=== PATIENT | female | born 2000 ===

== ENCOUNTER 2024-11-21 08:14 | Outpatient (AMB) | payer BC, SELFPAY ==
--- NOTE | 2024-11-21 08:23 | OBCLNT_ITS ---
Vital Signs 11/21/24 08:24 Height 1.65 m Height Method Stated Weight 84.028 kg Weight Measurement Method Standing Scale BMI 30.8 BP 127/84 Blood Pressure Source Automatic Cuff Blood Pressure Location Left Upper Arm Position Sitting Respiration 18 Pulse 76 Pulse Source Monitor Temp 96.8 F Temp Source Oral Pulse Oximetry (%) 98 Oxygen Delivery Method Room Air Allergies/Home Meds Allergies & Medications Allergies No Known Allergies Allergy (Verified 11/21/24 08:26) Medication Reconciliation No Known Home Medications 11/21/24 [History Confirmed 11/21/24] Intake Visit Data Collection New Patient or Established: New Patient not seen in past 3 years at [facility] (considered New) Reason for Visit:: First visit for at 7 weeks gestation Seen by Clinical Staff ONLY (RN/MA): No Ice Skating Teacher Required: No Do You Feel Safe at Home: Yes Authorities Contacted: N/A PCP or OBGYN visit in last 3 months: No Hx Now: Yes Are you currently on any form of Control: No Last menstrual period: 09/22/24 Pain Present Currently: No Pain Scale Used: Maya-Hall/Numerical Pain scale:: 0 Smoking Status Smoking Status: Never smoker Questionnaires Covid-19 Vaccine Questionnaire Has patient been vacinated for Covid-19 Have you been vacinated for Covid-19: No PHQ-9 PHQ-2 Over the last 2 weeks, how often have you been bothered by any of the following problems? 1. Little interest or pleasure in doing things: not at all 2. Feeling down, depressed, or hopeless: not at all Total score: 0 PHQ-9 3. Trouble falling or staying asleep, or sleeping too much: Not at all 4. Feeling tired or having little energy: Not at all 5. Poor appetite or overeating: Not at all 6. Feeling bad about yourself - or that you are a failure or have let yourself or your family down: Not at all 7. Trouble concentrating on things, such as reading the newspaper or watching television: Not at all 8. Moving or speaking so slowly that other people could have noticed? - Or the opposite - being so fidgety or restless that you have been moving around a lot more than usual: not at all 9. Thoughts that you would be better off or of hurting yourself in some way: Not at all Total score: 0 If you checked off any problems, how difficult have these problems made it for you to do your work, take care of things at home, or get along with other people?: not difficult at all Source: Developed by Drs. Brian Gamble, Marsha Calle, Nayan Regan and colleagues, with an educational rayray from [employer]. Depression screen completed yes Social History Living Situation History Marital Status: Single Lives With: Family Housing: House Tobacco History Smoking Status: Never smoker Alcohol History Alcohol Intake: Never Domestic Abuse History Do You Feel Safe at Home: Yes Past Medical History Past Medical History Have you ever been diagnosed with any of the following: History of Present Illness HPI Narrative María Wisdom, a 21-year-old female, presents for her first visit. She reports her last menstrual period was on September 22, 2024, placing her at approximately 7 weeks gestation with an estimated due date of July 10, 2025. This is her first . The patient reports experiencing mild nausea but denies vomiting. She also notes breast tenderness. María mentions having some cramping at the beginning of her , which she attributes to dehydration during implantation. She states that increasing her fluid intake has alleviated this symptom. The patient has a history of fibroids, which were diagnosed through an ultrasound performed in November of the previous year by Dr. Easton Duong at [facility]. María is accompanied by her partner, Presley, who is also 21 years old. The patient appears to be continuing her regular work routine, as she mentions going to work after the appointment. No significant changes in overall health status or daily functioning are reported. Medical History - Uterine fibroids, diagnosed via ultrasound in November 2023 Social History - Relationship Status: In a relationship with partner Presley, age 21 Review of Systems General: Positive for breast tenderness. Gastrointestinal: Positive for mild nausea, negative for vomiting. OB Ultrasound OB Ultrasound Ultrasound technique: transabdominal Gestational sac assessment: Presence, location, size, shape: - Ultrasound (ThuNov 21 2024): - Gestational sac visualized - heart rate: 165 bpm - Fibroid noted outside of sac OB Initial Visit OB Flowsheet OB Flowsheet Initial Weight: Not Recorded Date -?-?-?-?-?-?-?-?-?-?-?-?- EGA Weight Edema CTX Effacement BP Fundal ht Pres Dilation Effacement Station Visit Note Alb Glu FHR Mov 11/21/24 -?-?-?-?-?-?-?-?-?-?-?-?- 8w 4d 84.028 kg 127/84 21-ye ar-old , presents for her first visit. experiencing mild nausea but denies vomi ting. She also notes breast tenderness. Uterine fibroids, diagnosed via ultrasou nd in November 2023. - Ultrasound (ThuNov 21 2024): - Gestational sac visualized - heart rate: 165 bpm - Fibroid noted outside of s ac. - Perform initial lab tests - Schedule NIPT (non-invasive t esting) at 9 weeks gestation for genetic screening and optional sex determination - Schedule 12-week ultrasound for offici al dating and anatomical survey - Schedule 20-week ultrasound for detail ed anatomical survey - Follow-up appointment in 7-10 days to review lab results and repeat ultrasound 165 Menstrual History Menstrual reliability: definite Flow: normal Menstrual regularity: regular Age at menarche: 9 On control pills at conception: No Date of positive home test: 10/15/24 OB History : 1 Para: 0 Hx # Pregnancies: 0 Hx Total # of Abortions (Spontaneous & Elective): 0 # of Living Children: 0 Infection History & Risk Evaluation History of STDs: none HIV risk evaluation: low risk Hepatitis B risk evaluation: low risk Patient or partner has history of Genital Herpes: No Varicella/chicken pox status: immunized Genetic Screening & History Genetic Screening/Teratology Counseling - Includes patient, baby's father, or anyone in either family with: 1. Patient's age 35 years or older as of estimated date of delivery: No 2. Thalassemia (Montenegrin, Cymraes, Mediterranean, or Background); MCV less than 80: No 3. Neural Tube Defect (Meningomyelocele, Spina Bifida, or Anencephaly): No 4. Congenital Heart Defect: No 5. Down Syndrome: No 6. Michel-Sachs (Ashkenazi Episcopalian, Cajun, Sinhala [place]): No 7. Kaye Disease (Ashkenazi Episcopalian): No 8. Familial Dysautonomia (Ashkenazi Episcopalian): No 9. Sickle Cell Disease or Trait (): No 10. Hemophilia or other blood disorders: No 11. Muscular Dystrophy: No 12. Cystic Fibrosis: No 13. [place]'s Chorea: No 14. Mental Retardation/Autism: No 15. Other inherited genetic or chromosomal disorder: No 16. Maternal Metabolic Disorder (EG,TYPE 1 Diabetes, PKU): No 17. Patient or baby's father had a child with defects not listed above: No 18. Recurrent loss or a stillbirth: No 19. Medications (including supplements, vitamins, herbs or otc drugs)/illicit/recreational drugs/alcohol since last menstrual period: No 20. Any other: No Infection History 1. Live with someone with TB or exposed to TB: No 2. Rash or viral illness since last menstrual period: No 3. Hepatitis B,C: No Other (see comments) Source: [employer] Assessment & Plan Diagnosis / Problem List (1) Supervision of high risk , unspecified, first trimester: Status: Acute Plan Jaky Wisdom, a 21-year-old female, presents for her first visit at 7 weeks gestation with an estimated due date of July 10, 2025, based on LMP of September 22, 2024. Intrauterine Assessment: Patient presents for first visit. LMP on September 22, 2024, yields an estimated gestational age of 7 weeks and an estimated due date of July 10, 2025. Transvaginal ultrasound performed in office confirms intrauterine with cardiac activity present. heart rate measured at 165 bpm, which is within normal range for gestational age. Patient reports mild nausea and breast tenderness, consistent with early symptoms. She also experienced some mild cramping early in , which has resolved with improved hydration. Plan: - Perform initial lab tests - Schedule NIPT (non-invasive testing) at 9 weeks gestation for genetic screening and optional sex determination - Schedule 12-week ultrasound for official dating and anatomical survey - Schedule 20-week ultrasound for detailed anatomical survey - Follow-up appointment in 7-10 days to review lab results and repeat ultrasound Uterine fibroids Assessment: Patient has a history of uterine fibroids, diagnosed by ultrasound in November of the previous year. Current ultrasound shows fibroid(s) present but not interfering with the gestational sac. Fibroids are expected to remain stable throughout and are not anticipated to cause complications. Plan: - Continue to monitor fibroids during routine care - No specific intervention required at this time Office Procedures OB Clinic LOC & Office Proc's Nursing/Assessment Patient Status: Initial/New Patient OB Clinic Nursing Assessment: BP Monitoring, Medication Reconciliation, Update PMH in EMR and Vital Signs OB Clinic Coordination of Care: Complex Care and Chronic Disease 1-5, Consent,records obtained, informed consent, Lab and Imaging orders and Staff clarify orders New Patient Charge New Patient Point Assignment: [id number] New Patient Point Charge: SPORTS MARKETER Level 3 ([id number]) Bedside Ultrasounds US Transabdominal <14 weeks at bedside: Yes
[2024-11-21 08:24] VITALS: BP 127/84; PULSE 76; RESP 18; TEMP 36; O2SAT 98; BMI 30.8
== END 2024-11-21 08:56 | disposition home or self-care (01) ==
LOC: HODSOBC 08:14
PROVIDERS: PCP Physician Assistant; Referring Provider Physician Assistant; Supervising Provider Obstetrics & Gynecology; Visit Provider Obstetrics & Gynecology
DX: O09.891 Supervision of other high risk pregnancies, first trimester (principal); Z3A.08 8 weeks gestation of pregnancy; O34.11 Maternal care for benign tumor of corpus uteri, first trimester; D25.9 Leiomyoma of uterus, unspecified
CPT/HCPCS: 76801; 99203; G0463

== ENCOUNTER → 2024-11-21 | Outpatient (CLI) | payer BC, SELFPAY ==
[2024-11-21 10:17] LABS: Misc Send Out* See Sep Rpt
[2024-11-21 10:54] LABS: Thyroid Stimulating Hormone 0.53 uIU/mL (0.55-4.78)
[2024-11-21 11:11] LABS: Collection Type, Urine Clean Catch; RBC,Urine 0 /hpf (0-3)
[2024-11-21 11:11] LABS: Syphilis Nonreactive (Nonreactive)
[2024-11-21 11:36] LABS: Hepatitis B Surface Antigen Non Reactive (Non React); Hepatitis C Antibody Non Reactive (Non React); Rubella, IgG Antibody Reactive (Immune)
[2024-11-21 11:49] LABS: HIV (1&2) Antibody Rapid Non-Reactive
[2024-11-21 12:37] LABS: Bacteria,Urine Rare; Bilirubin,Urine Negative (Negative); Blood,Urine Negative (Negative); Color,Urine Lt-Yellow (Lt Yel-Yel); Culture Indicated,Urine Not Indicated; Glucose, Urine Negative (Negative); Ketones,Urine Negative (Negative); Leukocyte Esterase,Urine Negative (Negative); Nitrite,Urine Negative (Negative); Protein,Urine Negative (Neg - Trace); Specific Gravity,Urine 1.008 (1.001-1.035); Squamous Epithelial Cell,Urine 13 /hpf (0-5); Transitional Epi Cells,Urine < 1 /hpf (0-5); Urobilinogen,Urine Negative mg/dL (0.0-1.0); WBC,Urine 2 /hpf (0-5)
[2024-11-21 12:53] LABS: Clarity,Urine Hazy (Clear/Hazy)
[2024-11-21 15:35] LABS: Chlamydia trachomatis PCR Negative (Not Detect); Neisseria Gonorrhoeae DNA PCR Negative (Not Detect); Trichomonas Negative (Negative)
[2024-11-24 07:26] LABS: Varicella-Zoster IgG Ab* 7.95 S/CO
== END | disposition home or self-care (01) ==
LOC: COPL 09:32
PROVIDERS: PCP Physician Assistant; Referring Provider Obstetrics & Gynecology; Visit Provider Obstetrics & Gynecology
DX: O09.91 Supervision of high risk pregnancy, unspecified, first trimester (principal); Z3A.00 Weeks of gestation of pregnancy not specified
CPT/HCPCS: 36415; 81001; 84443; 86703; 86762; 86780; 86787; 86803; 86850; 86900; 86901; 87340; 87491; 87591; 87661

== ENCOUNTER 2024-12-06 10:50 | Outpatient (AMB) | payer BC, SELFPAY ==
[2024-12-06 11:02] VITALS: BP 134/87; PULSE 95; RESP 18; TEMP 36.4; O2SAT 98; BMI 30.7
--- NOTE | 2024-12-06 11:02 | OBCLNT_ITS ---
Vital Signs 12/06/24 11:02 Height 1.65 m Height Method Stated Weight 83.461 kg Weight Measurement Method Standing Scale BMI 30.7 BP 134/87 H Blood Pressure Source Automatic Cuff Blood Pressure Location Right Upper Arm Position Sitting Respiration 18 Pulse 95 Pulse Source Monitor Temp 97.5 F Temp Source Temporal Artery Scan Pulse Oximetry (%) 98 Oxygen Delivery Method Room Air Allergies/Home Meds Allergies & Medications Allergies No Known Allergies Allergy (Verified 12/06/24 11:03) Medication Reconciliation vits no.126-ferrous fum 28 mg iron-folic acid 800 mcg tablet (Classic ) tab PO 12/06/24 [History Confirmed 12/06/24] Intake Visit Data Collection New Patient or Established: Established Patient (seen at [facility] within 3 years) Reason for Visit:: obc Do You Feel Safe at Home: Yes Authorities Contacted: N/A PCP or OBGYN visit in last 3 months: Yes Pain Present Currently: No Smoking Status Smoking Status: Never smoker Questionnaires Covid-19 Vaccine Questionnaire Has patient been vacinated for Covid-19 Have you been vacinated for Covid-19: Yes PHQ-9 PHQ-2 Over the last 2 weeks, how often have you been bothered by any of the following problems? 1. Little interest or pleasure in doing things: not at all 2. Feeling down, depressed, or hopeless: not at all Total score: 0 PHQ-9 8. Moving or speaking so slowly that other people could have noticed? - Or the opposite - being so fidgety or restless that you have been moving around a lot more than usual: not at all Source: Developed by Drs. Brian Gamble, Marsha Calle, Nayan Regan and colleagues, with an educational rayray from [employer]. Depression screen completed yes Social History Living Situation History Lives With: Family Housing: House Tobacco History Smoking Status: Never smoker Alcohol History Alcohol Intake: Never Domestic Abuse History Do You Feel Safe at Home: Yes Past Medical History Past Medical History Have you ever been diagnosed with any of the following: History of Present Illness HPI Narrative - María Chaparro presents for a visit at 10 weeks and 5 days gestation. - Patient was previously seen for an early visit. - She reports that her nausea has subsided. - Nausea peaked around 9 weeks of . - Improvement noted between 10 to 15 weeks. - Denies any current issues with vomiting. - No other complaints or concerns reported. No contractions/ LOF/VB, reports good FM No TRINH/VC/RUQ/Epig pain Visit OB Visit Log OB Flowsheet Initial Weight: Not Recorded Date -?-?-?-?-?-?-?-?-?-?-?-?- EGA Weight Edema CTX Effacement BP Fundal ht Pres Dilation Effacement Station Visit Note Alb Glu FHR Mov 11/21/24 -?-?-?-?-?-?-?-?-?-?-?-?- 8w 4d 84.028 kg 127/84 21-ye ar-old , presents for her first visit. experiencing mild nausea but denies vomi ting. She also notes breast tenderness. Uterine fibroids, diagnosed via ultrasou nd in November 2023. - Ultrasound (ThuNov 21 2024): - Gestational sac visualized - heart rate: 165 bpm - Fibroid noted outside of s ac. - Perform initial lab tests - Schedule NIPT (non-invasive t esting) at 9 weeks gestation for genetic screening and optional sex determination - Schedule 12-week ultrasound for offici al dating and anatomical survey - Schedule 20-week ultrasound for detail ed anatomical survey - Follow-up appointment in 7-10 days to review lab results and repeat ultrasound 165 12/06/24 -?-?-?-?-?-?-?-?-?-?-?-?- 10w 5d 83.461 kg 134/87 No C TX/LOF/VB. Reports good FM. No TRINH/VS, Epig/RUQ pain. Nausea peaked around 9w and has now subs ided. Denies vomiting or other concerns. Ultrasound: FHR 165 bpm. head, bod y, limbs visualized. Labs: Blood type O Rh-negative, Ab scree n negative, TSH 0.53. UA: epithelial cells present. STI panel and infectious labs negative. Rubella immune, varicella IgG positive. NIPT pending. Assessment & Plan: 10w5d IUP, reassuring findings, resolved early symptoms. Rh-negative. Schedule NT scan at [place] Provide [facility] form for NIPT Social Media Job Titles on Rhogam if any bleeding occurs Continue routine care Reviewed labor signs and routine counseling No CTX/LOF/VB. Reports good FM. No TRINH/VS, Epig/RUQ pain. Nausea peaked around 9w and has now subs ided. Denies vomiting or other concerns. Ultrasound: FHR 165 bpm. head, bod y, limbs visualized. Labs: Blood type O Rh-negative, Ab scree n negative, TSH 0.53. UA: epithelial cells present. STI panel and infectious labs negative. Rubella immune, varicella IgG positive. NIPT pending. Assessment & Plan: 10w5d IUP, reassuring findings, resolved early symptoms. Rh-negative. Schedule NT scan at [place] Provide [facility] form for NIPT Social Media Job Titles on Rhogam if any bleeding occurs Continue routine care Reviewed labor signs and routine counseling. Laboratory, Imaging, and Diagnostic Test Results - Date: 11/21/2024 - Blood group: O negative - Antibody screen: Negative - TSH: 0.53 - Urinalysis: Squamous epithelial cell s present, otherwise within normal limits - Syphilis serology: Negative - Gonorrhea: Negative - Chlamydia: Negative - Hepatitis B: Negative - Hepatitis C: Negative - HIV 1 and 2: Negative - Rubella: Immune - Trichomonas: Negative - Varicella zoster antibody: Positive - Ultrasound (12/06/2024): - Gestational age: 10 weeks 2 days - heart rate: 165 bpm - anatomy: Head, body, hands, and legs visualized 165 RASHAAD Calculator Estimated Delivery Date Method Current WG Current Estimate 06/29/25 LMP (Certain) 11w 0d Exam General General Appearance: alert, in no apparent distress and healthy appearing Head Head exam: atraumatic Neck Neck exam: Present normal inspection and trachea midline Chest Chest inspection: Present normal inspection and symmetric chest wall rise External exam: Present normal external exam; Absent tenderness Neuro Neurological exam: Present oriented X3 Psych Psychiatric exam: Present normal affect and normal mood Assessment & Plan Diagnosis / Problem List (1) Supervision of high risk , unspecified, first trimester: Status: Acute Plan María Chaparro, at 10 weeks 5 days gestation, presents for routine visit with recent lab results. Intrauterine Assessment: Patient is at 10 weeks and 2 days gestation based on previous ultrasound. Current ultrasound shows a viable fetus with heart rate of 165 bpm. Head, body, hands, and legs visualized. Patient reports improvement in nausea and vomiting symptoms, which is consistent with expected course of first trimester symptoms. Plan: - Continue routine care - Nuchal translucency ultrasound scheduled at [facility] - Order Non-Invasive Testing (NIPT) - Provide lab slip for NIPT - Educate patient on importance of communicating O negative blood type in case of bleeding or ER visits - Administer RhoGAM as indicated for O negative blood type - Follow up after nuchal translucency ultrasound results laboratory results Assessment: Recent labs (11/21/2024) show: - Blood type: O negative with negative antibody screen - TSH: 0.53 (within normal limits) - Urinalysis: Squamous epithelial cells present, otherwise normal - Negative results for syphilis, gonorrhea, chlamydia, hepatitis B, hepatitis C, HIV 1 and 2 - Rubella immune - Trichomonas negative - Varicella zoster antibody positive These results indicate appropriate immune status and absence of common infections. Plan: - No further action needed for completed labs - Await NIPT results Office Procedures OB Clinic LOC & Office Proc's Nursing/Assessment Patient Status: Established Patient OB Clinic Nursing Assessment: BP Monitoring, Medication Reconciliation, Update PMH in EMR and Vital Signs OB Clinic Coordination of Care: Complex Care and Chronic Disease 1-5, Education Complex Pt/Fam and Staff clarify orders Established Patient Charge Established Patient Point Assignment: 100 Established Patient Point Charge: EP Level 3 (80-115)
== END 2024-12-06 11:31 | disposition home or self-care (01) ==
LOC: HODSOBC 10:50
PROVIDERS: PCP Obstetrics & Gynecology; Referring Provider Obstetrics & Gynecology; Supervising Provider Obstetrics & Gynecology; Visit Provider Obstetrics & Gynecology
DX: O09.91 Supervision of high risk pregnancy, unspecified, first trimester (principal); Z3A.10 10 weeks gestation of pregnancy
CPT/HCPCS: 99213; G0463

== ENCOUNTER 2025-01-04 10:58 | Outpatient (AMB) | payer BC, SELFPAY ==
[2025-01-04 11:04] VITALS: BP 124/84; PULSE 84; RESP 16; TEMP 36.6; O2SAT 98; BMI 30.4
--- NOTE | 2025-01-04 11:04 | AMB.OBVISIT ---
Vital Signs 01/04/25 11:04 Height 1.65 m Height Method Stated Weight 83.064 kg Weight Measurement Method Standing Scale BMI 30.4 BP 124/84 Blood Pressure Source Automatic Cuff Blood Pressure Location Right Upper Arm Position Sitting Respiration 16 Pulse 84 Pulse Source Monitor Temp 97.9 F Temp Source Oral Pulse Oximetry (%) 98 Oxygen Delivery Method Room Air Allergies/Home Meds Allergies & Medications Allergies No Known Allergies Allergy (Verified 01/04/25 11:05) Medication Reconciliation vits no.126-ferrous fum 28 mg iron-folic acid 800 mcg tablet (Classic ) tab PO 12/06/24 [History Confirmed 01/04/25] Intake Visit Data Collection New Patient or Established: Established Patient (seen at [facility] within 3 years) Reason for Visit:: CARE Seen by Clinical Staff ONLY (RN/MA): No Test Operator Required: No Do You Feel Safe at Home: Yes Authorities Contacted: N/A PCP or OBGYN visit in last 3 months: Yes Hx Now: Yes Are you currently on any form of Control: No Pain Present Currently: No Pain Scale Used: Maya-Hall/Numerical Pain scale:: 0 Smoking Status Smoking Status: Never smoker Questionnaires Covid-19 Vaccine Questionnaire Has patient been vacinated for Covid-19 Have you been vacinated for Covid-19: Yes PHQ-9 PHQ-2 Over the last 2 weeks, how often have you been bothered by any of the following problems? 1. Little interest or pleasure in doing things: not at all 2. Feeling down, depressed, or hopeless: not at all Total score: 0 PHQ-9 3. Trouble falling or staying asleep, or sleeping too much: Not at all 4. Feeling tired or having little energy: Not at all 5. Poor appetite or overeating: Not at all 6. Feeling bad about yourself - or that you are a failure or have let yourself or your family down: Not at all 7. Trouble concentrating on things, such as reading the newspaper or watching television: Not at all 8. Moving or speaking so slowly that other people could have noticed? - Or the opposite - being so fidgety or restless that you have been moving around a lot more than usual: not at all 9. Thoughts that you would be better off or of hurting yourself in some way: Not at all Total score: 0 Source: Developed by Drs. Brian Gamble, Marsha Calle, Nayan Regan and colleagues, with an educational rayray from [employer]. Depression screen completed yes Social History Living Situation History Lives With: Family Housing: House Tobacco History Smoking Status: Never smoker Alcohol History Alcohol Intake: Never Domestic Abuse History Do You Feel Safe at Home: Yes History of Present Illness HPI Narrative The patient is a 24-year-old G1, P0 who usually sees Dr. Amos who was scheduled today by accident. She presents for a routine OB visit. 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 She has a structural survey scheduled with [facility] but Dr. Cardozo is ordered. Her NIPT is back at [facility] OB Visit Log OB Flowsheet Initial Weight: Not Recorded Date <del>?</del> EGA Weight BP Alb Glu CTX Pres Fundal ht FHR Mov Dilation Station Effacement Hx Notes Visit Note 11/21/24 <del>?</del> 8w 4d 84.028 kg 127/84 165 21-year-old , presents for her first visit. experiencing mild nausea but denies vomiting. She also notes breast tenderness. Uterine fibroids, diagnosed via ultrasound in November 2023. - Ultrasound (ThuNov 21 2024): - Gestational sac visualized - heart rate: 165 bpm - Fibroid noted outside of sac. - Perform initial lab tests - Schedule NIPT (non-invasive testing) at 9 weeks gestation for genetic screening and optional sex determination - Schedule 12-week ultrasound for official dating and anatomical survey - Schedule 20-week ultrasound for detailed anatomical survey - Follow-up appointment in 7-10 days to review lab results and repeat ultrasound 12/06/24 <del>?</del> 10w 5d 83.461 kg 134/87 165 No CTX/LOF/VB. Reports good FM. No TRINH/VS, Epig/RUQ pain. Nausea peaked around 9w and has now subsided. Denies vomiting or other concerns. Ultrasound: FHR 165 bpm. head, body, limbs visualized. Labs: Blood type O Rh-negative, Ab screen negative, TSH 0.53. UA: epithelial cells present. STI panel and infectious labs negative. Rubella immune, varicella IgG positive. NIPT pending. Assessment & Plan: 10w5d IUP, reassuring findings, resolved early symptoms. Rh-negative. Schedule NT scan at [place] Provide [facility] form for NIPT Clinical Research Technician on Rhogam if any bleeding occurs Continue routine care Reviewed labor signs and routine counseling No CTX/LOF/VB. Reports good FM. No TRINH/VS, Epig/RUQ pain. Nausea peaked around 9w and has now subsided. Denies vomiting or other concerns. Ultrasound: FHR 165 bpm. head, body, limbs visualized. Labs: Blood type O Rh-negative, Ab screen negative, TSH 0.53. UA: epithelial cells present. STI panel and infectious labs negative. Rubella immune, varicella IgG positive. NIPT pending. Assessment & Plan: 10w5d IUP, reassuring findings, resolved early symptoms. Rh-negative. Schedule NT scan at [place] Provide [facility] form for NIPT Clinical Research Technician on Rhogam if any bleeding occurs Continue routine care Reviewed labor signs and routine counseling. Laboratory, Imaging, and Diagnostic Test Results - Date: 11/21/2024 - Blood group: O negative - Antibody screen: Negative - TSH: 0.53 - Urinalysis: Squamous epithelial cells present, otherwise within normal limits - Syphilis serology: Negative - Gonorrhea: Negative - Chlamydia: Negative - Hepatitis B: Negative - Hepatitis C: Negative - HIV 1 and 2: Negative - Rubella: Immune - Trichomonas: Negative - Varicella zoster antibody: Positive - Ultrasound (12/06/2024): - Gestational age: 10 weeks 2 days - heart rate: 165 bpm - anatomy: Head, body, hands, and legs visualized 01/04/25 <del>?</del> 14w 6d 83.064 kg 124/84 140 No movement no bleeding no contractions RASHAAD Calculator Estimated Delivery Date Method Current WG Current Estimate 06/29/25 LMP (Certain) 14w 6d Comments: labs:O- /antibody screen negative/ hepatitis B surface antigen negative /GC chlamydia negative /rubella immune/ RPR nonreactive /HIV negative /hep C negative Specific Issue/Plans Rh-. Will need RhoGAM. Notes Visit Date: 01/04/25 Last Updated by: Sandra Seals (OB Clinic)MD NIPT reviewed with patient and father the baby [facility] Office Procedures OB Clinic LOC & Office Proc's Nursing/Assessment Patient Status: Established Patient OB Clinic Nursing Assessment: Medication Reconciliation, Update PMH in EMR and Vital Signs OB Clinic Coordination of Care: Complex Care and Chronic Disease 1-5, Consent,records obtained, informed consent, Education Simp Pt/Fam, Lab and Imaging orders, Results/Orders obtained and Staff clarify orders Special Needs: Heart tones Established Patient Charge Established Patient Point Assignment: 135 Established Patient Point Charge: EP Level 4 (120-155) Assessment & Plan Diagnosis / Problem List (1) : Status: Acute Qualifiers: Weeks of gestation: 14 weeks Qualified Code(s): Z3A.14 - 14 weeks gestation of Assessment and Plan: 's labs are on the chart. Level 2 ultrasound was ordered. NIPT is back. Follow-up with Dr. Chauhan in 4 weeks.
== END 2025-01-04 11:31 | disposition home or self-care (01) ==
LOC: HODSOBC 10:58
PROVIDERS: PCP Obstetrics & Gynecology; Referring Provider Obstetrics & Gynecology; Supervising Provider Obstetrics & Gynecology; Visit Provider Obstetrics & Gynecology
DX: Z34.02 Encounter for supervision of normal first pregnancy, second trimester (principal); Z3A.14 14 weeks gestation of pregnancy; Z67.41 Type O blood, Rh negative
CPT/HCPCS: 99214; G0463

== ENCOUNTER 2025-02-01 09:47 | Outpatient (AMB) | payer BC, SELFPAY ==
[2025-02-01 09:54] VITALS: BP 120/84; PULSE 88; RESP 17; TEMP 36.5; O2SAT 98; BMI 30.5
--- NOTE | 2025-02-01 09:54 | AMB.OBVISIT ---
Vital Signs 02/01/25 09:54 Height 1.65 m Height Method Stated Weight 83.121 kg Weight Measurement Method Standing Scale BMI 30.5 BP 120/84 Blood Pressure Source Automatic Cuff Blood Pressure Location Right Upper Arm Position Sitting Respiration 17 Pulse 88 Pulse Source Monitor Temp 97.7 F Temp Source Temporal Artery Scan Pulse Oximetry (%) 98 Oxygen Delivery Method Room Air Allergies/Home Meds Allergies & Medications Allergies No Known Allergies Allergy (Verified 02/01/25 09:55) Medication Reconciliation vits no.126-ferrous fum 28 mg iron-folic acid 800 mcg tablet (Classic ) tab PO 12/06/24 [History Confirmed 02/01/25] Intake Visit Data Collection New Patient or Established: Established Patient (seen at [facility] within 3 years) Reason for Visit:: OBC Seen by Clinical Staff ONLY (RN/MA): No Urogynaecologist Required: No Do You Feel Safe at Home: Yes Authorities Contacted: N/A PCP or OBGYN visit in last 3 months: Yes Date of Last PCP or OBGYN visit: 01/04/25 Hx Now: Yes Pain Present Currently: No Pain Scale Used: Maya-Hall/Numerical Pain scale:: 0 Smoking Status Smoking Status: Never smoker Questionnaires Covid-19 Vaccine Questionnaire Has patient been vacinated for Covid-19 Have you been vacinated for Covid-19: No PHQ-9 PHQ-2 Over the last 2 weeks, how often have you been bothered by any of the following problems? 1. Little interest or pleasure in doing things: not at all 2. Feeling down, depressed, or hopeless: not at all Total score: 0 PHQ-9 3. Trouble falling or staying asleep, or sleeping too much: Not at all 4. Feeling tired or having little energy: Not at all 5. Poor appetite or overeating: Not at all 6. Feeling bad about yourself - or that you are a failure or have let yourself or your family down: Not at all 7. Trouble concentrating on things, such as reading the newspaper or watching television: Not at all 8. Moving or speaking so slowly that other people could have noticed? - Or the opposite - being so fidgety or restless that you have been moving around a lot more than usual: not at all 9. Thoughts that you would be better off or of hurting yourself in some way: Not at all Total score: 0 If you checked off any problems, how difficult have these problems made it for you to do your work, take care of things at home, or get along with other people?: not difficult at all Source: Developed by Drs. Brian aGmble, Marsha Calle, Nayan Regan and colleagues, with an educational rayray from [employer]. Depression screen completed yes Social History Living Situation History Marital Status: Life Partner Lives With: Family Housing: House Tobacco History Smoking Status: Never smoker Alcohol History Alcohol Intake: Never Domestic Abuse History Do You Feel Safe at Home: Yes History of Present Illness HPI Narrative María Chaparro, , presents for routine visit at 18 weeks and 6 days gestation. Denies TRINH, VC, and epigastric pain. - María Chaparro is a 24-year-old female, 1 para 0, at 18 weeks and 6 days gestation, presenting for routine care. - Estimated due date: 06/29/2025 based on last menstrual period - No current complications reported - Patient starting to feel movement - Describes feeling flickers, particularly on her right side - Denies any concerning symptoms or issues with the - Reports family history of hypertension (father) - Patient mentions history of elevated heart rate - States baseline heart rate has always been high, typically in the hundreds - Previously followed by a director of catering Care OB Visit Log OB Flowsheet Initial Weight: Not Recorded Date <del>?</del> EGA Weight BP Alb Glu CTX Pres Fundal ht FHR Mov Dilation Station Effacement Hx Notes Visit Note 11/21/24 <del>?</del> 8w 4d 84.028 kg 127/84 165 21-year-old , presents for her first visit. experiencing mild nausea but denies vomiting. She also notes breast tenderness. Uterine fibroids, diagnosed via ultrasound in November 2023. - Ultrasound (ThuNov 21 2024): - Gestational sac visualized - heart rate: 165 bpm - Fibroid noted outside of sac. - Perform initial lab tests - Schedule NIPT (non-invasive testing) at 9 weeks gestation for genetic screening and optional sex determination - Schedule 12-week ultrasound for official dating and anatomical survey - Schedule 20-week ultrasound for detailed anatomical survey - Follow-up appointment in 7-10 days to review lab results and repeat ultrasound 12/06/24 <del>?</del> 10w 5d 83.461 kg 134/87 165 No CTX/LOF/VB. Reports good FM. No TRINH/VS, Epig/RUQ pain. Nausea peaked around 9w and has now subsided. Denies vomiting or other concerns. Ultrasound: FHR 165 bpm. head, body, limbs visualized. Labs: Blood type O Rh-negative, Ab screen negative, TSH 0.53. UA: epithelial cells present. STI panel and infectious labs negative. Rubella immune, varicella IgG positive. NIPT pending. Assessment & Plan: 10w5d IUP, reassuring findings, resolved early symptoms. Rh-negative. 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 Reports good FM. No TRINH/VS, Epig/RUQ pain. Nausea peaked around 9w and has now subsided. Denies vomiting or other concerns. Ultrasound: FHR 165 bpm. head, body, limbs visualized. Labs: Blood type O Rh-negative, Ab screen negative, TSH 0.53. UA: epithelial cells present. STI panel and infectious labs negative. Rubella immune, varicella IgG positive. NIPT pending. Assessment & Plan: 10w5d IUP, reassuring findings, resolved early symptoms. Rh-negative. Schedule NT scan at [place] Provide [facility] form for NIPT Carpenter Helper [employer] Flooring on Rhogam if any bleeding occurs Continue routine care Reviewed labor signs and routine counseling. Laboratory, Imaging, and Diagnostic Test Results - Date: 11/21/2024 - Blood group: O negative - Antibody screen: Negative - TSH: 0.53 - Urinalysis: Squamous epithelial cells present, otherwise within normal limits - Syphilis serology: Negative - Gonorrhea: Negative - Chlamydia: Negative - Hepatitis B: Negative - Hepatitis C: Negative - HIV 1 and 2: Negative - Rubella: Immune - Trichomonas: Negative - Varicella zoster antibody: Positive - Ultrasound (12/06/2024): - Gestational age: 10 weeks 2 days - heart rate: 165 bpm - anatomy: Head, body, hands, and legs visualized 01/04/25 <del>?</del> 14w 6d 83.064 kg 124/84 140 No movement no bleeding no contractions 02/01/25 <del>?</del> 18w 6d 83.121 kg 120/84 142 active at 18w6d, RASHAAD 06/29/25. Denies TRINH/VC/epigastric pain. Starting to feel FM ( flickers ) on right side. Hx elevated HR, followed by cardiology. Family hx HTN (father). FHR 142, cephalic presentation. US shows normal anatomy, female fetus. Genetics negative. Anatomy scan next week at [facility], FU ~24w with glucose screening, routine care. RASHAAD Calculator Estimated Delivery Date Method Current WG Current Estimate 06/29/25 LMP (Certain) 19w 3d Specific Issue/Plans Rh-. Will need RhoGAM. Notes Visit Date: 01/04/25 Last Updated by: Sandra Seals (OB Clinic), NIPT reviewed with patient and father the baby [facility]XX Exam General General Appearance: alert, in no apparent distress and healthy appearing Head Head exam: atraumatic Neck Neck exam: Present normal inspection and trachea midline Chest Chest inspection: Present normal inspection and symmetric chest wall rise External exam: Present normal external exam; Absent tenderness Neuro Neurological exam: Present oriented X3 Psych Psychiatric exam: Present normal affect and normal mood Office Procedures OB Clinic LOC & Office Proc's Nursing/Assessment Patient Status: Established Patient OB Clinic Nursing Assessment: Medication Reconciliation, Update PMH in EMR and Vital Signs OB Clinic Coordination of Care: Complex Care and Chronic Disease 1-5, Consent,records obtained, informed consent, Education Simp Pt/Fam and Staff clarify orders Special Needs: Heart tones Established Patient Charge Established Patient Point Assignment: 115 Established Patient Point Charge: EP Level 3 (80-115) Assessment & Plan Diagnosis / Problem List (1) : Status: Acute Qualifiers: Weeks of gestation: 14 weeks Qualified Code(s): Z3A.14 - 14 weeks gestation of (2) Supervision of high risk , unspecified, first trimester: Status: Acute Plan Problem List - , first trimester - Family history of hypertension - Tachycardia Assessment 18 weeks and 6 days female () presenting for routine care. heart rate 142 bpm, within normal limits. Ultrasound reveals normal anatomy with head position noted. Genetic screening results negative. Patient reports feeling movement, primarily on the right side. No current complications reported. Patient has family history of hypertension (father). Patient's baseline heart rate noted to be elevated, with history of cardiology follow-up. No current hypertension reported in patient. Plan - Schedule next appointment close to 24 weeks gestation - Order glucose test for diabetes screening at 24 weeks - Continue routine care - Attend anatomy scan ultrasound next week at [facility] This visit does not meet the criteria for the provided format request. The patient is at 18 weeks and 6 days gestation, which is less than 20 weeks. Additionally, this appears to be a routine visit, not an initial visit. Therefore, the specific format provided is not applicable to this particular encounter.
== END 2025-02-01 10:16 | disposition home or self-care (01) ==
LOC: HODSOBC 09:47
PROVIDERS: PCP Obstetrics & Gynecology; Referring Provider Obstetrics & Gynecology; Supervising Provider Obstetrics & Gynecology; Visit Provider Obstetrics & Gynecology
DX: O09.92 Supervision of high risk pregnancy, unspecified, second trimester (principal); Z3A.18 18 weeks gestation of pregnancy; Z82.49 Family history of ischemic heart disease and other diseases of the circulatory system
CPT/HCPCS: 99213; G0463

== ENCOUNTER 2025-03-15 10:59 | Outpatient (AMB) | payer BC, SELFPAY ==
[2025-03-15 11:11] VITALS: BP 125/84; PULSE 93; RESP 17; TEMP 36.7; O2SAT 97; BMI 30.9
--- NOTE | 2025-03-15 11:11 | OBCLNT_ITS ---
Vital Signs 03/15/25 11:11 Height 1.65 m Height Method Measured Weight 84.368 kg Weight Measurement Method Standing Scale BMI 30.9 BP 125/84 Blood Pressure Source Automatic Cuff Blood Pressure Location Right Upper Arm Position Sitting Respiration 17 Pulse 93 Pulse Source Monitor Temp 98.1 F Temp Source Temporal Artery Scan Pulse Oximetry (%) 97 Oxygen Delivery Method Room Air Allergies/Home Meds Allergies & Medications Allergies No Known Allergies Allergy (Verified 05/19/25 11:38) Medication Reconciliation vits no.126-ferrous fum 28 mg iron-folic acid 800 mcg tablet (Classic ) tab PO 12/06/24 [History Confirmed 05/19/25] aspirin 81 mg tablet 81 mg PO QDAY 90 days #90 tabs 03/15/25 [Rx Confirmed 05/19/25] blood sugar diagnostic (Blood Glucose Test strips) #100 ea 04/21/25 [Rx Confirmed 05/19/25] blood-glucose meter #1 ea 04/21/25 [Rx Confirmed 05/19/25] lancets 21 gauge #100 ea 04/21/25 [Rx Confirmed 05/19/25] metformin 500 mg tablet 500 mg PO QDAY 90 days #90 tabs 04/21/25 [Rx Confirmed 05/19/25] Intake Visit Data Collection New Patient or Established: Established Patient (seen at [facility] within 3 years) Reason for Visit:: OBC Consent obtained for Telemed Visit: No Seen by Clinical Staff ONLY (RN/MA): No [employer] Members[employer] Sales Agent Required: No Do You Feel Safe at Home: Yes Authorities Contacted: N/A PCP or OBGYN visit in last 3 months: Yes Date of Last PCP or OBGYN visit: 02/01/25 Hx Now: Yes Are you currently on any form of Control: No Pain Present Currently: No Pain Scale Used: Maya-Hall/Numerical Pain scale:: 0 Smoking Status Smoking Status: Never smoker Questionnaires Covid-19 Vaccine Questionnaire Has patient been vacinated for Covid-19 Have you been vacinated for Covid-19: No PHQ-9 PHQ-2 Over the last 2 weeks, how often have you been bothered by any of the following problems? 1. Little interest or pleasure in doing things: not at all PHQ-9 8. Moving or speaking so slowly that other people could have noticed? - Or the opposite - being so fidgety or restless that you have been moving around a lot more than usual: not at all Source: Developed by Drs. Brian Gamble, Marsha Calle, Nayan Regan and colleagues, with an educational rayray from [employer]. Social History Living Situation History Lives With: Family Housing: House Tobacco History Smoking Status: Never smoker Alcohol History Alcohol Intake: Never Domestic Abuse History Do You Feel Safe at Home: Yes Care OB Visit Log OB Flowsheet Initial Weight: Not Recorded Date -?-?-?-?-?-?-?-?-?-?-?-?- EGA Weight BP Alb Glu CTX Pres Fundal ht FHR Mov Dilation Station Effacement Hx Notes Visit Note 11/21/24 -?-?-?-?-?-?-?--?-?-?-?-?- 8w 4d 84.028 kg 127/84 165 21-year-old , presents for her first visit. experiencing mild nausea but denies vomi ting. She also notes breast tenderness. Uterine fibroids, diagnosed via ultrasou nd in November 2023. - Ultrasound (ThuNov 21 2024): - Gestational sac visualized - heart rate: 165 bpm - Fibroid noted outside of s ac. - Perform initial lab tests - Schedule NIPT (non-invasive t esting) at 9 weeks gestation for genetic screening and optional sex determination - Schedule 12-week ultrasound for offici al dating and anatomical survey - Schedule 20-week ultrasound for detail ed anatomical survey - Follow-up appointment in 7-10 days to review lab results and repeat ultrasound 12/06/24 -?-?-?-?-?-?-?-?-?-?-?-?- 10w 5d 83.461 kg 134/87 165 No CTX/LOF/VB. Reports good FM. No TRINH/VS, Epig/RUQ pain. Nausea peaked around 9w and has now subs ided. Denies vomiting or other concerns. Ultrasound: FHR 165 bpm. head, bod y, limbs visualized. Labs: Blood type O Rh-negative, Ab scree n negative, TSH 0.53. UA: epithelial cells present. STI panel and infectious labs negative. Rubella immune, varicella IgG positive. NIPT pending. Assessment & Plan: 10w5d IUP, reassuring findings, resolved early symptoms. Rh-negative. 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 Reports good FM. No TRINH/VS, Epig/RUQ pain. Nausea peaked around 9w and has now subs ided. Denies vomiting or other concerns. Ultrasound: FHR 165 bpm. head, bod y, limbs visualized. Labs: Blood type O Rh-negative, Ab scree n negative, TSH 0.53. UA: epithelial cells present. STI panel and infectious labs negative. Rubella immune, varicella IgG positive. NIPT pending. Assessment & Plan: 10w5d IUP, reassuring findings, resolved early symptoms. Rh-negative. 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 Laboratory, Imaging, and Diagnostic Test Results - Date: 11/21/2024 - Blood group: O negative - Antibody screen: Negative - TSH: 0.53 - Urinalysis: Squamous epithelial cell s present, otherwise within normal limits - Syphilis serology: Negative - Gonorrhea: Negative - Chlamydia: Negative - Hepatitis B: Negative - Hepatitis C: Negative - HIV 1 and 2: Negative - Rubella: Immune - Trichomonas: Negative - Varicella zoster antibody: Positive - Ultrasound (12/06/2024): - Gestational age: 10 weeks 2 days - heart rate: 165 bpm - anatomy: Head, body, hands, and legs visualized 01/04/25 -?-?-?-?-?-?-?-?-?-?-?-?- 14w 6d 83.064 kg 124/84 140 No movement no bleeding no contractions 02/01/25 -?-?-?-?-?-?-?-?-?-?-?-?- 18w 6d 83.121 kg 120/84 142 active at 18w6d, RASHAAD 06/29/25. Denies TRINH/VC/epigastric pain. Starting to feel FM ( flickers ) on right side. Hx elevated HR, followed by cardiology. Family hx HTN (father). FHR 142, cephalic presentation. US shows normal anatomy, female fetus. Genetics negative. Anatomy scan next week at [facility], FU ~24w with glucose screening, routine care. 03/15/25 -?-?-?-?-?-?-?-?-?-?-?-?- 24w 6d 84.368 kg 125/84 occasional cephalic 25 158 active - She reports an increase in vaginal discharge that is white with a slight yellow tinge. - Denies foul odor, itching, or pain a ssociated with the discharge. - Wonders if the discharge could be re lated to vitamins. - She mentions a history of tachycardia and monitors her blood pressure at home. - Reports one recent episode where her heart rate was 120 while resting, but blood pressure remained normal. - Had an EKG performed about a year ag o by cardiology with normal results. - She denies symptomatic palpitations. - Patient had a yeast infection about a year ago that was treated with Fluconazole. - Start aspirin daily until delivery for preeclampsia prevention due to family history of hypertension - Treat bacterial vaginosis with topical cream (avoid oral tablets) - Schedule fasting 1-hour glucose tolera nce test - Follow-up appointment in 4 weeks, then transition to every 2 weeks thereafter 05/03/25 -?-?-?-?-?-?-?-?-?-?-?-?- 31w 6d 86.636 kg 130/84 occasional cephalic 32 145 active - She was started on metformin at the last visit for gestational diabetes management. - Patient reports possible episodes of r eactive hypoglycemia after taking metformin: - Experienced low blood sugar after ta niki medication - Ate cereal to raise glucose levels - Fasting blood glucose levels: - Generally within normal range - Highest reported fasting glucose was 99 mg/dL - Post-prandial glucose: - Reports a 2-hour post-prandial gluco se of 147 mg/dL after eating two chicken sandwiches - Current metformin regimen: - Taking 500 mg once daily - movement: - Patient believes the baby has change d position - Feels increased pressure in upper ab domen - Urinary symptoms: - Reports frequent urination, approxim ately every 1.5 hours - Describes feeling of bladder fullnes s - Experiences sensation of heaviness w hen waking at night - Denies any other significant symptoms or concerns - Hold metformin for a week, then resume taking it with lunch - Monitor for hypoglycemia; if it contin ues, discontinue metformin - Telephone appointment scheduled for ne xt Thursday to review glucose logs - A1c test ordered, can be done anytime (non-fasting) - Continue monitoring position; ul trasounds to be performed at each visit - Referral for meat boner and slicer at [facility] [place] has been sent and patient has been contacted - Follow-up in-person appointment in 2 w [facility] 05/08/25 -?-?-?-?-?-?-?-?-?-?-?-?- 32w 4d occasional cephalic 34 - María Chaparro is a female presenting for a televisit for glucose logs and A1c results. - She reports her 2-hour glucose was 76 without metformin, having not taken metformin for 2 days. - She continues to have issues with not being hungry early in the morning and inconsistent eating patterns. - She reports a recent episode of fluid on her underwear with a small amount of white discharge. - Describes the discharge as a tiny am ount of white discharge surrounded by a larger round valley of fluid. - Denies any associated cramping. - Episode appears to have been isolated and has stopped. - Discontinue metformin - If vaginal discharge with fluid contin ues, present to labor and delivery for ultrasound and amniotic fluid assessment - Continue consistent eating patterns - Follow up at scheduled in-person appoi ntment next week RASHAAD Calculator Estimated Delivery Date Method Current WG Current Estimate 06/29/25 LMP (Certain) 35w 2d Specific Issue/Plans Rh-. Will need RhoGAM. Notes Visit Date: 05/03/25 Last Updated by: Miguel Amos MD - Ultrasound: - position: Head down, not engaged in lower pelvis Visit Date: 01/04/25 Last Updated by: Sandra Seals ([facility])MD NIPT reviewed with patient and father the baby [id number] Assessment & Plan Diagnosis / Problem List (1) Supervision of high risk , unspecified, second trimester: Status: Acute Plan Problem List - Bacterial vaginosis - Tachycardia Assessment 24-year-old at 24 weeks 6 days gestation with recent anatomy scan showing normal anatomy and cervix. Patient reports increased vaginal discharge that is white with slight yellow tinge, non-malodorous, non-pruritic, and non- painful, suggestive of bacterial vaginosis. History of tachycardia with resting heart rate of 120 bpm but normal blood pressure; previous EKG one year ago was normal. Patient has family history of hypertension. Plan - Start aspirin daily until delivery for preeclampsia prevention due to family history of hypertension - Treat bacterial vaginosis with topical cream (avoid oral tablets) - Schedule fasting 1-hour glucose tolerance test - Follow-up appointment in 4 weeks, then transition to every 2 weeks thereafter 1. Progress Reviewed gestational age (24 weeks 6 days), growth, and heart rate (158 bpm). Planned frequent visits (every 4 weeks, then every 2 weeks). 2. Instructed patient to monitor movements and report decreases immediately. 3. Testing Counseled on routine third-trimester labs per guidelines (glucose tolerance test scheduled). Discussed potential need for ultrasound or monitoring based on risk factors. 4. Preeclampsia Precaution Educated on preeclampsia signs: severe headache, vision changes, right upper quadrant pain, sudden swelling. Advised urgent reporting of symptoms and discussed blood pressure monitoring if high risk (aspirin prescribed due to family history of hypertension). 5. Labor Precautions Reviewed labor signs: regular contractions, pelvic pressure, back pain, bleeding, or fluid leakage. Instructed to seek immediate care for these symptoms. 6. Lifestyle and Delivery Preparation Reinforced vitamins, nutrition, and safe activity. Discussed plan, pain management, and . Advised on labor preparation (e.g., hospital bag) and expectations. 7. Psychosocial Support Assessed emotional well-being and offered resources for mental health or parenting support.
== END 2025-03-15 11:25 | disposition home or self-care (01) ==
LOC: HODSOBC 10:59
PROVIDERS: PCP Obstetrics & Gynecology; Referring Provider Obstetrics & Gynecology; Supervising Provider Obstetrics & Gynecology; Visit Provider Obstetrics & Gynecology
DX: O09.892 Supervision of other high risk pregnancies, second trimester (principal); O23.592 Infection of other part of genital tract in pregnancy, second trimester; N76.0 Acute vaginitis; O99.891 Other specified diseases and conditions complicating pregnancy; R00.0 Tachycardia, unspecified; Z3A.24 24 weeks gestation of pregnancy; Z82.49 Family history of ischemic heart disease and other diseases of the circulatory system
CPT/HCPCS: 99214; G0463

== ENCOUNTER → 2025-03-29 | Outpatient (CLI) | payer BC, SELFPAY ==
[2025-03-29 09:58] LABS: Glucose,1 Hour PP 50gm Dose 183 mg/dL (80-140)
== END | disposition home or self-care (01) ==
PROVIDERS: PCP Physician Assistant; Referring Provider Obstetrics & Gynecology; Visit Provider Obstetrics & Gynecology
DX: O09.92 Supervision of high risk pregnancy, unspecified, second trimester (principal); Z3A.00 Weeks of gestation of pregnancy not specified
CPT/HCPCS: 36415; 82950

== ENCOUNTER 2025-04-21 09:47 | Outpatient (AMB) | payer BC, SELFPAY ==
[2025-04-21 09:52] VITALS: BP 127/82; PULSE 82; RESP 16; TEMP 36.6; O2SAT 98; BMI 32.0
--- NOTE | 2025-04-21 09:52 | OBCLNT_ITS ---
Vital Signs 04/21/25 09:52 Height 1.65 m Height Method Stated Weight 87.203 kg Weight Measurement Method Standing Scale BMI 32.0 BP 127/82 Blood Pressure Source Automatic Cuff Blood Pressure Location Left Upper Arm Position Sitting Respiration 16 Pulse 82 Pulse Source Monitor Temp 97.9 F Temp Source Oral Pulse Oximetry (%) 98 Oxygen Delivery Method Room Air Allergies/Home Meds Allergies & Medications Allergies No Known Allergies Allergy (Verified 05/19/25 11:38) Medication Reconciliation vits no.126-ferrous fum 28 mg iron-folic acid 800 mcg tablet (Classic ) tab PO 12/06/24 [History Confirmed 05/19/25] aspirin 81 mg tablet 81 mg PO QDAY 90 days #90 tabs 03/15/25 [Rx Confirmed 05/19/25] blood sugar diagnostic (Blood Glucose Test strips) #100 ea 04/21/25 [Rx Con firmed 05/19/25] blood-glucose meter #1 ea 04/21/25 [Rx Confirmed 05/19/25] lancets 21 gauge #100 ea 04/21/25 [Rx Confirmed 05/19/25] metformin 500 mg tablet 500 mg PO QDAY 90 days #90 tabs 04/21/25 [Rx Confirmed 05/19/25] Intake Visit Data Collection New Patient or Established: Established Patient (seen at [facility] within 3 years) Reason for Visit:: CARE Seen by Clinical Staff ONLY (RN/MA): No Aircraft Assembler Required: No Do You Feel Safe at Home: Yes Authorities Contacted: N/A PCP or OBGYN visit in last 3 months: Yes Hx Now: Yes Are you currently on any form of Control: No Pain Present Currently: No Pain Scale Used: Maya-Hall/Numerical Pain scale:: 0 Smoking Status Smoking Status: Never smoker Questionnaires Covid-19 Vaccine Questionnaire Has patient been vacinated for Covid-19 Have you been vacinated for Covid-19: Yes PHQ-9 PHQ-2 Over the last 2 weeks, how often have you been bothered by any of the following problems? 1. Little interest or pleasure in doing things: not at all 2. Feeling down, depressed, or hopeless: not at all Total score: 0 PHQ-9 3. Trouble falling or staying asleep, or sleeping too much: Not at all 4. Feeling tired or having little energy: Not at all 5. Poor appetite or overeating: Not at all 6. Feeling bad about yourself - or that you are a failure or have let yourself or your family down: Not at all 7. Trouble concentrating on things, such as reading the newspaper or watching television: Not at all 8. Moving or speaking so slowly that other people could have noticed? - Or the opposite - being so fidgety or restless that you have been moving around a lot more than usual: not at all 9. Thoughts that you would be better off or of hurting yourself in some way: Not at all Total score: 0 Source: Developed by Drs. Brian Gamble, Marsha Calle, Nayan Regan and colleagues, with an educational rayray from [employer]. Depression screen completed yes Social History Living Situation History Lives With: Family Housing: House Tobacco History Smoking Status: Never smoker Alcohol History Alcohol Intake: Never Domestic Abuse History Do You Feel Safe at Home: Yes Care OB Visit Log OB Flowsheet Initial Weight: Not Recorded Date -?-?-?-?-?-?-?-?-?-?-?-?- EGA Weight BP Alb Glu CTX Pres Fundal ht FHR Mov Dilation Station Effacement Hx Notes Visit Note 11/21/24 -?-?-?-?-?-?-?-?-?-?-?-?- 8w 4d 84.028 kg 127/84 165 21-year-old , presents for her first visit. experiencing mild nausea but denies vomi ting. She also notes breast tenderness. Uterine fibroids, diagnosed via ultrasou nd in November 2023. - Ultrasound (ThuNov 21 2024): - Gestational sac visualized - heart rate: 165 bpm - Fibroid noted outside of s ac. - Perform initial lab tests - Schedule NIPT (non-invasive t esting) at 9 weeks gestation for genetic screening and optional sex determination - Schedule 12-week ultrasound for offici al dating and anatomical survey - Schedule 20-week ultrasound for detail ed anatomical survey - Follow-up appointment in 7-10 days to review lab results and repeat ultrasound 12/06/24 -?-?-?-?-?-?-?-?-?-?-?-?- 10w 5d 83.461 kg 134/87 165 No CTX/LOF/VB. Reports good FM. No TRINH/VS, Epig/RUQ pain. Nausea peaked around 9w and has now subs ided. Denies vomiting or other concerns. Ultrasound: FHR 165 bpm. head, bod y, limbs visualized. Labs: Blood type O Rh-negative, Ab scree n negative, TSH 0.53. UA: epithelial cells present. STI panel and infectious labs negative. Rubella immune, varicella IgG positive. NIPT pending. Assessment & Plan: 10w5d IUP, reassuring findings, resolved early symptoms. Rh-negative. Schedule NT scan at [place] Provide [facility] form for NIPT Training Specialist on Rhogam if any bleeding occurs Continue routine care Reviewed labor signs and routine counseling No CTX/LOF/VB. Reports good FM. No TRINH/VS, Epig/RUQ pain. Nausea peaked around 9w and has now subs ided. Denies vomiting or other concerns. Ultrasound: FHR 165 bpm. head, bod y, limbs visualized. Labs: Blood type O Rh-negative, Ab scree n negative, TSH 0.53. UA: epithelial cells present. STI panel and infectious labs negative. Rubella immune, varicella IgG positive. NIPT pending. Assessment & Plan: 10w5d IUP, reassuring findings, resolved early symptoms. Rh-negative. Schedule NT scan at [place] Provide [facility] form for NIPT Training Specialist on Rhogam if any bleeding occurs Continue routine care Reviewed labor signs and routine counseling. Laboratory, Imaging, and Diagnostic Test Results - Date: 11/21/2024 - Blood group: O negative - Antibody screen: Negative - TSH: 0.53 - Urinalysis: Squamous epithelial cell s present, otherwise within normal limits - Syphilis serology: Negative - Gonorrhea: Negative - Chlamydia: Negative - Hepatitis B: Negative - Hepatitis C: Negative - HIV 1 and 2: Negative - Rubella: Immune - Trichomonas: Negative - Varicella zoster antibody: Positive - Ultrasound (12/06/2024): - Gestational age: 10 weeks 2 days - heart rate: 165 bpm - anatomy: Head, body, hands, and legs visualized 01/04/25 -?-?-?-?-?-?-?-?-?-?-?-?- 14w 6d 83.064 kg 124/84 140 No movement no bleeding no contractions 02/01/25 -?-?-?-?-?-?-?-?-?-?-?-?- 18w 6d 83.121 kg 120/84 142 active at 18w6d, RASHAAD 06/29/25. Denies TRINH/VC/epigastric pain. Starting to feel FM ( flickers ) on right side. Hx elevated HR, followed by cardiology. Family hx HTN (father). FHR 142, cephalic presentation. US shows normal anatomy, female fetus. Genetics negative. Anatomy scan next [facility] at [facility], FU ~24w with glucose screening, routine care. 03/15/25 -?-?-?-?-?-?-?-?-?-?-?-?- 24w 6d 84.368 kg 125/84 occasional cephalic 25 158 active - She reports an increase in vaginal discharge that is white with a slight yellow tinge. - Denies foul odor, itching, or pain a ssociated with the discharge. - Wonders if the discharge could be re lated to vitamins. - She mentions a history of tachycardia and monitors her blood pressure at home. - Reports one recent episode where her heart rate was 120 while resting, but blood pressure remained normal. - Had an EKG performed about a year ag o by cardiology with normal results. - She denies symptomatic palpitations. - Patient had a yeast infection about a year ago that was treated with Fluconazole. - Start aspirin daily until delivery for preeclampsia prevention due to family history of hypertension - Treat bacterial vaginosis with topical cream (avoid oral tablets) - Schedule fasting 1-hour glucose tolera nce test - Follow-up appointment in 4 weeks, then transition to every 2 weeks thereafter 04/21/25 -?-?-?-?-?-?-?-?-?-?-?-?- 30w 1d 87.203 kg 127/82 occasional cephalic 31 160 active - One-hour glucose tolerance test result of 183 mg/dL, leading to a diagnosis of gestational diabetes. - Patient reports a history of pre-diabe mirella since childhood. - Previously treated with metformin, b ut not currently on any medication. - Prior to , experienced low fasting glucose levels (70s-80s mg/dL) and post-meal spikes (160-180 mg/dL). - Reports active movement, particu larly at night. - Mentions having vaginal discharge. - Notes occasional frothy appearance of urine. - Denies any history of diabetes. - Start low-dose metformin for gestational diabetes management - Provide glucose meter and test strips for blood sugar monitoring - Administer Rhogam shot today - Schedule next appointment in 2 weeks - Plan for A1C and CBC tests at next oren ointment - Prescribe vaginal cream for discharge - Administer Tdap vaccine with Rhogam to day - Recommend flu and RSV vaccines when av ailable - Send [facility] to [facility] [address] 05/03/25 -?-?-?-?-?-?-?-?-?-?-?-?- 31w 6d 86.636 kg 130/84 occasional cephalic 32 145 active - She was started on metformin at the last visit for gestational diabetes management. - Patient reports possible episodes of r eactive hypoglycemia after taking metformin: - Experienced low blood sugar after ta niki medication - Ate cereal to raise glucose levels - Fasting blood glucose levels: - Generally within normal range - Highest reported fasting glucose was 99 mg/dL - Post-prandial glucose: - Reports a 2-hour post-prandial gluco se of 147 mg/dL after eating two chicken sandwiches - Current metformin regimen: - Taking 500 mg once daily - movement: - Patient believes the baby has change d position - Feels increased pressure in upper ab domen - Urinary symptoms: - Reports frequent urination, approxim ately every 1.5 hours - Describes feeling of bladder fullnes s - Experiences sensation of heaviness w hen waking at night - Denies any other significant symptoms or concerns - Hold metformin for a week, then resume taking it with lunch - Monitor for hypoglycemia; if it contin ues, discontinue metformin - Telephone appointment scheduled for xt Thursday to review glucose logs - A1c test ordered, can be done anytime (non-fasting) - Continue monitoring position; ul trasounds to be performed at each visit - Referral for hammer adjuster at the [facility] has been sent and patient has been contacted - Follow-up in-person appointment in 2 w [facility] 05/08/25 -?-?-?-?-?-?-?-?-?-?-?-?- 32w 4d occasional cephalic 34 - María Chaparro is a female presenting for a televisit for glucose logs and A1c results. - She reports her 2-hour glucose was 76 without metformin, having not taken metformin for 2 days. - She continues to have issues with not being hungry early in the morning and inconsistent eating patterns. - She reports a recent episode of fluid on her underwear with a small amount of white discharge. - Describes the discharge as a tiny am ount of white discharge surrounded by a larger grayling of fluid. - Denies any associated cramping. - Episode appears to have been isolated and has stopped. - Discontinue metformin - If vaginal discharge with fluid contin ues, present to labor and delivery for ultrasound and amniotic fluid assessment - Continue consistent eating patterns - Follow up at scheduled in-person appoi ntment next week RASHAAD Calculator Estimated Delivery Date Method Current WG Current Estimate 06/29/25 LMP (Certain) 35w 2d Specific Issue/Plans Rh-. Will need RhoGAM. Notes Visit Date: 05/03/25 Last Updated by: Miguel Amos MD - Ultrasound: - position: Head down, not engaged in lower pelvis Visit Date: 01/04/25 Last Updated by: Sandra Seals ([facility])MD NIPT reviewed with patient and father the baby 46XX Office Meds Rhophylac 1,500 unit (300 mcg)/2 mL injection syringe Performing Provider: Miguel Amos MD Performing Location: [facility] Administered by: Edie Hernandes MA on 04/21/25 11:12 Dose Route Admin Location Dispensed Lot Number Expiration Date Pack age [facility] [employer] Social Worker 1,500 unit IM LEFT DELTOID 2 mL [id number] 03/01/27 28250-446-02 [id number] [employer] Assessment & Plan Diagnosis / Problem List (1) Gestational diabetes mellitus treated with oral hypoglycemic therapy: Status: Acute Plan Problem List - Gestational diabetes mellitus - Pre-diabetes - Vaginal discharge - Frothy urine Assessment Gestational diabetes mellitus diagnosed at 30 weeks and 1 day gestation based on 1-hour glucose tolerance test result of 183 mg/dL. Patient has a history of pre-diabetes since childhood, previously managed with metformin. Current is . heart rate noted at 160 bpm. Patient reports nocturnal movement. Patient mentions vaginal discharge and occasional frothy urine. Blood pressure reported as normal. Rh status requires Rhogam administration. Plan - Start low-dose metformin for gestational diabetes management - Provide glucose meter and test strips for blood sugar monitoring - Administer Rhogam shot today - Schedule next appointment in 2 weeks - Plan for A1C and CBC tests at next appointment - Prescribe vaginal cream for discharge - Administer Tdap vaccine with Rhogam today - Recommend flu and RSV vaccines when available - [facility] [address] [facility]. Progress Reviewed gestational age, growth, and heart rate. Planned frequent visits (every 2 weeks until 36 weeks, then weekly). 2. Instructed patient to monitor movements and report decreases immediately. 3. Testing Counseled on routine third-trimester labs per guidelines. Discussed potential need for ultrasound or monitoring based on risk factors. 4. Preeclampsia Precaution Educated on preeclampsia signs: severe headache, vision changes, right upper quadrant pain, sudden swelling. Advised urgent reporting of symptoms and discussed blood pressure monitoring if high risk. 5. Labor Precautions Reviewed labor signs: regular contractions, pelvic pressure, back pain, bleeding, or fluid leakage. Instructed to seek immediate care for these symptoms. 6. Lifestyle and Delivery Preparation Reinforced vitamins, nutrition, and safe activity. Discussed plan, pain management, and . Advised on labor preparation (e.g., hospital bag) and expectations. 7. Psychosocial Support Assessed emotional well-being and offered resources for mental health or parenting support.
== END 2025-04-21 10:36 | disposition home or self-care (01) ==
LOC: HODSOBC 09:47
PROVIDERS: PCP Physician Assistant; Referring Provider Physician Assistant; Supervising Provider Obstetrics & Gynecology; Visit Provider Obstetrics & Gynecology
DX: O09.893 Supervision of other high risk pregnancies, third trimester (principal); O24.415 Gestational diabetes mellitus in pregnancy, controlled by oral hypoglycemic drugs; O99.891 Other specified diseases and conditions complicating pregnancy; N89.8 Other specified noninflammatory disorders of vagina; O26.893 Other specified pregnancy related conditions, third trimester; Z67.41 Type O blood, Rh negative; Z3A.30 30 weeks gestation of pregnancy
CPT/HCPCS: 96372; 99214; J3490; G0463; J2791

== ENCOUNTER 2025-05-03 11:30 | Outpatient (AMB) | payer BC, SELFPAY ==
[2025-05-03 11:36] VITALS: BP 130/84; PULSE 93; RESP 18; TEMP 36.6; O2SAT 98; BMI 31.8
--- NOTE | 2025-05-03 11:36 | OBCLNT_ITS ---
Vital Signs 05/03/25 11:36 Height 1.65 m Height Method Stated Weight 86.636 kg Weight Measurement Method Standing Scale BMI 31.8 BP 130/84 Blood Pressure Source Automatic Cuff Blood Pressure Location Left Upper Arm Position Sitting Respiration 18 Pulse 93 Pulse Source Monitor Temp 98 F Temp Source Oral Pulse Oximetry (%) 98 Oxygen Delivery Method Room Air Allergies/Home Meds Allergies & Medications Allergies No Known Allergies Allergy (Verified 05/03/25 11:38) Medication Reconciliation vits no.126-ferrous fum 28 mg iron-folic acid 800 mcg tablet (Classic ) tab PO 12/06/24 [History Confirmed 05/03/25] aspirin 81 mg tablet 81 mg PO QDAY 90 days #90 tabs 03/15/25 [Rx Confirmed 05/03/25] blood sugar diagnostic (Blood Glucose Test strips) #100 ea 04/21/25 [Rx Confi rmed 05/03/25] blood-glucose meter #1 ea 04/21/25 [Rx Confirmed 05/03/25] lancets 21 gauge #100 ea 04/21/25 [Rx Confirmed 05/03/25] metformin 500 mg tablet 500 mg PO QDAY 90 days #90 tabs 04/21/25 [Rx Confirmed 05/03/25] Intake Visit Data Collection New Patient or Established: Established Patient (seen at [facility] within 3 years) Reason for Visit:: CARE Seen by Clinical Staff ONLY (RN/MA): No Geriatric Physical Therapist Required: No Do You Feel Safe at Home: Yes Authorities Contacted: N/A PCP or OBGYN visit in last 3 months: Yes Hx Now: Yes Are you currently on any form of Control: No Pain Present Currently: No Pain Scale Used: Maya-Hall/Numerical Pain scale:: 0 Smoking Status Smoking Status: Never smoker Questionnaires Covid-19 Vaccine Questionnaire Has patient been vacinated for Covid-19 Have you been vacinated for Covid-19: Yes PHQ-9 PHQ-2 Over the last 2 weeks, how often have you been bothered by any of the following problems? 1. Little interest or pleasure in doing things: not at all 2. Feeling down, depressed, or hopeless: not at all Total score: 0 PHQ-9 3. Trouble falling or staying asleep, or sleeping too much: Not at all 4. Feeling tired or having little energy: Not at all 5. Poor appetite or overeating: Not at all 6. Feeling bad about yourself - or that you are a failure or have let yourself or your family down: Not at all 7. Trouble concentrating on things, such as reading the newspaper or watching television: Not at all 8. Moving or speaking so slowly that other people could have noticed? - Or the opposite - being so fidgety or restless that you have been moving around a lot more than usual: not at all 9. Thoughts that you would be better off or of hurting yourself in some way: Not at all Total score: 0 Source: Developed by Drs. Brian Gamble, Marsha Calle, Nayan Regan and colleagues, with an educational rayray from [employer]. Depression screen completed yes Social History Living Situation History Lives With: Family Housing: House Tobacco History Smoking Status: Never smoker Alcohol History Alcohol Intake: Never Domestic Abuse History Do You Feel Safe at Home: Yes Care OB Visit Log OB Flowsheet Initial Weight: Not Recorded Date -?-?-?-?-?-?-?-?-?-?-?-?- EGA Weight BP Alb Glu CTX Pres Fundal ht FHR Mov Dilation Station Effacement Hx Notes Visit Note 11/21/24 -?-?-?-?-?-?-?-?-?-?-?-?- 8w 4d 84.028 kg 127/84 165 21-year-old , presents for her first visit. experiencing mild nausea but denies vomi ting. She also notes breast tenderness. Uterine fibroids, diagnosed via ultrasou nd in November 2023. - Ultrasound (ThuNov 21 2024): - Gestational sac visualized - heart rate: 165 bpm - Fibroid noted outside of s ac. - Perform initial lab tests - Schedule NIPT (non-invasive t esting) at 9 weeks gestation for genetic screening and optional sex determination - Schedule 12-week ultrasound for offici al dating and anatomical survey - Schedule 20-week ultrasound for detail ed anatomical survey - Follow-up appointment in 7-10 days to review lab results and repeat ultrasound 12/06/24 -?-?-?-?-?-?-?-?-?-?-?-?- 10w 5d 83.461 kg 134/87 165 No CTX/LOF/VB. Reports good FM. No TRINH/VS, Epig/RUQ pain. Nausea peaked around 9w and has now subs ided. Denies vomiting or other concerns. Ultrasound: FHR 165 bpm. head, bod y, limbs visualized. Labs: Blood type O Rh-negative, Ab scree n negative, TSH 0.53. UA: epithelial cells present. STI panel and infectious labs negative. Rubella immune, varicella IgG positive. NIPT pending. Assessment & Plan: 10w5d IUP, reassuring findings, resolved early symptoms. Rh-negative. Schedule NT scan at [place] Provide [facility] form for NIPT Mine Safety Manager on Rhogam if any bleeding occurs Continue routine care Reviewed labor signs and routine counseling No CTX/LOF/VB. Reports good FM. No TRINH/VS, Epig/RUQ pain. Nausea peaked around 9w and has now subs ided. Denies vomiting or other concerns. Ultrasound: FHR 165 bpm. head, bod y, limbs visualized. Labs: Blood type O Rh-negative, Ab scree n negative, TSH 0.53. UA: epithelial cells present. STI panel and infectious labs negative. Rubella immune, varicella IgG positive. NIPT pending. Assessment & Plan: 10w5d IUP, reassuring findings, resolved early symptoms. Rh-negative. Schedule NT scan at [place] Provide [facility] form for NIPT Mine Safety Manager on Rhogam if any bleeding occurs Continue routine care Reviewed labor signs and routine counseling. Laboratory, Imaging, and Diagnostic Test Results - Date: 11/21/2024 - Blood group: O negative - Antibody screen: Negative - TSH: 0.53 - Urinalysis: Squamous epithelial cell s present, otherwise within normal limits - Syphilis serology: Negative - Gonorrhea: Negative - Chlamydia: Negative - Hepatitis B: Negative - Hepatitis C: Negative - HIV 1 and 2: Negative - Rubella: Immune - Trichomonas: Negative - Varicella zoster antibody: Positive - Ultrasound (12/06/2024): - Gestational age: 10 weeks 2 days - heart rate: 165 bpm - anatomy: Head, body, hands, and legs visualized 01/04/25 -?-?-?-?-?-?-?-?-?-?-?-?- 14w 6d 83.064 kg 124/84 140 No movement no bleeding no contractions 02/01/25 -?-?-?-?-?-?-?-?-?-?-?-?- 18w 6d 83.121 kg 120/84 142 active at 18w6d, RASHAAD 06/29/25. Denies TRINH/VC/epigastric pain. Starting to feel FM ( flickers ) on right side. Hx elevated HR, followed by cardiology. Family hx HTN (father). FHR 142, cephalic presentation. US shows normal anatomy, female fetus. Genetics negative. Anatomy scan next week at [facility], FU ~24w with glucose screening, routine care. 05/03/25 -?-?-?-?-?-?-?-?-?-?-?-?- 31w 6d 86.636 kg 130/84 occasional cephalic 32 145 active - She was started on metformin at the last visit for gestational diabetes management. - Patient reports possible episodes of r eactive hypoglycemia after taking metformin: - Experienced low blood sugar after ta niik medication - Ate cereal to raise glucose levels - Fasting blood glucose levels: - Generally within normal range - Highest reported fasting glucose was 99 mg/dL - Post-prandial glucose: - Reports a 2-hour post-prandial gluco se of 147 mg/dL after eating two chicken sandwiches - Current metformin regimen: - Taking 500 mg once daily - movement: - Patient believes the baby has change d position - Feels increased pressure in upper ab domen - Urinary symptoms: - Reports frequent urination, approxim ately every 1.5 hours - Describes feeling of bladder fullnes s - Experiences sensation of heaviness w hen waking at night - Denies any other significant symptoms or concerns - Hold metformin for a week, then resume taking it with lunch - Monitor for hypoglycemia; if it contin ues, discontinue metformin - Telephone appointment scheduled for ne xt Thursday to review glucose logs - A1c test ordered, can be done anytime (non-fasting) - Continue monitoring position; ul trasounds to be performed at each visit - Referral for strategic marketing specialist at the [facility] has been sent and patient has been contacted - Follow-up in-person appointment in 2 w jack RASHAAD Calculator Estimated Delivery Date Method Current WG Current Estimate 06/29/25 LMP (Certain) 32w 0d Specific Issue/Plans Rh-. Will need RhoGAM. Notes Visit Date: 05/03/25 Last Updated by: Miguel Amos MD - Ultrasound: - position: Head down, not engaged in lower pelvis Visit Date: 01/04/25 Last Updated by: Sandra Seals (OB Clinic)MD NIPT reviewed with patient and father the baby 46XX Office Procedures OBC Clinic LOC & Office Proc's Nursing/Assessment Patient Status: Established Patient OB Clinic Nursing Assessment: Medication Reconciliation, Update PMH in EMR and Vital Signs OB Clinic Coordination of Care: Complex Care and Chronic Disease 1-5, Consent,records obtained, informed consent, Education Simp Pt/Fam, 1 Ins Authorization, Lab and Imaging orders, Results/Orders obtained and Staff clarify orders Special Needs: Heart tones Established Patient Charge Established Patient Point Assignment: 150 Established Patient Point Charge: EP Level 4 (120-155) Assessment & Plan Diagnosis / Problem List (1) Gestational diabetes mellitus treated with oral hypoglycemic therapy: Status: Acute Plan Problem List - Gestational diabetes mellitus - Breech presentation, resolved Assessment at 31 weeks and 6 days gestation presenting for follow-up. Patient reports possible episodes of reactive hypoglycemia after starting metformin 500 mg daily. Fasting glucose levels have been within normal range, with a highest reported value of 99 mg/dL. Two-hour postprandial glucose was 147 mg/dL after a meal. position has changed to cephalic presentation, confirmed by physical examination, though the head is not yet engaged in the lower pelvis. Patient reports increased urinary frequency and nocturnal pressure sensations, likely due to head position on the bladder. Plan - Hold metformin for a week, then resume taking it with lunch - Monitor for hypoglycemia; if it continues, discontinue metformin - Telephone appointment scheduled for next Thursday to review glucose logs - A1c test ordered, can be done anytime (non-fasting) - Continue monitoring position; ultrasounds to be performed at each visit - Referral for strategic marketing specialist at the hospital has been sent and patient has been contacted - Follow-up in-person appointment in 2 weeks 1. Progress Reviewed gestational age, growth, and heart rate. Planned frequent visits (every 2 weeks until 36 weeks, then weekly). 2. Instructed patient to monitor movements and report decreases immediately. 3. Testing Counseled on routine third-trimester labs per guidelines. Discussed potential need for ultrasound or monitoring based on risk factors. 4. Preeclampsia Precaution Educated on preeclampsia signs: severe headache, vision changes, right upper quadrant pain, sudden swelling. Advised urgent reporting of symptoms and discussed blood pressure monitoring if high risk. 5. Labor Precautions Reviewed labor signs: regular contractions, pelvic pressure, back pain, bleeding, or fluid leakage. Instructed to seek immediate care for these symptoms. 6. Lifestyle and Delivery Preparation Reinforced vitamins, nutrition, and safe activity. Discussed plan, pain management, and . Advised on labor preparation (e.g., hospital bag) and expectations. 7. Psychosocial Support Assessed emotional well-being and offered resources for mental health or parenting support.
== END 2025-05-03 11:53 | disposition home or self-care (01) ==
PROVIDERS: PCP Physician Assistant; Referring Provider Physician Assistant; Supervising Provider Obstetrics & Gynecology; Visit Provider Obstetrics & Gynecology
DX: O09.893 Supervision of other high risk pregnancies, third trimester (principal); O24.415 Gestational diabetes mellitus in pregnancy, controlled by oral hypoglycemic drugs; Z3A.31 31 weeks gestation of pregnancy; Z79.82 Long term (current) use of aspirin; Z79.899 Other long term (current) drug therapy
CPT/HCPCS: 99214; G0463

== ENCOUNTER → 2025-05-03 | Outpatient (CLI) | payer BC, SELFPAY ==
[2025-05-03 16:57] LABS: Glucose Estimated Average 108 mg/dL (80-131); Hemoglobin A1C 5.4 % Hgb (4.8-6.0)
== END | disposition home or self-care (01) ==
LOC: COPL 14:31
PROVIDERS: PCP Physician Assistant; Referring Provider Obstetrics & Gynecology; Visit Provider Obstetrics & Gynecology
DX: O24.415 Gestational diabetes mellitus in pregnancy, controlled by oral hypoglycemic drugs (principal); Z3A.00 Weeks of gestation of pregnancy not specified
CPT/HCPCS: 36415; 83036

== ENCOUNTER 2025-05-08 13:38 | Outpatient (AMB) | payer BC, SELFPAY ==
--- NOTE | 2025-05-08 13:46 | OBCLNT_ITS ---
Allergies/Home Meds Allergies & Medications Allergies No Known Allergies Allergy (Verified 05/08/25 13:46) Medication Reconciliation vits no.126-ferrous fum 28 mg iron-folic acid 800 mcg tablet (Classic ) tab PO 12/06/24 [History Confirmed 05/08/25] aspirin 81 mg tablet 81 mg PO QDAY 90 days #90 tabs 03/15/25 [Rx Confirmed 05/08/25] blood sugar diagnostic (Blood Glucose Test strips) #100 ea 04/21/25 [Rx Confirmed 05/08/25] blood-glucose meter #1 ea 04/21/25 [Rx Confirmed 05/08/25] lancets 21 gauge #100 ea 04/21/25 [Rx Confirmed 05/08/25] metformin 500 mg tablet 500 mg PO QDAY 90 days #90 tabs 04/21/25 [Rx Confirmed 05/08/25] Intake Visit Data Collection New Patient or Established: Established Patient (seen at [facility] within 3 years) Reason for Visit:: LAB RESULTS Consent obtained for Telemed Visit: Yes Seen by Clinical Staff ONLY (RN/MA): No Facility Specialist Required: No Do You Feel Safe at Home: Yes Authorities Contacted: N/A PCP or OBGYN visit in last 3 months: Yes Date of Last PCP or OBGYN visit: 04/21/25 Hx Now: Yes Are you currently on any form of Control: No Pain Present Currently: No Pain Scale Used: Maya-Hall/Numerical Pain scale:: 0 Smoking Status Smoking Status: Never smoker For Telemed visit only Telemed Video/Phone Visit: Yes Verbal consent obtained for Telemed visit?: Yes Verbal Consent witness name: NICOLAS BARRON / DIONI GASTON Questionnaires Covid-19 Vaccine Questionnaire Has patient been vacinated for Covid-19 Have you been vacinated for Covid-19: Yes PHQ-9 PHQ-2 Over the last 2 weeks, how often have you been bothered by any of the following problems? 1. Little interest or pleasure in doing things: not at all 2. Feeling down, depressed, or hopeless: not at all Total score: 0 PHQ-9 3. Trouble falling or staying asleep, or sleeping too much: Not at all 4. Feeling tired or having little energy: Not at all 5. Poor appetite or overeating: Not at all 6. Feeling bad about yourself - or that you are a failure or have let yourself or your family down: Not at all 7. Trouble concentrating on things, such as reading the newspaper or watching television: Not at all 8. Moving or speaking so slowly that other people could have noticed? - Or the opposite - being so fidgety or restless that you have been moving around a lot more than usual: not at all 9. Thoughts that you would be better off or of hurting yourself in some way: Not at all Total score: 0 If you checked off any problems, how difficult have these problems made it for you to do your work, take care of things at home, or get along with other people?: not difficult at all Source: Developed by Drs. Brian Gamble, Marsha Calle, Nayan Regan and colleagues, with an educational rayray from [employer]. Depression screen completed yes Social History Living Situation History Lives With: Family Housing: House Tobacco History Smoking Status: Never smoker Alcohol History Alcohol Intake: Never Domestic Abuse History Do You Feel Safe at Home: Yes Care OB Visit Log OB Flowsheet Initial Weight: Not Recorded Date -?-?-?-?-?-?-?-?-?-?-?-?- EGA Weight BP Alb Glu CTX Pres Fundal ht FHR Mov Dilation Station Effacement Hx Notes Visit Note 11/21/24 -?-?-?-?-?-?-?-?-?-?-?-?- 8w 4d 84.028 kg 127/84 165 21-year-old , presents for her first visit. experiencing mild nausea but denies vomi ting. She also notes breast tenderness. Uterine fibroids, diagnosed via ultrasou nd in November 2023. - Ultrasound (ThuNov 21 2024): - Gestational sac visualized - heart rate: 165 bpm - Fibroid noted outside of s ac. - Perform initial lab tests - Schedule NIPT (non-invasive t esting) at 9 weeks gestation for genetic screening and optional sex determination - Schedule 12-week ultrasound for offici al dating and anatomical survey - Schedule 20-week ultrasound for detail ed anatomical survey - Follow-up appointment in 7-10 days to review lab results and repeat ultrasound 12/06/24 -?-?-?-?-?-?-?-?-?-?-?-?- 10w 5d 83.461 kg 134/87 165 No CTX/LOF/VB. Reports good FM. No TRINH/VS, Epig/RUQ pain. Nausea peaked around 9w and has now subs ided. Denies vomiting or other concerns. Ultrasound: FHR 165 bpm. head, bod y, limbs visualized. Labs: Blood type O Rh-negative, Ab scree n negative, TSH 0.53. UA: epithelial cells present. STI panel and infectious labs negative. Rubella immune, varicella IgG positive. NIPT pending. Assessment & Plan: 10w5d IUP, reassuring findings, resolved early symptoms. Rh-negative. Schedule NT scan at [place] Provide [facility] form for NIPT Rim Fire Charger Operator on Rhogam if any bleeding occurs Continue routine care Reviewed labor signs and routine counseling No CTX/LOF/VB. Reports good FM. No TRINH/VS, Epig/RUQ pain. Nausea peaked around 9w and has now subs ided. Denies vomiting or other concerns. Ultrasound: FHR 165 bpm. head, bod y, limbs visualized. Labs: Blood type O Rh-negative, Ab scree n negative, TSH 0.53. UA: epithelial cells present. STI panel and infectious labs negative. Rubella immune, varicella IgG positive. NIPT pending. Assessment & Plan: 10w5d IUP, reassuring findings, resolved early symptoms. Rh-negative. Schedule NT scan at [place] Provide [facility] form for NIPT Rim Fire Charger Operator on Rhogam if any bleeding occurs Continue routine care Reviewed labor signs and routine counseling. Laboratory, Imaging, and Diagnostic Test Results - Date: 11/21/2024 - Blood group: O negative - Antibody screen: Negative - TSH: 0.53 - Urinalysis: Squamous epithelial cell s present, otherwise within normal limits - Syphilis serology: Negative - Gonorrhea: Negative - Chlamydia: Negative - Hepatitis B: Negative - Hepatitis C: Negative - HIV 1 and 2: Negative - Rubella: Immune - Trichomonas: Negative - Varicella zoster antibody: Positive - Ultrasound (12/06/2024): - Gestational age: 10 weeks 2 days - heart rate: 165 bpm - anatomy: Head, body, hands, and legs visualized 01/04/25 -?-?-?-?-?-?-?-?-?-?-?-?- 14w 6d 83.064 kg 124/84 140 No movement no bleeding no contractions 02/01/25 -?--?-?-?-?-?-?-?-?-?-?-?- 18w 6d 83.121 kg 120/84 142 active at 18w6d, RASHAAD 06/29/25. Denies TRINH/VC/epigastric pain. Starting to feel FM ( flickers ) on right side. Hx elevated HR, followed by cardiology. Family hx HTN (father). FHR 142, cephalic presentation. US shows normal anatomy, female fetus. Genetics negative. Anatomy scan next week at [facility] ~24w with glucose screening, routine care. 05/03/25 -?-?-?-?-?-?-?-?-?-?-?-?- 31w 6d 86.636 kg 130/84 RASHAAD Calculator Estimated Delivery Date Method Current WG Current Estimate 06/29/25 LMP (Certain) 32w 4d Specific Issue/Plans Rh-. Will need RhoGAM. Notes Visit Date: 05/03/25 Last Updated by: Miguel Amos MD - Ultrasound: - position: Head down, not engaged in lower pelvis Visit Date: 01/04/25 Last Updated by: Sandra Seals (OB Clinic)MD NIPT reviewed with patient and father the baby 46XX Office Procedures OBC Clinic LOC & Office Proc's Nursing/Assessment Patient Status: Established Patient OB Clinic Nursing Assessment: Medication Reconciliation and Update PMH in EMR OB Clinic Coordination of Care: Education Complex Pt/Fam, Consent,records obtained, informed consent, Lab and Imaging orders, Results/Orders obtained and Staff clarify orders Established Patient Charge Established Patient Point Assignment: 70 Telehealth If patient is seen using Teleconference methods, complete New/Est section, but DO NOT daynell points only danyell the correct Telemed visit type Telemed Phone/Video with patient at home & ,PA,CORE COMPOSER FEEDER: Yes Telemed Phone/Video with patient in Clinic w/,CORE COMPOSER FEEDER,PA outside Clinic: Yes Assessment & Plan Diagnosis / Problem List (1) Gestational diabetes mellitus treated with oral hypoglycemic therapy: Status: Acute Plan Problem List - Prediabetes - Vaginal discharge Assessment The patient presents with well-controlled glucose levels, with an A1c of 5.4 in the prediabetic range and a 2-hour postprandial glucose of 76 mg/dL without metformin. She reports a single episode of minimal white vaginal discharge accompanied by a larger [place] of fluid on her underwear without associated cramping, which has since resolved. Plan - Discontinue metformin - If vaginal discharge with fluid continues, present to labor and delivery for ultrasound and amniotic fluid assessment - Continue consistent eating patterns - Follow up at scheduled in-person appointment next week
== END 2025-05-08 13:50 | disposition home or self-care (01) ==
PROVIDERS: Supervising Provider Obstetrics & Gynecology; Visit Provider Obstetrics & Gynecology
DX: O09.893 Supervision of other high risk pregnancies, third trimester (principal); O24.415 Gestational diabetes mellitus in pregnancy, controlled by oral hypoglycemic drugs; Z67.41 Type O blood, Rh negative; Z3A.32 32 weeks gestation of pregnancy
CPT/HCPCS: 99212; Q3014; G0463

== ENCOUNTER 2025-05-19 11:26 | Outpatient (AMB) | payer BC, SELFPAY ==
[2025-05-19 11:36] VITALS: BP 128/84; PULSE 101; RESP 18; TEMP 36.5; O2SAT 98; BMI 31.9
--- NOTE | 2025-05-19 11:36 | OBCLNT_ITS ---
Vital Signs 05/19/25 11:36 Height 1.65 m Height Method Stated Weight 87.09 kg Weight Measurement Method Standing Scale BMI 31.9 BP 128/84 Blood Pressure Source Automatic Cuff Blood Pressure Location Left Upper Arm Position Sitting Respiration 18 Pulse 101 H Pulse Source Monitor Temp 97.7 F Temp Source Oral Pulse Oximetry (%) 98 Oxygen Delivery Method Room Air Allergies/Home Meds Allergies & Medications Allergies No Known Allergies Allergy (Verified 06/22/25 13:49) Medication Reconciliation vits no.126-ferrous fum 28 mg iron-folic acid 800 mcg tablet (Classic ) tab PO 12/06/24 [History Confirmed 06/22/25] aspirin 81 mg tablet 81 mg PO QDAY 90 days #90 tabs 03/15/25 [Rx Confirmed 06/22/25] blood sugar diagnostic (Blood Glucose Test strips) #100 ea 04/21/25 [Rx C onfirmed 06/22/25] blood-glucose meter #1 ea 04/21/25 [Rx Confirmed 06/22/25] lancets 21 gauge #100 ea 04/21/25 [Rx Confirmed 06/22/25] metformin 500 mg tablet 500 mg PO QDAY 90 days #90 tabs 04/21/25 [Rx Confirmed 06/22/25] Intake Visit Data Collection New Patient or Established: Established Patient (seen at [facility] within 3 years) Reason for Visit:: CARE Seen by Clinical Staff ONLY (RN/MA): No Teacher Of The Sight Impaired Required: No Do You Feel Safe at Home: Yes Authorities Contacted: N/A PCP or OBGYN visit in last 3 months: Yes Hx Now: Yes Are you currently on any form of Control: No Pain Present Currently: No Pain Scale Used: Maya-Hall/Numerical Pain scale:: 0 Smoking Status Smoking Status: Never smoker Questionnaires Covid-19 Vaccine Questionnaire Has patient been vacinated for Covid-19 Have you been vacinated for Covid-19: Yes PHQ-9 PHQ-2 Over the last 2 weeks, how often have you been bothered by any of the following problems? 1. Little interest or pleasure in doing things: not at all 2. Feeling down, depressed, or hopeless: not at all Total score: 0 PHQ-9 3. Trouble falling or staying asleep, or sleeping too much: Not at all 4. Feeling tired or having little energy: Not at all 5. Poor appetite or overeating: Not at all 6. Feeling bad about yourself - or that you are a failure or have let yourself or your family down: Not at all 7. Trouble concentrating on things, such as reading the newspaper or watching television: Not at all 8. Moving or speaking so slowly that other people could have noticed? - Or the opposite - being so fidgety or restless that you have been moving around a lot more than usual: not at all 9. Thoughts that you would be better off or of hurting yourself in some way: Not at all Total score: 0 Source: Developed by Drs. Brian Gamble, Marsha Calle, Nayan Regan and colleagues, with an educational rayray from [employer]. Depression screen completed yes Social History Living Situation History Lives With: Family Housing: House Tobacco History Smoking Status: Never smoker Alcohol History Alcohol Intake: Never Domestic Abuse History Do You Feel Safe at Home: Yes Care OB Visit Log OB Flowsheet Initial Weight: Not Recorded Date -?-?-?-?-?-?-?-?-?-?-?-?- EGA Weight BP Alb Glu CTX Pres Fundal ht FHR Mov Dilation Station Effacement Hx Notes Visit Note 11/21/24 -?-?-?-?-?-?-?-?-?-?-?-?- 8w 4d 84.028 kg 127/84 165 21-year-old , presents for her first visit. experiencing mild nausea but denies vomi ting. She also notes breast tenderness. Uterine fibroids, diagnosed via ultrasou nd in November 2023. - Ultrasound (ThuNov 21 2024): - Gestational sac visualized - heart rate: 165 bpm - Fibroid noted outside of s ac. - Perform initial lab tests - Schedule NIPT (non-invasive t esting) at 9 weeks gestation for genetic screening and optional sex determination - Schedule 12-week ultrasound for offici al dating and anatomical survey - Schedule 20-week ultrasound for detail ed anatomical survey - Follow-up appointment in 7-10 days to review lab results and repeat ultrasound 12/06/24 -?-?-?-?-?-?-?-?-?-?-?-?- 10w 5d 83.461 kg 134/87 165 No CTX/LOF/VB. Reports good FM. No TRINH/VS, Epig/RUQ pain. Nausea peaked around 9w and has now subs ided. Denies vomiting or other concerns. Ultrasound: FHR 165 bpm. head, bod y, limbs visualized. Labs: Blood type O Rh-negative, Ab scree n negative, TSH 0.53. UA: epithelial cells present. STI panel and infectious labs negative. Rubella immune, varicella IgG positive. NIPT pending. Assessment & Plan: 10w5d IUP, reassuring findings, resolved early symptoms. Rh-negative. Schedule NT scan at [place] Provide [facility] form for NIPT Mainframe Systems Administrator on Rhogam if any bleeding occurs Continue routine care Reviewed labor signs and routine counseling No CTX/LOF/VB. Reports good FM. No TRINH/VS, Epig/RUQ pain. Nausea peaked around 9w and has now subs ided. Denies vomiting or other concerns. Ultrasound: FHR 165 bpm. head, bod y, limbs visualized. Labs: Blood type O Rh-negative, Ab scree n negative, TSH 0.53. UA: epithelial cells present. STI panel and infectious labs negative. Rubella immune, varicella IgG positive. NIPT pending. Assessment & Plan: 10w5d IUP, reassuring findings, resolved early symptoms. Rh-negative. Schedule NT scan at [place] Provide [facility] form for NIPT Mainframe Systems Administrator on Rhogam if any bleeding occurs Continue routine care Reviewed labor signs and routine counseling. Laboratory, Imaging, and Diagnostic Test Results - Date: 11/21/2024 - Blood group: O negative - Antibody screen: Negative - TSH: 0.53 - Urinalysis: Squamous epithelial cell s present, otherwise within normal limits - Syphilis serology: Negative - Gonorrhea: Negative - Chlamydia: Negative - Hepatitis B: Negative - Hepatitis C: Negative - HIV 1 and 2: Negative - Rubella: Immune - Trichomonas: Negative - Varicella zoster antibody: Positive - Ultrasound (12/06/2024): - Gestational age: 10 weeks 2 days - heart rate: 165 bpm - anatomy: Head, body, hands, and legs visualized 01/04/25 -?-?-?-?-?-?-?-?-?-?-?-?- 14w 6d 83.064 kg 124/84 140 No movement no bleeding no contractions 02/01/25 -?-?-?-?-?-?-?-?-?-?-?-?- 18w 6d 83.121 kg 120/84 142 active at 18w6d, RASHAAD 06/29/25. Denies TRINH/VC/epigastric pain. Starting to feel FM ( flickers ) on right side. Hx elevated HR, followed by cardiology. Family hx HTN (father). FHR 142, cephalic presentation. US shows normal anatomy, female fetus. Genetics negative. Anatomy scan next week at [facility] ~24w with glucose screening, routine care. 03/15/25 -?-?-?-?-?-?-?-?-?-?-?-?- 24w 6d 84.368 kg 125/84 04/21/25 -?-?-?-?-?-?-?-?-?-?-?-?- 30w 1d 87.203 kg 127/82 05/03/25 -?-?-?-?-?-?-?-?-?-?-?-?- 31w 6d 86.636 kg 130/84 05/08/25 -?-?-?-?-?-?-?-?-?-?-?-?- 32w 4d 05/19/25 -?-?-?-?-?-?-?-?-?-?-?-?- 34w 1d 87.09 kg 128/84 06/01/25 -?-?-?-?-?-?-?-?-?-?-?-?- 36w 0d 88.564 kg 134/80 06/08/25 -?-?-?-?-?-?-?-?-?-?-?-?- 37w 0d 89.868 kg 122/85 06/22/25 -?-?-?-?-?-?--?-?-?-?-?-?- 39w 0d 89.584 kg 123/83 RASHAAD Calculator Estimated Delivery Date Method Current WG Current Estimate 11/20/25 LMP (Certain) 39w 2d Specific Issue/Plans Rh-. Will need RhoGAM. Notes Visit Date: 05/03/25 Last Updated by: Miguel Amos MD - Ultrasound: - position: Head down, not engaged in lower pelvis Visit Date: 01/04/25 Last Updated by: Sandra Seals (OB Clinic)MD NIPT reviewed with patient and father the baby 46XX Office Procedures [facility] Clinic LOC & Office Proc's Nursing/Assessment Patient Status: Established Patient OB Clinic Nursing Assessment: Medication Reconciliation, Update PMH in EMR and Vital Signs OB Clinic Coordination of Care: Complex Care and Chronic Disease 1-5, Consent,records obtained, informed consent, Education Simp Pt/Fam, Lab and Imaging orders, Results/Orders obtained and Staff clarify orders Special Needs: Heart tones Established Patient Charge Established Patient Point Assignment: 135 Established Patient Point Charge: EP Level 4 (120-155) Injection/Vaccine Admin SQ Im Injection: Yes Immunizations diphth,pertus(acell),tetanus 2.5 Lf unit-8 mcg-5 Lf/0.5mL IM syringe Performing Provider: Miguel Amos MD Performing Location: [facility] Administered by: Edie Hernandes MA on 05/19/25 12:04 Dose Route Admin Location Dispensed Lot Number Expiration Date Pack age [facility] [employer] Rags 0.5 mL IM Left Deltoid 0.5 mL [id number] 07/07/27 28076-076-41 [id number] [employer] VIS Given Date VIS Provided VIS Publication Date 05/19/25 Single Vaccine 24 Eligibility Eligibility Date Funding Source Public Non-[facility] Assessment & Plan Diagnosis / Problem List (1) Gestational diabetes mellitus treated with oral hypoglycemic therapy: Status: Acute (2) Supervision of high risk , unspecified, third trimester: Status: Acute Plan Problem List - , single intrauterine - Gestational age 34 weeks 1 day Assessment at 34 weeks 1 day gestation, presenting for routine visit. Recent ultrasound at [facility] on 05/17/2025 showed single fetus at 33 weeks 6 days, cephalic presentation, with estimated weight of 2466 grams (5 pounds 7 ounces), 66th percentile. Amniotic fluid index normal at 14.6, posterior placenta without periphery. activity reported as normal. Patient denies co ntractions or other issues. Maternal vital signs stable with heart rate of 145 bpm. Patient is Rh-negative, received RhoGAM at 28 weeks. Currently working without complications. Plan - Administer Tdap vaccine today - Patient to obtain flu shot and RSV vaccine at pharmacy (can be given together) - Continue weekly visits, next appointment in 2 weeks - Plan for patient to work until 37 weeks gestation - Provider to personally measure amniotic fluid index at next Thursday's appointment 1. Progress Reviewed gestational age (34 weeks 1 day), growth (EFW 2466 grams, 66th p ercentile), and heart rate. Planned frequent visits (every 2 weeks until 36 weeks, then weekly). 2. Instructed patient to monitor movements and report decreases immediately. 3. Testing Counseled on routine third-trimester labs per guidelines. Discussed potential need for ultrasound or monitoring based on risk factors. 4. Preeclampsia Precaution Educated on preeclampsia signs: severe headache, vision changes, right upper quadrant pain, sudden swelling. Advised urgent reporting of symptoms and discussed blood pressure monitoring if high risk. 5. Labor Precautions Reviewed labor signs: regular contractions, pelvic pressure, back pain, bleeding, or fluid leakage. Instructed to seek immediate care for these symptoms. 6. Lifestyle and Delivery Preparation Reinforced vitamins, nutrition, and safe activity. Discussed plan, pain management, and . Advised on labor preparation (e.g., hospital bag) and expectations. 7. Psychosocial Support Assessed emotional well-being and offered resources for mental health or parenting support.
== END 2025-05-19 11:53 | disposition home or self-care (01) ==
LOC: HODSOBC 11:26
PROVIDERS: Supervising Provider Obstetrics & Gynecology; Visit Provider Obstetrics & Gynecology
DX: O09.893 Supervision of other high risk pregnancies, third trimester (principal); O24.415 Gestational diabetes mellitus in pregnancy, controlled by oral hypoglycemic drugs; Z3A.34 34 weeks gestation of pregnancy; Z67.31 Type AB blood, Rh negative; Z23 Encounter for immunization
CPT/HCPCS: 90471; 90715; 96372; 99214; G0463

== ENCOUNTER 2025-06-01 09:59 | Outpatient (AMB) | payer BC, SELFPAY ==
--- NOTE | 2025-06-01 10:16 | OBCLNT_ITS ---
Vital Signs 06/01/25 10:17 Height 1.65 m Height Method Stated Weight 88.564 kg Weight Measurement Method Standing Scale BMI 32.5 BP 134/80 H Blood Pressure Source Automatic Cuff Blood Pressure Location Left Upper Arm Position Sitting Respiration 18 Pulse 90 Pulse Source Monitor Temp 97.2 F Temp Source Oral Pulse Oximetry (%) 97 Oxygen Delivery Method Room Air Allergies/Home Meds Allergies & Medications Allergies No Known Allergies Allergy (Verified 06/01/25 10:17) Medication Reconciliation vits no.126-ferrous fum 28 mg iron-folic acid 800 mcg tablet (Classic ) tab PO 12/06/24 [History Confirmed 06/01/25] aspirin 81 mg tablet 81 mg PO QDAY 90 days #90 tabs 03/15/25 [Rx Confirmed 06/01/25] blood sugar diagnostic (Blood Glucose Test strips) #100 ea 04/21/25 [Rx C onfirmed 06/01/25] blood-glucose meter #1 ea 04/21/25 [Rx Confirmed 06/01/25] lancets 21 gauge #100 ea 04/21/25 [Rx Confirmed 06/01/25] metformin 500 mg tablet 500 mg PO QDAY 90 days #90 tabs 04/21/25 [Rx Confirmed 06/01/25] Intake Visit Data Collection New Patient or Established: Established Patient (seen at [facility] within 3 years) Reason for Visit:: OBC Seen by Clinical Staff ONLY (RN/MA): No Legal Secretary Receptionist Required: No Do You Feel Safe at Home: Yes Authorities Contacted: N/A PCP or OBGYN visit in last 3 months: Yes Date of Last PCP or OBGYN visit: 05/31/25 Hx Now: Yes Are you currently on any form of Control: No Pain Present Currently: No Pain Scale Used: Maya-Hall/Numerical Pain scale:: 0 Smoking Status Smoking Status: Never smoker Immunizations Flu Vaccine in the Last 12 Months: No Flu Vaccine Exclusion Criteria: No Exclusion Criteria Questionnaires Covid-19 Vaccine Questionnaire Has patient been vacinated for Covid-19 Have you been vacinated for Covid-19: Yes PHQ-9 PHQ-2 Over the last 2 weeks, how often have you been bothered by any of the following problems? 1. Little interest or pleasure in doing things: not at all 2. Feeling down, depressed, or hopeless: not at all Total score: 0 PHQ-9 3. Trouble falling or staying asleep, or sleeping too much: Not at all 4. Feeling tired or having little energy: Not at all 5. Poor appetite or overeating: Not at all 6. Feeling bad about yourself - or that you are a failure or have let yourself or your family down: Not at all 7. Trouble concentrating on things, such as reading the newspaper or watching television: Not at all 8. Moving or speaking so slowly that other people could have noticed? - Or the opposite - being so fidgety or restless that you have been moving around a lot more than usual: not at all 9. Thoughts that you would be better off or of hurting yourself in some way: Not at all Total score: 0 If you checked off any problems, how difficult have these problems made it for you to do your work, take care of things at home, or get along with other people?: not difficult at all Source: Developed by Drs. Brian Gamble, Marsha Calle, Nayan Regan and colleagues, with an educational rayray from [employer]. Depression screen completed yes Social History Living Situation History Lives With: Family Housing: House Tobacco History Smoking Status: Never smoker Alcohol History Alcohol Intake: Never Domestic Abuse History Do You Feel Safe at Home: Yes Care OB Visit Log OB Flowsheet Initial Weight: Not Recorded Date -?--?-?-?-?-?-?-?-?-?-?-?- EGA Weight BP Alb Glu CTX Pres Fundal ht FHR Mov Dilation Station Effacement Hx Notes Visit Note 11/21/24 -?-?-?-?-?-?-?-?-?-?-?-?- 8w 4d 84.028 kg 127/84 165 21-year-old , presents for her first visit. experiencing mild nausea but denies vomi ting. She also notes breast tenderness. Uterine fibroids, diagnosed via ultrasou nd in November 2023. - Ultrasound (ThuNov 21 2024): - Gestational sac visualized - heart rate: 165 bpm - Fibroid noted outside of s ac. - Perform initial lab tests - Schedule NIPT (non-invasive t esting) at 9 weeks gestation for genetic screening and optional sex determination - Schedule 12-week ultrasound for offici al dating and anatomical survey - Schedule 20-week ultrasound for detail ed anatomical survey - Follow-up appointment in 7-10 days to review lab results and repeat ultrasound 12/06/24 -?-?-?-?-?-?-?-?-?-?-?-?- 10w 5d 83.461 kg 134/87 165 No CTX/LOF/VB. Reports good FM. No TRINH/VS, Epig/RUQ pain. Nausea peaked around 9w and has now subs ided. Denies vomiting or other concerns. Ultrasound: FHR 165 bpm. head, bod y, limbs visualized. Labs: Blood type O Rh-negative, Ab scree n negative, TSH 0.53. UA: epithelial cells present. STI panel and infectious labs negative. Rubella immune, varicella IgG positive. NIPT pending. Assessment & Plan: 10w5d IUP, reassuring findings, resolved early symptoms. Rh-negative. Schedule NT scan at [place] Provide [facility] form for NIPT Log Manager on Rhogam if any bleeding occurs Continue routine care Reviewed labor signs and routine counseling No CTX/LOF/VB. Reports good FM. No TRINH/VS, Epig/RUQ pain. Nausea peaked around 9w and has now subs ided. Denies vomiting or other concerns. Ultrasound: FHR 165 bpm. head, bod y, limbs visualized. Labs: Blood type O Rh-negative, Ab scree n negative, TSH 0.53. UA: epithelial cells present. STI panel and infectious labs negative. Rubella immune, varicella IgG positive. NIPT pending. Assessment & Plan: 10w5d IUP, reassuring findings, resolved early symptoms. Rh-negative. Schedule NT scan at [place] Provide [facility] form for NIPT Log Manager on Rhogam if any bleeding occurs Continue routine care Reviewed labor signs and routine counseling. Laboratory, Imaging, and Diagnostic Test Results - Date: 11/21/2024 - Blood group: O negative - Antibody screen: Negative - TSH: 0.53 - Urinalysis: Squamous epithelial cell s present, otherwise within normal limits - Syphilis serology: Negative - Gonorrhea: Negative - Chlamydia: Negative - Hepatitis B: Negative - Hepatitis C: Negative - HIV 1 and 2: Negative - Rubella: Immune - Trichomonas: Negative - Varicella zoster antibody: Positive - Ultrasound (12/06/2024): - Gestational age: 10 weeks 2 days - heart rate: 165 bpm - anatomy: Head, body, hands, and legs visualized 01/04/25 -?-?-?-?-?-?-?-?-?-?-?-?- 14w 6d 83.064 kg 124/84 140 No movement no bleeding no contractions 02/01/25 -?-?-?-?-?-?-?-?-?-?-?-?- 18w 6d 83.121 kg 120/84 142 active at 18w6d, RASHAAD 06/29/25. Denies TRINH/VC/epigastric pain. Starting to feel FM ( flickers ) on right side. Hx elevated HR, followed by cardiology. Family hx HTN (father). FHR 142, cephalic presentation. US shows normal anatomy, female fetus. Genetics negative. Anatomy scan next week at [facility] FU ~24w with glucose screening, routine care. 03/15/25 -?-?-?-?-?-?-?-?-?-?-?-?- 24w 6d 84.368 kg 125/84 occasional cephalic 25 158 active - She reports an increase in vaginal discharge that is white with a slight yellow tinge. - Denies foul odor, itching, or pain a ssociated with the discharge. - Wonders if the discharge could be re lated to vitamins. - She mentions a history of tachycardia and monitors her blood pressure at home. - Reports one recent episode where her heart rate was 120 while resting, but blood pressure remained normal. - Had an EKG performed about a year ag o by cardiology with normal results. - She denies symptomatic palpitations. - Patient had a yeast infection about a year ago that was treated with Fluconazole. - Start aspirin daily until delivery for preeclampsia prevention due to family history of hypertension - Treat bacterial vaginosis with topical cream (avoid oral tablets) - Schedule fasting 1-hour glucose tolera nce test - Follow-up appointment in 4 weeks, then transition to every 2 weeks thereafter 04/21/25 -?-?-?-?-?-?-?-?-?-?-?-?- 30w 1d 87.203 kg 127/82 occasional cephalic 31 160 active - One-hour glucose tolerance test result of 183 mg/dL, leading to a diagnosis of gestational diabetes. - Patient reports a history of pre-diabe mirella since childhood. - Previously treated with metformin, b ut not currently on any medication. - Prior to , experienced low fasting glucose levels (70s-80s mg/dL) and post-meal spikes (160-180 mg/dL). - Reports active movement, particu larly at night. - Mentions having vaginal discharge. - Notes occasional frothy appearance of urine. - Denies any history of diabetes. - Start low-dose metformin for gestational diabetes management - Provide glucose meter and test strips for blood sugar monitoring - Administer Rhogam shot today - Schedule next appointment in 2 weeks - Plan for A1C and CBC tests at next oren ointment - Prescribe vaginal cream for discharge - Administer Tdap vaccine with Rhogam to day - Recommend flu and RSV vaccines when av ailable - Send prescription to [facility] on [address] 05/03/25 -?-?-?-?-?-?-?-?-?-?-?-?- 31w 6d 86.636 kg 130/84 occasional cephalic 32 145 active - She was started on metformin at the last visit for gestational diabetes management. - Patient reports possible episodes of r eactive hypoglycemia after taking metformin: - Experienced low blood sugar after ta niki medication - Ate cereal to raise glucose levels - Fasting blood glucose levels: - Generally within normal range - Highest reported fasting glucose was 99 mg/dL - Post-prandial glucose: - Reports a 2-hour post-prandial gluco se of 147 mg/dL after eating two chicken sandwiches - Current metformin regimen: - Taking 500 mg once daily - movement: - Patient believes the baby has change d position - Feels increased pressure in upper ab domen - Urinary symptoms: - Reports frequent urination, approxim ately every 1.5 hours - Describes feeling of bladder fullnes s - Experiences sensation of heaviness w hen waking at night - Denies any other significant symptoms or concerns - Hold metformin for a week, then resume taking it with lunch - Monitor for hypoglycemia; if it contin ues, discontinue metformin - Telephone appointment scheduled for thursday to review glucose logs - A1c test ordered, can be done anytime (non-fasting) - Continue monitoring position; ul trasounds to be performed at each visit - Referral for auditor in charge at the hospit al has been sent and patient has been contacted - Follow-up in-person appointment in 2 w [facility] 05/08/25 -?-?-?-?-?-?-?-?-?-?-?-?- 32w 4d occasional cephalic 34 - María Chaparro is a female presenting for a televisit for glucose logs and A1c results. - She reports her 2-hour glucose was 76 without metformin, having not taken metformin for 2 days. - She continues to have issues with not being hungry early in the morning and inconsistent eating patterns. - She reports a recent episode of fluid on her underwear with a small amount of white discharge. - Describes the discharge as a tiny am ount of white discharge surrounded by a larger andreafski of fluid. - Denies any associated cramping. - Episode appears to have been isolated and has stopped. - Discontinue metformin - If vaginal discharge with fluid contin ues, present to labor and delivery for ultrasound and amniotic fluid assessment - Continue consistent eating patterns - Follow up at scheduled in-person appoi ntment next week 06/01/25 -?-?-?-?-?-?-?-?-?-?-?-?- 36w 0d 88.564 kg 134/80 occasional cephalic 36 165 active - She has slightly elevated blood pressures today at 134/80 mmHg. - She has gestational diabetes mellitus and was previously on metformin, but discontinued the medication due to low glucose levels. - She reports her blood sugars have been okay with nothing super high since stopping metformin. - She is Rh-negative. - She had an amniotic fluid index (FELECAI) measurement yesterday which was 10, with the previous measurement being 12. - Hold metformin due to low glucose levels - GBS culture to be performed via self-s wab between 35-37 weeks - FELECIA monitoring - recent measurements a t labor and delivery have been acceptable (10-12), no repeat needed today given yesterday's measurement - Continue glucose monitoring RASHAAD Calculator Estimated Delivery Date Method Current WG Current Estimate 06/29/25 LMP (Certain) 36w 5d Specific Issue/Plans Rh-. Will need RhoGAM. Notes Visit Date: 05/03/25 Last Updated by: Miguel Amos MD - Ultrasound: - position: Head down, not engaged in lower pelvis Visit Date: 01/04/25 Last Updated by: Sandra Seals (OB Clinic)MD NIPT reviewed with patient and father the baby 46XX Office Procedures OBC Clinic LOC & Office Proc's Nursing/Assessment Patient Status: Established Patient OB Clinic Nursing Assessment: Medication Reconciliation, Update PMH in EMR and Vital Signs OB Clinic Coordination of Care: Consent,records obtained, informed consent, Education Simp Pt/Fam, Lab and Imaging orders, Results/Orders obtained and Staff clarify orders Special Needs: Heart tones Established Patient Charge Established Patient Point Assignment: 110 Established Patient Point Charge: EP Level 3 (80-115) Assessment & Plan Diagnosis / Problem List (1) Gestational diabetes mellitus treated with oral hypoglycemic therapy: Status: Acute Plan Problem List - Gestational diabetes mellitus - Rh isoimmunization - Elevated blood pressure in - Oligohydramnios Assessment 36-week patient with gestational diabetes mellitus currently managed with metformin, though medication was recently held due to low glucose readings. Patient presents with slightly elevated blood pressure of 134/80 mmHg. Amniotic fluid index measurements show discrepancy between facilities, with [facility] reporting 14.6 and [facility] labor and delivery reporting 5.5, though recent measurements at 07 have been stable at 12 and 10. Patient is Rh-negative. heart rate is normal at 165 bpm. Group B Streptococcus screening is due at this gestational age. Plan - Hold metformin due to low glucose levels - GBS culture to be performed via self-swab between 35-37 weeks - FELECIA monitoring - recent measurements at labor and delivery have been acceptable (10-12), no repeat needed today given yesterday's measurement - Continue glucose monitoring 1. Progress Reviewed gestational age (36 weeks 0 days), growth, and heart rate (165 bpm, normal). Planned frequent visits (every 2 weeks until 36 weeks, then weekly). 2. Instructed patient to monitor movements and report decreases immediately. 3. Testing Counseled on routine third-trimester labs per guidelines. Discussed potential need for ultrasound or monitoring based on risk factors (FELECIA monitoring due to previous low measurements). 4. Preeclampsia Precaution Educated on preeclampsia signs: severe headache, vision changes, right upper quadrant pain, sudden swelling. Advised urgent reporting of symptoms and discussed blood pressure monitoring if high risk (elevated BP 134/80 noted). 5. Labor Precautions Reviewed labor signs: regular contractions, pelvic pressure, back pain, bleeding, or fluid leakage. Instructed to seek immediate care for these symptoms. 6. Lifestyle and Delivery Preparation Reinforced vitamins, nutrition, and safe activity. Discussed plan, pain management, and . Advised on labor preparation (e.g., hospital bag) and expectations. 7. Psychosocial Support Assessed emotional well-being and offered resources for mental health or parenting support.
[2025-06-01 10:17] VITALS: BP 134/80; PULSE 90; RESP 18; TEMP 36.2; O2SAT 97; BMI 32.5
== END 2025-06-01 10:29 | disposition home or self-care (01) ==
LOC: HODSOBC 09:59
PROVIDERS: Supervising Provider Obstetrics & Gynecology; Visit Provider Obstetrics & Gynecology
DX: O09.893 Supervision of other high risk pregnancies, third trimester (principal); O24.415 Gestational diabetes mellitus in pregnancy, controlled by oral hypoglycemic drugs; O41.03X0 Oligohydramnios, third trimester, not applicable or unspecified; O36.0930 Maternal care for other rhesus isoimmunization, third trimester, not applicable or unspecified; Z67.41 Type O blood, Rh negative; Z3A.36 36 weeks gestation of pregnancy
CPT/HCPCS: 99213; G0463

== ENCOUNTER 2025-06-08 14:56 | Outpatient (AMB) | payer BC, SELFPAY ==
--- NOTE | 2025-06-08 15:02 | OBCLNT_ITS ---
Vital Signs 06/08/25 15:03 Height 1.65 m Height Method Stated Weight 89.868 kg Weight Measurement Method Standing Scale BMI 33.0 BP 122/85 H Blood Pressure Source Automatic Cuff Blood Pressure Location Left Upper Arm Position Sitting Respiration 16 Pulse 86 Pulse Source Monitor Temp 97.8 F Temp Source Oral Pulse Oximetry (%) 98 Oxygen Delivery Method Room Air Allergies/Home Meds Allergies & Medications Allergies No Known Allergies Allergy (Verified 06/08/25 15:06) Medication Reconciliation vits no.126-ferrous fum 28 mg iron-folic acid 800 mcg tablet (Classic ) tab PO 12/06/24 [History Confirmed 06/08/25] aspirin 81 mg tablet 81 mg PO QDAY 90 days #90 tabs 03/15/25 [Rx Confirmed 06/08/25] blood sugar diagnostic (Blood Glucose Test strips) #100 ea 04/21/25 [Rx C onfirmed 06/08/25] blood-glucose meter #1 ea 04/21/25 [Rx Confirmed 06/08/25] lancets 21 gauge #100 ea 04/21/25 [Rx Confirmed 06/08/25] metformin 500 mg tablet 500 mg PO QDAY 90 days #90 tabs 04/21/25 [Rx Confirmed 06/08/25] Intake Visit Data Collection New Patient or Established: Established Patient (seen at [facility] within 3 years) Reason for Visit:: CARE/ GBS RESULTS Seen by Clinical Staff ONLY (RN/MA): No Sports Medicine [place] Required: No Do You Feel Safe at Home: Yes Authorities Contacted: N/A PCP or OBGYN visit in last 3 months: Yes Hx Now: Yes Are you currently on any form of Control: No Pain Present Currently: No Pain Scale Used: Maya-Hall/Numerical Pain scale:: 0 Smoking Status Smoking Status: Never smoker Immunizations Flu Vaccine in the Last 12 Months: Yes Flu Vaccine Exclusion Criteria: Already Received Questionnaires Covid-19 Vaccine Questionnaire Has patient been vacinated for Covid-19 Have you been vacinated for Covid-19: Yes PHQ-9 PHQ-2 Over the last 2 weeks, how often have you been bothered by any of the following problems? 1. Little interest or pleasure in doing things: not at all 2. Feeling down, depressed, or hopeless: not at all Total score: 0 PHQ-9 3. Trouble falling or staying asleep, or sleeping too much: Not at all 4. Feeling tired or having little energy: Not at all 5. Poor appetite or overeating: Not at all 6. Feeling bad about yourself - or that you are a failure or have let yourself or your family down: Not at all 7. Trouble concentrating on things, such as reading the newspaper or watching television: Not at all 8. Moving or speaking so slowly that other people could have noticed? - Or the opposite - being so fidgety or restless that you have been moving around a lot more than usual: not at all 9. Thoughts that you would be better off or of hurting yourself in some way: Not at all Total score: 0 Source: Developed by Drs. Brian Gamble, Marsha Calle, Nayan Regan and colleagues, with an educational rayray from [employer]. Depression screen completed yes Social History Living Situation History Lives With: Family Housing: House Tobacco History Smoking Status: Never smoker Alcohol History Alcohol Intake: Never Domestic Abuse History Do You Feel Safe at Home: Yes Care OB Visit Log OB Flowsheet Initial Weight: Not Recorded Date -?-?-?-?-?-?-?-?-?-?-?-?- EGA Weight BP Alb Glu CTX Pres Fundal ht FHR Mov Dilation Station Effacement Hx Notes Visit Note 11/21/24 -?-?-?-?-?-?-?-?-?-?-?-?- 8w 4d 84.028 kg 127/84 165 21-year-old , presents for her first visit. experiencing mild nausea but denies vomi ting. She also notes breast tenderness. Uterine fibroids, diagnosed via ultrasou nd in November 2023. - Ultrasound (ThuNov 21 2024): - Gestational sac visualized - heart rate: 165 bpm - Fibroid noted outside of s ac. - Perform initial lab tests - Schedule NIPT (non-invasive t esting) at 9 weeks gestation for genetic screening and optional sex determination - Schedule 12-week ultrasound for offici al dating and anatomical survey - Schedule 20-week ultrasound for detail ed anatomical survey - Follow-up appointment in 7-10 days to review lab results and repeat ultrasound 12/06/24 -?-?-?-?-?-?-?-?-?-?-?-?- 10w 5d 83.461 kg 134/87 165 No CTX/LOF/VB. Reports good FM. No TRINH/VS, Epig/RUQ pain. Nausea peaked around 9w and has now subs ided. Denies vomiting or other concerns. Ultrasound: FHR 165 bpm. head, bod y, limbs visualized. Labs: Blood type O Rh-negative, Ab scree n negative, TSH 0.53. UA: epithelial cells present. STI panel and infectious labs negative. Rubella immune, varicella IgG positive. NIPT pending. Assessment & Plan: 10w5d IUP, reassuring findings, resolved early symptoms. Rh-negative. Schedule NT scan at [place] Provide [facility] form for NIPT Wellness Director on Rhogam if any bleeding occurs Continue routine care Reviewed labor signs and routine counseling No CTX/LOF/VB. Reports good FM. No TRINH/VS, Epig/RUQ pain. Nausea peaked around 9w and has now subs ided. Denies vomiting or other concerns. Ultrasound: FHR 165 bpm. head, bod y, limbs visualized. Labs: Blood type O Rh-negative, Ab scree n negative, TSH 0.53. UA: epithelial cells present. STI panel and infectious labs negative. Rubella immune, varicella IgG positive. NIPT pending. Assessment & Plan: 10w5d IUP, reassuring findings, resolved early symptoms. Rh-negative. Schedule NT scan at [place] Provide [facility] form for NIPT Wellness Director on Rhogam if any bleeding occurs Continue routine care Reviewed labor signs and routine counseling. Laboratory, Imaging, and Diagnostic Test Results - Date: 11/21/2024 - Blood group: O negative - Antibody screen: Negative - TSH: 0.53 - Urinalysis: Squamous epithelial cell s present, otherwise within normal limits - Syphilis serology: Negative - Gonorrhea: Negative - Chlamydia: Negative - Hepatitis B: Negative - Hepatitis C: Negative - HIV 1 and 2: Negative - Rubella: Immune - Trichomonas: Negative - Varicella zoster antibody: Positive - Ultrasound (12/06/2024): - Gestational age: 10 weeks 2 days - heart rate: 165 bpm - anatomy: Head, body, hands, and legs visualized 01/04/25 -?-?-?-?-?-?-?-?-?-?-?-?- 14w 6d 83.064 kg 124/84 140 No movement no bleeding no contractions 02/01/25 -?-?-?-?-?-?-?-?-?-?-?-?- 18w 6d 83.121 kg 120/84 142 active at 18w6d, RASHAAD 06/29/25. Denies TRINH/VC/epigastric pain. Starting to feel FM ( flickers ) on right side. Hx elevated HR, followed by cardiology. Family hx HTN (father). FHR 142, cephalic presentation. US shows normal anatomy, female fetus. Genetics negative. Anatomy scan next [facility] at [facility] FU ~24w with glucose screening, routine care. 03/15/25 -?-?-?-?-?-?-?-?-?-?-?-?- 24w 6d 84.368 kg 125/84 occasional cephalic 25 158 active - She reports an increase in vaginal discharge that is white with a slight yellow tinge. - Denies foul odor, itching, or pain a ssociated with the discharge. - Wonders if the discharge could be re lated to vitamins. - She mentions a history of tachycardia and monitors her blood pressure at home. - Reports one recent episode where her heart rate was 120 while resting, but blood pressure remained normal. - Had an EKG performed about a year ag o by cardiology with normal results. - She denies symptomatic palpitations. - Patient had a yeast infection about a year ago that was treated with Fluconazole. - Start aspirin daily until delivery for preeclampsia prevention due to family history of hypertension - Treat bacterial vaginosis with topical cream (avoid oral tablets) - Schedule fasting 1-hour glucose tolera nce test - Follow-up appointment in 4 weeks, then transition to every 2 weeks thereafter 04/21/25 -?-?-?-?-?-?-?-?-?-?-?-?- 30w 1d 87.203 kg 127/82 occasional cephalic 31 160 active - One-hour glucose tolerance test result of 183 mg/dL, leading to a diagnosis of gestational diabetes. - Patient reports a history of pre-diabe mirella since childhood. - Previously treated with metformin, b ut not currently on any medication. - Prior to , experienced low fasting glucose levels (70s-80s mg/dL) and post-meal spikes (160-180 mg/dL). - Reports active movement, particu larly at night. - Mentions having vaginal discharge. - Notes occasional frothy appearance of urine. - Denies any history of diabetes. - Start low-dose metformin for gestational diabetes management - Provide glucose meter and test strips for blood sugar monitoring - Administer Rhogam shot today - Schedule next appointment in 2 weeks - Plan for A1C and CBC tests at next oren ointment - Prescribe vaginal cream for discharge - Administer Tdap vaccine with Rhogam to day - Recommend flu and RSV vaccines when av ailable - Send prescription to [facility] on [address] 05/03/25 -?-?-?-?-?-?-?-?-?-?-?-?- 31w 6d 86.636 kg 130/84 occasional cephalic 32 145 active - She was started on metformin at the last visit for gestational diabetes management. - Patient reports possible episodes of r eactive hypoglycemia after taking metformin: - Experienced low blood sugar after ta niki medication - Ate cereal to raise glucose levels - Fasting blood glucose levels: - Generally within normal range - Highest reported fasting glucose was 99 mg/dL - Post-prandial glucose: - Reports a 2-hour post-prandial gluco se of 147 mg/dL after eating two chicken sandwiches - Current metformin regimen: - Taking 500 mg once daily - movement: - Patient believes the baby has change d position - Feels increased pressure in upper ab domen - Urinary symptoms: - Reports frequent urination, approxim ately every 1.5 hours - Describes feeling of bladder fullnes s - Experiences sensation of heaviness w hen waking at night - Denies any other significant symptoms or concerns - Hold metformin for a week, then resume taking it with lunch - Monitor for hypoglycemia; if it contin ues, discontinue metformin - Telephone appointment scheduled for thursday to review glucose logs - A1c test ordered, can be done anytime (non-fasting) - Continue monitoring position; ul trasounds to be performed at each visit - Referral for armorer technician at the [facility] has been sent and patient has been contacted - Follow-up in-person appointment in 2 w [facility] 05/08/25 -?-?-?-?-?-?-?-?-?-?-?-?- 32w 4d occasional cephalic 34 - María Chaparro is a female presenting for a televisit for glucose logs and A1c results. - She reports her 2-hour glucose was 76 without metformin, having not taken metformin for 2 days. - She continues to have issues with not being hungry early in the morning and inconsistent eating patterns. - She reports a recent episode of fluid on her underwear with a small amount of white discharge. - Describes the discharge as a tiny am ount of white discharge surrounded by a larger atka of fluid. - Denies any associated cramping. - Episode appears to have been isolated and has stopped. - Discontinue metformin - If vaginal discharge with fluid contin ues, present to labor and delivery for ultrasound and amniotic fluid assessment - Continue consistent eating patterns - Follow up at scheduled in-person appoi ntment next week 06/01/25 -?-?-?-?-?-?-?-?-?-?-?-?- 36w 0d 88.564 kg 134/80 occasional cephalic 36 165 active - She has slightly elevated blood pressures today at 134/80 mmHg. - She has gestational diabetes mellitus and was previously on metformin, but discontinued the medication due to low glucose levels. - She reports her blood sugars have been okay with nothing super high since stopping metformin. - She is Rh-negative. - She had an amniotic fluid index (FELECIA) measurement yesterday which was 10, with the previous measurement being 12. - Hold metformin due to low glucose levels - GBS culture to be performed via self-s wab between 35-37 weeks - FELECIA monitoring - recent measurements a t labor and delivery have been acceptable (10-12), no repeat needed today given yesterday's measurement - Continue glucose monitoring 06/08/25 -?-?-?-?-?-?-?-?-?-?-?-?- 37w 0d 89.868 kg 122/85 occasional cephalic 37 145 active - She reports constant pelvic pressure that is not like contractions. - She experiences intermittent cramping that comes and goes. - She has noticed increased white vagina l discharge. - She reports losing some mucus plug fiona t is jelly-like, sticky, and stretchy. - She denies bleeding or leaking of ronnie r fluid. - Yesterday she noticed sticky fluid fro m her breast, consistent with early . - Baby remains active with good mo vement. - She is currently working but plans to finish next week at 38 week s gestation. - Check for cervical dilation at next visit - Obtain GBS culture results when [employer] portal is available - Patient to finish work at 38 weeks ( xt week is last week) - Return to Labor and Delivery anytime f or increased contractions or pressure - Follow up in one week - Have hospital bag ready and transporta tion arranged RASHAAD Calculator Estimated Delivery Date Method Current WG Current Estimate 06/29/25 LMP (Certain) 37w 0d Specific Issue/Plans Rh-. Will need RhoGAM. Notes Visit Date: 05/03/25 Last Updated by: Miguel Amos MD - Ultrasound: - position: Head down, not engaged in lower pelvis Visit Date: 01/04/25 Last Updated by: Sandra Seals (OB Clinic)MD NIPT reviewed with patient and father the baby 46XX Office Procedures [facility] Clinic LOC & Office Proc's Nursing/Assessment Patient Status: Established Patient OB Clinic Nursing Assessment: Medication Reconciliation, Update PMH in EMR and Vital Signs OB Clinic Coordination of Care: Complex Care and Chronic Disease 1-5, Consent,records obtained, informed consent, Education Simp Pt/Fam, 1 Ins Authorization, Lab and Imaging orders, Results/Orders obtained and Staff clarify orders Special Needs: Heart tones Established Patient Charge Established Patient Point Assignment: 150 Established Patient Point Charge: EP Level 4 (120-155) Assessment & Plan Diagnosis / Problem List (1) Gestational diabetes mellitus treated with oral hypoglycemic therapy: Status: Acute Plan Assessment 37-week patient presenting with pelvic pressure described as constant but not contractions, along with intermittent cramping that comes and goes consistent with pre-labor symptoms. Patient reports increased white vaginal discharge with sticky, stretchy, jello-like consistency suggestive of mucus plug loss. No bleeding or clear fluid leakage reported. Patient experiencing with sticky fluid from breast. activity remains active. Maternal heart rate 145 bpm. GBS culture results pending due to [facility] portal issues. Plan - Check for cervical dilation at next visit - Obtain GBS culture results when [facility] portal is available - Patient to finish work at 38 weeks (next week is last week) - Return to Labor and Delivery anytime for increased contractions or pressure - Follow up in one week - Have hospital bag ready and transportation arranged 1. Progress Reviewed gestational age (37 weeks), growth, and heart rate (145 bpm, normal). Planned frequent visits (every 2 weeks until 36 weeks, then weekly). 2. Instructed patient to monitor movements and report decreases immediately. Patient reports baby is very active, which is a sign of a healthy baby. 3. Testing Counseled on routine third-trimester labs per guidelines. GBS culture was performed last week but results pending due to [employer] portal being down. Discussed potential need for ultrasound or monitoring based on risk factors. 4. Preeclampsia Precaution Educated on preeclampsia signs: severe headache, vision changes, right upper quadrant pain, sudden swelling. Advised urgent reporting of symptoms and discussed blood pressure monitoring if high risk. 5. Labor Precautions Reviewed labor signs: regular contractions, pelvic pressure, back pain, bleeding, or fluid leakage. Patient experiencing pelvic pressure and cramping that comes and goes, which is normal pre-labor. White discharge and mucus plug loss noted as normal. No bleeding or clear fluid leakage reported. Instructed to seek immediate care for these symptoms. 6. Lifestyle and Delivery Preparation Reinforced vitamins, nutrition, and safe activity. Patient finishes work at 38 weeks. Discussed plan, pain management, and . noted as normal occurrence. Advised on labor preparation (hospital bag ready, designated delivery truck driver heavy) and expectations. 7. Psychosocial Support Assessed emotional well-being and offered resources for mental health or parenting support.
[2025-06-08 15:03] VITALS: BP 122/85; PULSE 86; RESP 16; TEMP 36.6; O2SAT 98; BMI 33.0
== END 2025-06-08 15:43 | disposition home or self-care (01) ==
LOC: HODSOBC 14:56
PROVIDERS: Supervising Provider Obstetrics & Gynecology; Visit Provider Obstetrics & Gynecology
DX: O09.893 Supervision of other high risk pregnancies, third trimester (principal); O24.415 Gestational diabetes mellitus in pregnancy, controlled by oral hypoglycemic drugs; Z67.41 Type O blood, Rh negative; Z3A.37 37 weeks gestation of pregnancy
CPT/HCPCS: 99214; G0463

== ENCOUNTER 2025-06-22 13:29 | Outpatient (AMB) | payer BC, SELFPAY ==
[2025-06-22 13:48] VITALS: BP 123/83; PULSE 87; RESP 18; TEMP 36.7; O2SAT 97; BMI 32.9
--- NOTE | 2025-06-22 13:48 | OBCLNT_ITS ---
Vital Signs 06/22/25 13:48 Height 1.65 m Height Method Stated Weight 89.584 kg Weight Measurement Method Standing Scale BMI 32.9 BP 123/83 Blood Pressure Source Automatic Cuff Blood Pressure Location Left Upper Arm Position Sitting Respiration 18 Pulse 87 Pulse Source Monitor Temp 98.0 F Temp Source Temporal Artery Scan Pulse Oximetry (%) 97 Oxygen Delivery Method Room Air Allergies/Home Meds Allergies & Medications Allergies No Known Allergies Allergy (Verified 06/22/25 13:49) Medication Reconciliation vits no.126-ferrous fum 28 mg iron-folic acid 800 mcg tablet (Classic ) tab PO 12/06/24 [History Confirmed 06/22/25] aspirin 81 mg tablet 81 mg PO QDAY 90 days #90 tabs 03/15/25 [Rx Confirmed 06/22/25] blood sugar diagnostic (Blood Glucose Test strips) #100 ea 04/21/25 [Rx Confirmed 06/22/25] blood-glucose meter #1 ea 04/21/25 [Rx Confirmed 06/22/25] lancets 21 gauge #100 ea 04/21/25 [Rx Confirmed 06/22/25] metformin 500 mg tablet 500 mg PO QDAY 90 days #90 tabs 04/21/25 [Rx Confirmed 06/22/25] Intake Visit Data Collection New Patient or Established: Established Patient (seen at [facility] within 3 years) Reason for Visit:: OBC Seen by Clinical Staff ONLY (RN/MA): No Bag Bailer Required: No Do You Feel Safe at Home: Yes Authorities Contacted: N/A PCP or OBGYN visit in last 3 months: Yes Date of Last PCP or OBGYN visit: 06/01/25 Hx Now: Yes Are you currently on any form of Control: No Pain Present Currently: Yes Pain Scale Used: Maya-Hall/Numerical Pain scale:: 6 Smoking Status Smoking Status: Never smoker Immunizations Flu Vaccine in the Last 12 Months: No Flu Vaccine Exclusion Criteria: No Exclusion Criteria Questionnaires Covid-19 Vaccine Questionnaire Has patient been vacinated for Covid-19 Have you been vacinated for Covid-19: No PHQ-9 PHQ-2 Over the last 2 weeks, how often have you been bothered by any of the following problems? 1. Little interest or pleasure in doing things: not at all 2. Feeling down, depressed, or hopeless: not at all Total score: 0 PHQ-9 3. Trouble falling or staying asleep, or sleeping too much: Not at all 4. Feeling tired or having little energy: Not at all 5. Poor appetite or overeating: Not at all 6. Feeling bad about yourself - or that you are a failure or have let yourself or your family down: Not at all 7. Trouble concentrating on things, such as reading the newspaper or watching television: Not at all 8. Moving or speaking so slowly that other people could have noticed? - Or the opposite - being so fidgety or restless that you have been moving around a lot more than usual: not at all 9. Thoughts that you would be better off or of hurting yourself in some way: Not at all Total score: 0 If you checked off any problems, how difficult have these problems made it for you to do your work, take care of things at home, or get along with other people?: not difficult at all Source: Developed by Drs. Brian Gamble, Marsha Calle, Nayan Regan and colleagues, with an educational rayray from [employer]. Depression screen completed yes Social History Living Situation History Marital Status: Life Partner Lives With: Family Housing: House Tobacco History Smoking Status: Never smoker Second Hand Smoke Exposure: No Alcohol History Alcohol Intake: Never Domestic Abuse History Do You Feel Safe at Home: Yes Care OB Visit Log OB Flowsheet Initial Weight: Not Recorded Date -?-?-?-?-?-?-?-?-?-?-?-?- EGA Weight BP Alb Glu CTX Pres Fundal ht FHR Mov Dilation Station Effacement Hx Notes Visit Note 11/21/24 -?-?-?-?-?-?-?-?-?-?-?-?- 8w 4d 84.028 kg 127/84 165 21-year-old , presents for her first visit. experiencing mild nausea but denies vomi ting. She also notes breast tenderness. Uterine fibroids, diagnosed via ultrasou nd in November 2023. - Ultrasound (ThuNov 21 2024): - Gestational sac visualized - heart rate: 165 bpm - Fibroid noted outside of s ac. - Perform initial lab tests - Schedule NIPT (non-invasive t esting) at 9 weeks gestation for genetic screening and optional sex determination - Schedule 12-week ultrasound for offici al dating and anatomical survey - Schedule 20-week ultrasound for detail ed anatomical survey - Follow-up appointment in 7-10 days to review lab results and repeat ultrasound 12/06/24 -?-?-?-?-?-?-?-?-?-?-?-?- 10w 5d 83.461 kg 134/87 165 No CTX/LOF/VB. Reports good FM. No TRINH/VS, Epig/RUQ pain. Nausea peaked around 9w and has now subs ided. Denies vomiting or other concerns. Ultrasound: FHR 165 bpm. head, bod y, limbs visualized. Labs: Blood type O Rh-negative, Ab scree n negative, TSH 0.53. UA: epithelial cells present. STI panel and infectious labs negative. Rubella immune, varicella IgG positive. NIPT pending. Assessment & Plan: 10w5d IUP, reassuring findings, resolved early symptoms. Rh-negative. Schedule NT scan at [place] Provide [facility] form for NIPT Vocational Teacher on Rhogam if any bleeding occurs Continue routine care Reviewed labor signs and routine counseling No CTX/LOF/VB. Reports good FM. No TRINH/VS, Epig/RUQ pain. Nausea peaked around 9w and has now subs ided. Denies vomiting or other concerns. Ultrasound: FHR 165 bpm. head, bod y, limbs visualized. Labs: Blood type O Rh-negative, Ab scree n negative, TSH 0.53. UA: epithelial cells present. STI panel and infectious labs negative. Rubella immune, varicella IgG positive. NIPT pending. Assessment & Plan: 10w5d IUP, reassuring findings, resolved early symptoms. Rh-negative. Schedule NT scan at [place] Provide [facility] form for NIPT Vocational Teacher on Rhogam if any bleeding occurs Continue routine care Reviewed labor signs and routine counseling. Laboratory, Imaging, and Diagnostic Test Results - Date: 11/21/2024 - Blood group: O negative - Antibody screen: Negative - TSH: 0.53 - Urinalysis: Squamous epithelial cell s present, otherwise within normal limits - Syphilis serology: Negative - Gonorrhea: Negative - Chlamydia: Negative - Hepatitis B: Negative - Hepatitis C: Negative - HIV 1 and 2: Negative - Rubella: Immune - Trichomonas: Negative - Varicella zoster antibody: Positive - Ultrasound (12/06/2024): - Gestational age: 10 weeks 2 days - heart rate: 165 bpm - anatomy: Head, body, hands, and legs visualized 01/04/25 -?-?-?-?-?-?-?-?-?-?-?-?- 14w 6d 83.064 kg 124/84 140 No movement no bleeding no cont ractions 02/01/25 -?-?-?-?-?-?-?-?-?-?-?-?- 18w 6d 83.121 kg 120/84 142 active at 18w6d, RASHAAD 06/29/25. Denies TRINH/VC/epigastric pain. Starting to feel FM ( flickers ) on right side. Hx elevated HR, followed by cardiology. Family hx HTN (father). FHR 142, cephalic presentation. US shows normal anatomy, female fetus. Genetics negative. Anatomy scan next [facility] at [facility] FU ~24w with glucose screening, routine care. 03/15/25 -?-?-?-?-?-?-?-?-?-?-?-?- 24w 6d 84.368 kg 125/84 occasional cephalic 25 158 active - She reports an increase in vaginal discharge that is white with a slight yellow tinge. - Denies foul odor, itching, or pain a ssociated with the discharge. - Wonders if the discharge could be re lated to vitamins. - She mentions a history of tachycardia and monitors her blood pressure at home. - Reports one recent episode where her heart rate was 120 while resting, but blood pressure remained normal. - Had an EKG performed about a year ag o by cardiology with normal results. - She denies symptomatic palpitations. - Patient had a yeast infection about a year ago that was treated with Fluconazole. - Start aspirin daily until delivery for preeclampsia prevention due to family history of hypertension - Treat bacterial vaginosis with topical cream (avoid oral tablets) - Schedule fasting 1-hour glucose tolera nce test - Follow-up appointment in 4 weeks, then transition to every 2 weeks thereafter 04/21/25 -?-?-?-?-?-?-?-?-?-?-?-?- 30w 1d 87.203 kg 127/82 occasional cephalic 31 160 active - One-hour glucose tolerance test result of 183 mg/dL, leading to a diagnosis of gestational diabetes. - Patient reports a history of pre-diabe mirella since childhood. - Previously treated with metformin, b ut not currently on any medication. - Prior to , experienced low fasting glucose levels (70s-80s mg/dL) and post-meal spikes (160-180 mg/dL). - Reports active movement, particu larly at night. - Mentions having vaginal discharge. - Notes occasional frothy appearance of urine. - Denies any history of diabetes. - Start low-dose metformin for gestational diabetes management - Provide glucose meter and test strips for blood sugar monitoring - Administer Rhogam shot today - Schedule next appointment in 2 weeks - Plan for A1C and CBC tests at next oren ointment - Prescribe vaginal cream for discharge - Administer Tdap vaccine with Rhogam to day - Recommend flu and RSV vaccines when av ailable - Send prescription to [facility] on [address] 05/03/25 -?-?-?-?-?-?-?-?-?-?-?-?- 31w 6d 86.636 kg 130/84 occasional cephalic 32 145 active - She was started on metformin at the last visit for gestational diabetes management. - Patient reports possible episodes of r eactive hypoglycemia after taking metformin: - Experienced low blood sugar after ta niki medication - Ate cereal to raise glucose levels - Fasting blood glucose levels: - Generally within normal range - Highest reported fasting glucose was 99 mg/dL - Post-prandial glucose: - Reports a 2-hour post-prandial gluco se of 147 mg/dL after eating two chicken sandwiches - Current metformin regimen: - Taking 500 mg once daily - movement: - Patient believes the baby has change d position - Feels increased pressure in upper ab domen - Urinary symptoms: - Reports frequent urination, approxim ately every 1.5 hours - Describes feeling of bladder fullnes s - Experiences sensation of heaviness w hen waking at night - Denies any other significant symptoms or concerns - Hold metformin for a week, then resume taking it with lunch - Monitor for hypoglycemia; if it contin ues, discontinue metformin - Telephone appointment scheduled for thursday to review glucose logs - A1c test ordered, can be done anytime (non-fasting) - Continue monitoring position; ul trasounds to be performed at each visit - [facility] has been sent and patient has been contacted - Follow-up in-person appointment in 2 w [facility] 05/08/25 -?-?-?-?-?-?-?-?-?-?-?-?- 32w 4d occasional cephalic 34 - María Chaparro is a female presenting for a televisit for glucose logs and A1c results. - She reports her 2-hour glucose was 76 without metformin, having not taken metformin for 2 days. - She continues to have issues with not being hungry early in the morning and inconsistent eating patterns. - She reports a recent episode of fluid on her underwear with a small amount of white discharge. - Describes the discharge as a tiny am ount of white discharge surrounded by a larger torres martinez of fluid. - Denies any associated cramping. - Episode appears to have been isolated and has stopped. - Discontinue metformin - If vaginal discharge with fluid contin ues, present to labor and delivery for ultrasound and amniotic fluid assessment - Continue consistent eating patterns - Follow up at scheduled in-person appoi ntment next week 06/01/25 -?-?-?-?-?-?-?-?-?-?-?-?- 36w 0d 88.564 kg 134/80 occasional cephalic 36 165 active - She has slig htly elevated blood pressures today at 134/80 mmHg. - She has gestational diabetes mellitus and was previously on metformin, but discontinued the medication due to low glucose levels. - She reports her blood sugars have been okay with nothing super high since stopping metformin. - She is Rh-negative. - She had an amniotic fluid index (FELECIA) measurement yesterday which was 10, with the previous measurement being 12. - Hold metformin due to low glucose levels - GBS culture to be performed via self-s wab between 35-37 weeks - FELECIA monitoring - recent measurements a t labor and delivery have been acceptable (10-12), no repeat needed today given yesterday's measurement - Continue glucose monitoring 06/08/25 -?-?-?-?-?-?-?-?-?-?-?-?- 37w 0d 89.868 kg 122/85 occasional cephalic 37 145 active - She reports constant pelvic pressure that is not like contractions. - She experiences intermittent cramping that comes and goes. - She has noticed increased white vagina l discharge. - She reports losing some mucus plug fiona t is jelly-like, sticky, and stretchy. - She denies bleeding or leaking of ronnie r fluid. - Yesterday she noticed sticky fluid fro m her breast, consistent with early . - Baby remains active with good mo vement. - She is currently working but plans to finish next week at 38 week s gestation. - Check for cervical dilation at next visit - Obtain GBS culture results when [facility] portal is available - Patient to finish work at 38 weeks ( week is last week) - Return to Labor and Delivery anytime f or increased contractions or pressure - Follow up in one week - Have hospital bag ready and transporta tion arranged 06/22/25 -?-?-?-?-?-?-?-?-?-?-?-?- 39w 0d 89.584 kg 123/83 occasional cephalic 38 155 active - She reports mild cramping that feels similar to period cramps. - She denies having contractions yet, de scribing only the mild cramping sensation. - Yesterday after anesthesia, she experi enced something similar to contractions starting from the top and traveling down. - During this time, the baby was super active for maybe an hour straight. 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 - She has not been checked for cervical dilation at all during this . - Schedule induction for 41 weeks as backup in case patient does not go into labor spontaneously - Return for one-week follow-up appointm ent - Membrane sweep performed during today' s visit RASHAAD Calculator Estimated Delivery Date Method Current WG Current Estimate 06/29/25 LMP (Certain) 39w 1d Specific Issue/Plans Rh-. Will need RhoGAM. Notes Visit Date: 05/03/25 Last Updated by: Miguel Amos MD - Ultrasound: - position: Head down, not engaged in lower pelvis Visit Date: 01/04/25 Last Updated by: Sandra Seals (OB Clinic)MD NIPT reviewed with patient and father the baby 46XX Office Procedures OBC Clinic LOC & Office Proc's Nursing/Assessment Patient Status: Established Patient OB Clinic Nursing Assessment: Medication Reconciliation, Update PMH in EMR and Vital Signs OB Clinic Coordination of Care: Complex Care and Chronic Disease 1-5, Education Complex Pt/Fam, Consent,records obtained, informed consent, Lab and Imaging orders, Results/Orders obtained and Staff clarify orders Special Needs: Heart tones Established Patient Charge Established Patient Point Assignment: 140 Established Patient Point Charge: EP Level 4 (120-155) Assessment & Plan Diagnosis / Problem List (1) Gestational diabetes mellitus treated with oral hypoglycemic therapy: Status: Acute Plan Problem List - at 39 weeks gestation Assessment 39-week patient presenting for routine care with mild cramping described as similar to period cramps and possible early labor signs including uterine activity with associated movement following anesthesia procedure. Cervical examination reveals fingertip dilation (approximately 0.5 cm) with membrane sweeping performed. heart rate is 160 bpm, which is within normal limits. Patient reports no definitive contractions at this time, only mild cramping sensations. Plan - Schedule induction for 41 weeks as backup in case patient does not go into labor spontaneously - Return for one-week follow-up appointment - Membrane sweep performed during today's visit 1. Progress Reviewed gestational age at 39 weeks, growth, and heart rate of 160 bpm (normal). Planned frequent visits with next appointment scheduled for due date (weekly visits at this stage). 2. Instructed patient to monitor movements and report decreases immediately. 3. Testing Counseled on routine third-trimester labs per guidelines. Discussed potential need for ultrasound or monitoring based on risk factors. 4. Preeclampsia Precaution Educated on preeclampsia signs: severe headache, vision changes, right upper quadrant pain, sudden swelling. Advised urgent reporting of symptoms and discussed blood pressure monitoring if high risk. 5. Labor Precautions Reviewed labor signs including contractions that start from the top and travel down. Patient experiencing mild cramping similar to period cramps, which was explained as early labor signs. Membrane sweeping performed to encourage labor onset. Instructed to seek immediate care for progressive contractions and other labor symptoms. 6. Lifestyle and Delivery Preparation Reinforced vitamins, nutrition, and safe activity. Discussed labor preparation and scheduled backup induction at 41 weeks. Explained normal post-procedure spotting and cramping after membrane sweeping. Advised on labor preparation and expectations with 6-week follow-up scheduled. 7. Psychosocial Support Assessed emotional well-being and offered resources for mental health or parenting support.
== END 2025-06-22 14:11 | disposition home or self-care (01) ==
LOC: HODSOBC 13:29
PROVIDERS: Supervising Provider Obstetrics & Gynecology; Visit Provider Obstetrics & Gynecology
DX: O09.893 Supervision of other high risk pregnancies, third trimester (principal); O24.415 Gestational diabetes mellitus in pregnancy, controlled by oral hypoglycemic drugs; Z3A.39 39 weeks gestation of pregnancy; Z67.41 Type O blood, Rh negative
CPT/HCPCS: 99214; G0463

== ENCOUNTER 2025-06-27 11:26 | Outpatient (AMB) | payer BC, SELFPAY ==
[2025-06-27 11:43] VITALS: BP 135/80; PULSE 90; RESP 18; TEMP 36.2; O2SAT 98; BMI 32.8
--- NOTE | 2025-06-27 11:43 | OBCLNT_ITS ---
Vital Signs 06/27/25 11:43 Height 1.65 m Height Method Stated Weight 89.471 kg Weight Measurement Method Standing Scale BMI 32.8 BP 135/80 H Blood Pressure Source Automatic Cuff Blood Pressure Location Right Upper Arm Position Sitting Respiration 18 Pulse 90 Pulse Source Monitor Temp 97.2 F Temp Source Oral Pulse Oximetry (%) 98 Oxygen Delivery Method Room Air Allergies/Home Meds Allergies & Medications Allergies No Known Allergies Allergy (Verified 07/25/25 10:23) Medication Reconciliation vits no.126-ferrous fum 28 mg iron-folic acid 800 mcg tablet (Classic ) 1 tab PO QDAY 12/06/24 [History Confirmed 07/25/25] acetaminophen 325 mg tablet 650 mg (2 x 325 mg) PO Q4H PRN See Comments #60 tabs 07/01/25 [Rx Confirmed 07/25/25] hydrocodone 5 mg-acetaminophen 325 mg tablet 2 tab PO Q6HR PRN Patient rated pain 9 to 10 #10 tabs 07/01/25 [Rx Confirmed 07/25/25] ibuprofen 400 mg tablet 800 mg (2 x 400 mg) PO Q8H PRN See Comments #60 tabs 07/01/25 [Rx Confirmed 07/25/25] Immunizations Immunizations Flu Vaccine in the Last 12 Months: No Flu Vaccine Exclusion Criteria: No Exclusion Criteria Care OB Visit Log OB Flowsheet Initial Weight: Not Recorded Date -?-?-?-?-?-?-?-?-?-?-?-?- EGA Weight BP Alb Glu CTX Pres Fundal ht FHR Mov Dilation Station Effacement Hx Notes Visit Note 11/21/24 -?-?-?--?-?-?-?-?-?-?-?-?- 8w 4d 84.028 kg 127/84 165 21-year-old , presents for her first visit. experiencing mild nausea but denies vomi ting. She also notes breast tenderness. Uterine fibroids, diagnosed via ultrasou nd in November 2023. - Ultrasound (ThuNov 21 2024): - Gestational sac visualized - heart rate: 165 bpm - Fibroid noted outside of s ac. - Perform initial lab tests - Schedule NIPT (non-invasive t esting) at 9 weeks gestation for genetic screening and optional sex determination - Schedule 12-week ultrasound for offici al dating and anatomical survey - Schedule 20-week ultrasound for detail ed anatomical survey - Follow-up appointment in 7-10 days to review lab results and repeat ultrasound 12/06/24 -?-?-?-?-?-?-?-?-?-?-?-?- 10w 5d 83.461 kg 134/87 165 No CTX/LOF/VB. Reports good FM. No TRINH/VS, Epig/RUQ pain. Nausea peaked around 9w and has now subs ided. Denies vomiting or other concerns. Ultrasound: FHR 165 bpm. head, bod y, limbs visualized. Labs: Blood type O Rh-negative, Ab scree n negative, TSH 0.53. UA: epithelial cells present. STI panel and infectious labs negative. Rubella immune, varicella IgG positive. NIPT pending. Assessment & Plan: 10w5d IUP, reassuring findings, resolved early symptoms. Rh-negative. Schedule NT scan at [facility] Provide [facility] form for NIPT Environmental Systems Coordinator on Rhogam if any bleeding occurs Continue routine care Reviewed labor signs and routine counseling No CTX/LOF/VB. Reports good FM. No TRINH/VS, Epig/RUQ pain. Nausea peaked around 9w and has now subs ided. Denies vomiting or other concerns. Ultrasound: FHR 165 bpm. head, bod y, limbs visualized. Labs: Blood type O Rh-negative, Ab scree n negative, TSH 0.53. UA: epithelial cells present. STI panel and infectious labs negative. Rubella immune, varicella IgG positive. NIPT pending. Assessment & Plan: 10w5d IUP, reassuring findings, resolved early symptoms. Rh-negative. Schedule NT scan at [facility] Provide [facility] form for NIPT Environmental Systems Coordinator on Rhogam if any bleeding occurs Continue routine care Reviewed labor signs and routine counseling. Laboratory, Imaging, and Diagnostic Test Results - Date: 11/21/2024 - Blood group: O negative - Antibody screen: Negative - TSH: 0.53 - Urinalysis: Squamous epithelial cell s present, otherwise within normal limits - Syphilis serology: Negative - Gonorrhea: Negative - Chlamydia: Negative - Hepatitis B: Negative - Hepatitis C: Negative - HIV 1 and 2: Negative - Rubella: Immune - Trichomonas: Negative - Varicella zoster antibody: Positive - Ultrasound (12/06/2024): - Gestational age: 10 weeks 2 days - heart rate: 165 bpm - anatomy: Head, body, hands, and legs visualized 01/04/25 -?-?-?-?-?-?-?-?-?-?-?-?- 14w 6d 83.064 kg 124/84 140 No movement no bleeding no contractions 02/01/25 -?-?-?-?-?-?-?-?-?-?-?-?- 18w 6d 83.121 kg 120/84 142 active at 18w6d, RASHAAD 06/29/25. Denies TRINH/VC/epigastric pain. Starting to feel FM ( flickers ) on right side. Hx elev ated HR, followed by cardiology. Family hx HTN (father). FHR 142, cephalic presentation. US shows normal anatomy, female fetus. Genetics negative. Anatomy scan next week at [facility], FU ~24w with glucose screening, routine care. 03/15/25 -?-?-?-?-?-?-?-?-?-?-?-?- 24w 6d 84.368 kg 125/84 occasional cephalic 25 158 active - She reports an increase in vaginal discharge that is white with a slight yellow tinge. - Denies foul odor, itching, or pain a ssociated with the discharge. - Wonders if the discharge could be re lated to vitamins. - She mentions a history of tachycardia and monitors her blood pressure at home. - Reports one recent episode where her heart rate was 120 while resting, but blood pressure remained normal. - Had an EKG performed about a year ag o by cardiology with normal results. - She denies symptomatic palpitations. - Patient had a yeast infection about a year ago that was treated with Fluconazole. - Start aspirin daily until delivery for preeclampsia prevention due to family history of hypertension - Treat bacterial vaginosis with topical cream (avoid oral tablets) - Schedule fasting 1-hour glucose tolera nce test - Follow-up appointment in 4 weeks, then transition to every 2 weeks thereafter 04/21/25 -?-?-?-?-?-?-?-?-?-?-?-?- 30w 1d 87.203 kg 127/82 occasional cephalic 31 160 active - One-hour glucose tolerance test result of 183 mg/dL, leading to a diagnosis of gestational diabetes. - Patient reports a history of pre-diabe mirella since childhood. - Previously treated with metformin, b ut not currently on any medication. - Prior to , experienced low fasting glucose levels (70s-80s mg/dL) and post-meal spikes (160-180 mg/dL). - Reports active movement, particu larly at night. - Mentions having vaginal discharge. - Notes occasional frothy appearance of urine. - Denies any history of diabetes. - Start low-dose metformin for gestational diabetes management - Provide glucose meter and test strips for blood sugar monitoring - Administer Rhogam shot today - Schedule next appointment in 2 weeks - Plan for A1C and CBC tests at next oren ointment - Prescribe vaginal cream for discharge - Administer Tdap vaccine with Rhogam to day - Recommend flu and RSV vaccines when av ailable - Send prescription to [facility] on [address] 05/03/25 -?-?-?-?-?-?-?-?-?-?-?-?- 31w 6d 86.636 kg 130/84 occasional cephalic 32 145 active - She was started on metformin at the last visit for gestational diabetes management. - Patient reports possible episodes of r eactive hypoglycemia after taking metformin: - Experienced low blood sugar after ta niki medication - Ate cereal to raise glucose levels - Fasting blood glucose levels: - Generally within normal range - Highest reported fasting glucose was 99 mg/dL - Post-prandial glucose: - Reports a 2-hour post-prandial gluco se of 147 mg/dL after eating two chicken sandwiches - Current metformin regimen: - Taking 500 mg once daily - movement: - Patient believes the baby has change d position - Feels increased pressure in upper ab domen - Urinary symptoms: - Reports frequent urination, approxim ately every 1.5 hours - Describes feeling of bladder fullnes s - Experiences sensation of heaviness w hen waking at night - Denies any other significant symptoms or concerns - Hold metformin for a week, then resume taking it with lunch - Monitor for hypoglycemia; if it contin ues, discontinue metformin - Telephone appointment scheduled for xt Thursday to review glucose logs - A1c test ordered, can be done anytime (non-fasting) - Continue monitoring position; ul trasounds to be performed at each visit - Referral for conservation enforcement officer [facility] has been sent and patient has been contacted - Follow-up in-person appointment in 2 w [facility] 05/08/25 -?-?-?-?-?-?-?-?-?-?-?-?- 32w 4d occasional cephalic 34 - María Chaparro is a female presenting for a televisit for glucose logs and A1c results. - She reports her 2-hour glucose was 76 without metformin, having not taken metformin for 2 days. - She continues to have issues with not being hungry early in the morning and inconsistent eating patterns. - She reports a recent episode of fluid on her underwear with a small amount of white discharge. - Describes the discharge as a tiny am ount of white discharge surrounded by a larger [place] tribe of fluid. - Denies any associated cramping. - Episode appears to have been isolated and has stopped. - Discontinue metformin - If vaginal discharge with fluid contin ues, present to labor and delivery for ultrasound and amniotic fluid assessment - Continue consistent eating patterns - Follow up at scheduled in-person appoi ntment next week 05/19/25 -?-?-?-?-?-?-?-?-?-?-?-?- 34w 1d 87.09 kg 128/84 occasional cephalic 35 155 active - She reports the baby is active with no contractions or issues. - She had a [facility]'s ultrasound on 05/17/2025 showing single fetus at 33 weeks 6 days, cephalic presentation, estimated weight 2466 grams (5 pounds 7 ounces, 66th percentile), normal amniotic fluid index, and posterior placenta. - She notes discrepancy in amniotic flui d measurements between different facilities. - [facility] measured FELECIA at 14 .6 on recent visit - Another facility measured 5.5 on Thu, which she questions given the specialist measurement - Previous measurement was 6.4 - She continues working and plans to wor k until approximately 37 weeks gest ation. - She denies heavy lifting at work and r eports she can manage her current workload. - She received Rhogam at 28 weeks but trinh s not yet received Tdap vaccine. - She has not received flu shot or RSV vaccine yet. - Administer Tdap vaccine today - Patient to obtain flu shot and RSV vac cine at pharmacy (can be given together) - Continue weekly visits, next appointment in 2 weeks - Plan for patient to work until 37 week s gestation - Provider to personally measure amnioti c fluid index at next Thursday's appointment 06/01/25 -?-?-?-?-?-?-?-?-?-?-?-?- 36w 0d 88.564 kg 134/80 occasional cephalic 36 165 active - She has slightly elevated blood pressures today at 134/80 mmHg. - She has gestational diabetes mellitus and was previously on metformin, but discontinued the medication due to low glucose levels. - She reports her blood sugars have been okay with nothing super high since stopping metformin. - She is Rh-negative. - She had an amniotic fluid index (FELECIA) measurement yesterday which was 10, with the previous measurement being 12. - Hold metformin due to low glucose levels - GBS culture to be performed via self-s wab between 35-37 weeks - FELECIA monitoring - recent measurements a t labor and delivery have been acceptable (10-12), no repeat needed today given yesterday's measurement - Continue glucose monitoring 06/08/25 -?-?-?-?-?-?-?-?-?-?-?-?- 37w 0d 89.868 kg 122/85 occasional cephalic 37 145 active - She reports constant pelvic pressure that is not like contractions. - She experiences intermittent cramping that comes and goes. - She has noticed increased white vagina l discharge. - She reports losing some mucus plug fiona t is jelly-like, sticky, and stretchy. - She denies bleeding or leaking of ronnie r fluid. - Yesterday she noticed sticky fluid fro m her breast, consistent with early . - Baby remains active with good mo vement. - She is currently working but plans to finish next week at 38 week s gestation. - Check for cervical dilation at next visit - Obtain GBS culture results when [employer] portal is available - Patient to finish work at 38 weeks ( xt week is last week) - Return to Labor and Delivery anytime f or increased contractions or pressure - Follow up in one week - Have hospital bag ready and transporta tion arranged 06/22/25 -?-?-?-?-?-?-?-?-?-?-?-?- 39w 0d 89.584 kg 123/83 occasional cephalic 38 155 active - She reports mild cramping that feels similar to period cramps. - She denies having contractions yet, de scribing only the mild cramping sensation. - Yesterday after anesthesia, she experi enced something similar to contractions starting from the top and traveling down. - During this time, the baby was super active for maybe an hour straight. 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 - She has not been checked for cervical dilation at all during this . - Schedule induction for 41 weeks as backup in case patient does not go into labor spontaneously - Return for one-week follow-up appointm ent - Membrane sweep performed during today' s visit 06/27/25 -?-?-?-?-?-?-?-?-?-?-?-?- 39w 5d 89.471 kg 135/80 occasional cephalic 40 161 active - She reports no contractions currently. - She denies fever. - She reports no vaginal bleeding. - She continues taking aspirin as prescr ibed and inquired about continuing it until delivery. - She reports slightly elevated blood pr essure today, noting that her blood pressure tends to be higher on the right arm versus the left arm. - During NST visits, blood pressure ty pically normalizes after checking three times. - She experiences numbness and tingling in her arm, which she attributes to carpal tunnel symptoms. - She denies concerns about decreased fe julianne movement. - She denies any leaking of fluid. - Patient has scheduled NST appointments (tomorrow and next ay). - Induction scheduled for July 08 at 41+ weeks gestation - Patient to call at 8 AM on induction d ate for room assignment and arrival time - Continue aspirin until delivery - Monitor blood pressure at next NST oren ointment tomorrow; if her BP exceeds 140/100, she will need to induce sooner - Continue weekly NST appointments - Patient instructed to come to hospital for contractions every 5 minutes or closer, decreased movement, leaking fluid, or bleeding - Recheck blood pressure on left arm due to elevated reading on right arm RASHAAD Calculator Estimated Delivery Date Method Current WG Current Estimate 06/29/25 LMP (Certain) 45w 0d Specific Issue/Plans Rh-. Will need RhoGAM. Notes Visit Date: 05/03/25 Last Updated by: Miguel Amos MD - Ultrasound: - position: Head down, not engaged in lower pelvis Visit Date: 01/04/25 Last Updated by: Sandra Seals (OB Clinic)MD NIPT reviewed with patient and father the baby 46XX Office Procedures [facility] LOC & Office Proc's Nursing/Assessment Patient Status: Established Patient OB Clinic Nursing Assessment: Medication Reconciliation, Update PMH in EMR and Vital Signs OB Clinic Coordination of Care: Consent,records obtained, informed consent, Education Simp Pt/Fam, Lab and Imaging orders, Results/Orders obtained and Staff clarify orders Special Needs: Heart tones Established Patient Charge Established Patient Point Assignment: 110 Established Patient Point Charge: EP Level 3 (80-115) Assessment & Plan Diagnosis / Problem List (1) Supervision of high risk , unspecified, third trimester: Status: Acute (2) Gestational diabetes mellitus treated with oral hypoglycemic therapy: Status: Acute Plan Problem List - Carpal tunnel syndrome - Hypertension in Assessment Patient is at 41 weeks gestation with elevated blood pressure reading of 135/95 on right arm, which normalized to acceptable range when rechecked on left arm. Patient reports numbness and tingling in right arm consistent with carpal tunnel syndrome secondary to -related fluid retention. heart rate is normal at 161 bpm. Patient denies contractions, fever, bleeding, or decreased movement. Patient continues on aspirin therapy. Plan - Induction scheduled for July 08 at 41+ weeks gestation - Patient to call at 8 AM on induction date for room assignment and arrival time - Continue aspirin until delivery - Monitor blood pressure at next NST appointment tomorrow; if her BP exceeds 140/100, she will need to induce sooner - Continue weekly NST appointments - Patient instructed to come to hospital for contractions every 5 minutes or closer, decreased movement, leaking fluid, or bleeding - Recheck blood pressure on left arm due to elevated reading on right arm 1. Progress Reviewed gestational age at 41 weeks, growth, and heart rate of 161 bpm (normal). Planned induction date for July 08 if spontaneous labor does not occur. Patient continuing weekly NST appointments. 2. Instructed patient to monitor movements and report decreases immediately, along with any concerns about decreased activity. 3. Testing Patient continuing with scheduled NST (non-stress test) appointments - next one tomorrow and then weekly. Monitoring well-being in post-term . 4. Preeclampsia Precaution Blood pressure monitored during visit (135/95 on left arm after recheck). Educated patient that if her blood pressure crosses 140/100, earlier induction may be necessary. Patient to continue blood pressure monitoring at NST appointments. 5. Labor Precautions Reviewed labor signs: contractions every 5 minutes or closer warrant hospital admission. Instructed her to seek immediate care for any leaking, bleeding, or regular contractions. Patient advised not to hesitate coming to hospital even if sent home after evaluation. 6. Lifestyle and Delivery Preparation Patient continuing aspirin therapy safely until delivery. Provided induction instructions and direct hospital unit number. Patient to call at 8 AM on July 08 for room assignment. Discussed carpal tunnel symptoms as normal -related fluid retention that will resolve after delivery. 7. Psychosocial Support Patient appears comfortable with her delivery plan. Provider will be present at hospital during induction weekend for continuity of care.
== END 2025-06-27 11:57 | disposition home or self-care (01) ==
PROVIDERS: Supervising Provider Obstetrics & Gynecology; Visit Provider Obstetrics & Gynecology
DX: O09.893 Supervision of other high risk pregnancies, third trimester (principal); O24.415 Gestational diabetes mellitus in pregnancy, controlled by oral hypoglycemic drugs; O13.3 Gestational [pregnancy-induced] hypertension without significant proteinuria, third trimester; O99.353 Diseases of the nervous system complicating pregnancy, third trimester; G56.01 Carpal tunnel syndrome, right upper limb; Z3A.39 39 weeks gestation of pregnancy; Z67.41 Type O blood, Rh negative
CPT/HCPCS: 99213; G0463

== ENCOUNTER 2025-06-28 09:39 | Outpatient (RCR) | payer BC, SELFPAY ==
--- NOTE | 2025-05-10 10:11 | XR_ITS ---
Examination: Biophysical profile, ultrasound Date and time of exam: May 10, 2025 1130 hours INDICATIONS: Diagnosis high risk Technique: Multiple transabdominal sonographic images of the pelvis abdomen obtained. Attention is directed to the breathing movement, gross body movement, amniotic fluid volume and tone. Findings: Amniotic fluid index 6.4 cm Total biophysical profile is 8 of 8. breathing movement is 2. Gross body movement is 2. tone is 2. Qualitative amniotic fluid volume is 2 Impression: Biophysical profile is 8 of 8.
[2025-05-10 12:21] VITALS: BP 113/84; PULSE 90; RESP 16; TEMP 36.8
--- NOTE | 2025-05-17 13:52 | XR_ITS ---
Examination: Biophysical profile, ultrasound Date and time of exam: May 17, 2025, 1415 hours INDICATIONS: Diagnosis high risk Technique: Multiple transabdominal sonographic images of the pelvis abdomen obtained. Attention is directed to the breathing movement, gross body movement, amniotic fluid volume and tone. Findings: Amniotic fluid index 5.5 cm Total biophysical profile is 8 of 8. breathing movement is 2. Gross body movement is 2. tone is 2. Qualitative amniotic fluid volume is 2 Impression: Biophysical profile is 8 of 8.
[2025-05-17 14:38] VITALS: BP 117/68; PULSE 103; RESP 16; TEMP 36.8
--- NOTE | 2025-05-24 09:43 | XR_ITS ---
Examination: Biophysical profile, ultrasound Date and time of exam: May 24, 2025, 1010 hours INDICATIONS: Diagnosis high risk Technique: Multiple transabdominal sonographic images of the pelvis abdomen obtained. Attention is directed to the breathing movement, gross body movement, amniotic fluid volume and tone. Findings: Amniotic fluid index 12.6 cm Total biophysical profile is 8 of 8. breathing movement is 2. Gross body movement is 2. tone is 2. Qualitative amniotic fluid volume is 2 Impression: Biophysical profile is 8 of 8.
[2025-05-24 10:36] VITALS: BP 115/86; PULSE 100; RESP 16; TEMP 36.8
--- NOTE | 2025-05-31 09:40 | XR_ITS ---
Examination: Biophysical profile, ultrasound Date and time of exam: May 31, 2022, 0944 hours INDICATIONS: High risk diagnosis Technique: Multiple transabdominal sonographic images of the pelvis abdomen obtained. Attention is directed to the breathing movement, gross body movement, amniotic fluid volume and tone. Findings: Amniotic fluid index 10.3 cm Total biophysical profile is 8 of 8. breathing movement is 2. Gross body movement is 2. tone is 2. Qualitative amniotic fluid volume is 2 Impression: Biophysical profile is 8 of 8.
[2025-05-31 10:49] VITALS: BP 114/81; PULSE 102; RESP 162
--- NOTE | 2025-06-07 09:42 | XR_ITS ---
Examination: Biophysical profile, ultrasound Date and time of exam: June 07, 2025, 0955 hours INDICATIONS: Diagnosis gestational diabetes, high risk , pelvic pressure beginning 1 week ago Technique: Multiple transabdominal sonographic images of the pelvis abdomen obtained. Attention is directed to the breathing movement, gross body movement, amniotic fluid volume and tone. Findings: Amniotic fluid index 10.1 cm Total biophysical profile is 8 of 8. breathing movement is 2. Gross body movement is 2. tone is 2. Qualitative amniotic fluid volume is 2 Impression: Biophysical profile is 8 of 8.
[2025-06-07 10:18] VITALS: BP 119/82; PULSE 81; RESP 16; TEMP 36.9
--- NOTE | 2025-06-14 09:46 | XR_ITS ---
Examination: Biophysical profile, ultrasound Date and time of exam: 06/14/2025, 9:45 a.m. INDICATION: Weekly NST and BPP due to GDM and high risk COMPARISON: Ultrasound BPP 06/07/2025 Technique: Multiple transabdominal sonographic images of the pelvis abdomen obtained. Attention is directed to the breathing movement, gross body movement, amniotic fluid volume and tone. Findings: Single live IUP in cephalic position Total biophysical profile is 8 of 8. breathing movement is 2. Gross body movement is 2. tone is 2. Qualitative amniotic fluid volume is 2 FELECIA: 9.9 cm. FHR: 143 bpm. Impression: Biophysical profile is 8 of 8 as before.
[2025-06-14 10:10] VITALS: BP 122/89; PULSE 92; RESP 16; TEMP 36.9
--- NOTE | 2025-06-21 09:41 | XR_ITS ---
Examination: Biophysical profile, ultrasound Date and time of exam: June 21, 2025, 1015 hours INDICATIONS: High risk diagnosis, diagnosis gestational diabetes Technique: Multiple transabdominal sonographic images of the pelvis abdomen obtained. Attention is directed to the breathing movement, gross body movement, amniotic fluid volume and tone. Findings: Amniotic fluid index 13.7 cm Total biophysical profile is 8 of 8. breathing movement is 2. Gross body movement is 2. tone is 2. Qualitative amniotic fluid volume is 2 Impression: Biophysical profile is 8 of 8.
[2025-06-21 10:33] VITALS: BP 117/91; PULSE 103; RESP 16; TEMP 36.7
--- NOTE | 2025-06-28 09:47 | XR_ITS ---
Examination: Biophysical profile, ultrasound Date and time of exam: June 28 2025, 1013 hours INDICATIONS: High risk , diagnosis gestational diabetes Technique: Multiple transabdominal sonographic images of the pelvis abdomen obtained. Attention is directed to the breathing movement, gross body movement, amniotic fluid volume and tone. Findings: Amniotic fluid index 8.2 cm Total biophysical profile is 8 of 8. breathing movement is 2. Gross body movement is 2. tone is 2. Qualitative amniotic fluid volume is 2 Impression: Biophysical profile is 8 of 8.
[2025-06-28 10:36] VITALS: BP 114/87; PULSE 79; RESP 16; TEMP 36.7
[2025-06-29 23:41] VITALS: RESP 100; RESP 16; TEMP 37.1; BMI 33.6
== END 2025-06-28 23:59 | disposition home or self-care (01) ==
LOC: S4S1 09:39
PROVIDERS: Referring Provider Obstetrics & Gynecology; Visit Provider Obstetrics & Gynecology
DX: O24.415 Gestational diabetes mellitus in pregnancy, controlled by oral hypoglycemic drugs (principal); O09.93 Supervision of high risk pregnancy, unspecified, third trimester; Z3A.39 39 weeks gestation of pregnancy
CPT/HCPCS: 59025; 76819

== ENCOUNTER 2025-06-29 23:31 | Observation (INO) | payer BC, SELFPAY ==
[2025-06-29 23:38] VITALS: BP 125/88; PULSE 75; RESP 100; RESP 16; TEMP 37.1; BMI 33.6
[2025-06-29 23:53] VITALS: BP 125/88; PULSE 75
[2025-06-30 01:23] VITALS: BP 113/77; PULSE 74
[2025-06-30 02:51] VITALS: BP 130/77; PULSE 78
== END 2025-06-30 03:20 | disposition home or self-care (01) ==
PROVIDERS: Admitting Provider Obstetrics & Gynecology; Visit Provider Obstetrics & Gynecology
DX: O46.90 Antepartum hemorrhage, unspecified, unspecified trimester (principal); Z3A.00 Weeks of gestation of pregnancy not specified
CPT/HCPCS: 59025; 59899

== ENCOUNTER 2025-06-30 06:59 | Inpatient (IN) | payer BC, SELFPAY ==
[2025-06-30] VITALS (116 sets, daily range): BP systolic 111–169; BP diastolic 63–120; PULSE 69–164; RESP 16–98; TEMP 36.6–36.9; O2SAT 85–100; BMI 32.9
[2025-06-30 09:33] LABS: Basophils # (Auto) 0.0 Thou/mm3 (0.0-0.2); Basophils % (Auto) 0 % (0-2.5); Eosinophils # (Auto) 0.0 Thou/mm3 (0.0-0.5); Eosinophils % (Auto) 0 % (0-10); Hematocrit 35.5 % (36.0-46.0); Hemoglobin 12.3 g/dL (12.0-16.0); Immature Granulocytes Auto 0.05 Thou/mm3 (0.00-0.00); Lymphocytes # (Auto) 1.7 Thou/mm3 (1.0-4.8); Lymphocytes % (Auto) 15 % (10-50); Mean Corpuscular HGB Conc 34.6 g/dl (31.0-37.0); Mean Corpuscular Hemoglobin 32.5 pg (25.0-35.0); Mean Corpuscular Volume 94 fL (80-100); Monocytes # (Auto) 0.5 Thou/mm3 (0.0-0.8); Monocytes % (Auto) 4 % (0-12); Neutrophils # (Auto) 9.5 Thou/mm3 (1.8-7.7); Neutrophils % (Auto) 80 % (37-80); Nucleated Red Blood Cell # 0.00 Thou/mm3 (0.00-0.00); Nucleated Red Blood Cell % 0 /100 WBC (0); Platelet Count 184 Thou/mm3 (140-440); RDW Standard Deviation 44.3 fL (36.4-46.3); Red Blood Count 3.79 Miln/mm3 (4.00-5.20); White Blood Count 11.9 Thou/mm3 (3.6-11.0)
[2025-06-30 10:09] LABS: Syphilis Nonreactive (Nonreactive)
[2025-06-30] MEDS: OXYTOCIN in NS 20 units 20 UNIT/1,000 ML BAG 125 UNIT IV (14:48)
[2025-06-30] MEDS: BENZO/LANO/ALOE (Dermoplast) 60 GM CAN 1 SPRAY TOP (15:04)
[2025-06-30] MEDS: IBUPROFEN TAB 400 MG TABLET 800 MG PO (15:04)
--- NOTE | 2025-06-30 17:35 | ESHP_ITS ---
Documentation for date of: 06/30/25 OB Labor/Induct. HPI History of Present Illness Chief complaint: Active labor : 1 Para: 0 Term pregnancies: 0 pregnancies: 0 Living children: 0 History of Abortions: Spontaneous and Elective: 0 History of Vaginal deliveries: 0 History of sections: No History of : No RASHAAD: 06/29/25 Gestational Age (weeks): 40 Gestational Age (days): 1 History of present illness: Patient is a 24-year-old G1, P0 at 40 and 1 sevenths weeks who presented in active labor. She was sent home last night at 2 cm she re-presented 3 cm walked for an hour progressed to 4 cm and was admitted. Patient had epidural placed on admission. care is uncomplicated with Dr. Amos. She denied leakage of fluids or heavy vaginal bleeding. History of Present Dating criteria: LMP confirmed by 2nd trimester US Adequate Care: Yes Obstetrical complications: none Medical complications: none Labs Maternal Blood Type: O Neg Labs: Positive: Rubella Titre, Negative: RPR, Hepatitis B, HIV, Chlamydia, Gonorrhea and Group Beta Strep and Unknown: Herpes Type 1, Herpes Type 2 and Covid-19 Past Medical History Surgical History SURGICAL: Negative Section Past Medical History Comments PMH COMMENT: Patient denies any significant past medical history Meds Home Medications and Allergies Home Medications ?Medication ?Instructions ?Recorded ?Confirmed ?Type vits no.126-ferrous fum 1 tab PO QDAY 5 06/30/25 History 28 mg iron-folic acid 800 mcg tablet (Classic ) Allergies Allergy/AdvReac Type Severity Reaction Status Date / Time No Known Allergies Allergy Verified 06/30/25 00:15 OB Exam Physical Exam Vital signs: Temp Pulse Resp BP Pulse Ox 98.0 F 88 18 132/66 H 98 06/30/25 15:00 06/30/25 16:41 06/30/25 15:00 06/30/25 16:41 06/30/25 14:45 Detailed Labor and Delivery Exam Dilation (cm): 4 Effacement (%): 90 Cervix position: anterior station: -1 Consistency: soft Presentation: Vertex Membranes: intact Amniotic fluid: clear monitor accelerations: 15x15 monitor decelerations: None human resources hr representative variability: Moderate (07-04) Contraction frequency (min): Every 2 to 3 minutes Contraction intensity: Strong OB Results Labs 06/30/25 09:00 Labs: Short CBC 06/30/25 Range/Units 09:00 WBC 11.9 H (3.6-11.0) Thou/mm3 Hgb 12.3 (12.0-16.0) g/dL Hct 35.5 L (36.0-46.0) % Plt Count 184 (140-440) Thou/mm3 OB Assessment & Plan Assessment and Plan (1) Supervision of high risk , unspecified, third trimester: Status: Acute Assessment and plan: Patient presents in active labor. Okay for epidural. Anticipate . Additional Plan Induction method: none Plan: anticipate NVD
--- NOTE | 2025-06-30 17:40 | PD.LDDELS ---
Data ([place]) Data Hx Section: No Maternal Blood Type: O Neg Rubella Titre: Positive RPR: Non-reactive Labs: Negative: RPR, Hepatitis B, HIV, Chlamydia, Gonorrhea and Group Beta Strep : 1 Term: 0 : 0 Livin Abortions: Spontaneous & Theraputic: 0 Delivery Data ([place]) Labor Data Initiation of labor: Spontaneous Induction/Augmentation Agent: None ROM date: 06/30/25 ROM time: Amniotic membrane rupture type: Spontaneous Amniotic fluid description: Moderate Meconium Delivery Data EDC: 06/29/25 EDC calculated by:: LMP/early US confirmation Date of arrival to unit: 06/30/25 Onset of labor date: 06/30/25 Onset of labor time: : Complete dilation date: 06/30/25 Complete dilation time: 14:20 delivery date: 06/30/25 [place] delivery time: 14:41 Gestational age (weeks): 40 Gestational age (days): 1 Placenta delivery date: 06/30/25 Placenta delivery time: 14:48 Stage 1 total time: Labor - Stage 1 Duration 2 hours and 55 minutes Delivered by: [facility] ([facility]) Delivery nurse: RUSS CERVANTES RN [place] nurse: MARYLOU CARUSO RN Data Processing Clerk at delivery: No Support person(s) at delivery: FOB, SISTER OF PATIENT Other staff at delivery: RICHARD LYNNE RN Delivery Method Delivery method: Normal Vaginal Delivery Presentation: Vertex position: OA Anesthesia Type Anesthesia Type: Epidural Delivery Room Medications Delivery room medications: Pitocin 20 u IV Placenta Placenta delivery description: Spontaneous Cord blood sent to lab: Yes cord blood collection: Cord Blood Type Episiotomy Episiotomy description: None Lacerations #1: Perineal: 2nd degree Perineal repair Sutures used for repair: 3.0 Chromic EBL Estimated blood loss (ml): 150 Umbilical Cord cord description: 3 Vessels and Nuchal Cord (Loose nuchal cord x 2) Additional Procedures The patient is a 24-year-old with all care uncomplicated with Dr. Amos at the [facility] who presented to labor and delivery the evening of 06/29/2025 in early labor. She was sent home at 2 cm. She presented today at 06/30/2025 and was 3 cm dilated. She ambulated for an hour and progressed to 4 cm dilation. She was admitted and had labor epidural placed. She went on to progress to complete without the aid of Pitocin by 1420. The baby started having some variable decelerations with contractions. She began pushing secondary to the decelerations. She pushed for 21 minutes with me at the bedside the entire time, delivering a liveborn female at 1441. Findings: Liveborn female in the SURYA presentation with a loose nuchal cord x 2. And thick meconium. Apgars were 8 and 9. Weight was 3560 g or 7 pounds 14 ounces. As the baby was vigorous at , the baby was placed immediately on the mother's chest and delayed cord clamping was performed for 3 minutes. The cord was then clamped and cut and the baby stayed on mother's chest. The placenta was complete spontaneous grossly normal delivering approximately 5 minutes after the baby delivered. The patient sustained a second-degree perineal laceration repaired in a standard fashion using 3-0 chromic. Complications were none. Condition: Both mom and were in stable condition in the delivery room. EBL was 150 cc. Complications Complications: None Data ([place]) [place] Data order: 1 [place]'s gender: Female Identification band number: [id number] weight (gms): 3560 g Weight (pounds): 7 lbs and 13.6 ozs 1 minute: 8 5 minutes: 9
[2025-06-30 23:17] LABS: Basophils # (Auto) 0.0 Thou/mm3 (0.0-0.2); Basophils % (Auto) 0 % (0-2.5); Eosinophils # (Auto) 0.0 Thou/mm3 (0.0-0.5); Eosinophils % (Auto) 0 % (0-10); Hematocrit 31.3 % (36.0-46.0); Hemoglobin 11.0 g/dL (12.0-16.0); Immature Granulocytes Auto 0.07 Thou/mm3 (0.00-0.00); Lymphocytes # (Auto) 2.1 Thou/mm3 (1.0-4.8); Lymphocytes % (Auto) 15 % (10-50); Mean Corpuscular HGB Conc 35.1 g/dl (31.0-37.0); Mean Corpuscular Hemoglobin 32.7 pg (25.0-35.0); Mean Corpuscular Volume 93 fL (80-100); Monocytes # (Auto) 1.0 Thou/mm3 (0.0-0.8); Monocytes % (Auto) 7 % (0-12); Neutrophils # (Auto) 10.9 Thou/mm3 (1.8-7.7); Neutrophils % (Auto) 78 % (37-80); Nucleated Red Blood Cell # 0.00 Thou/mm3 (0.00-0.00); Nucleated Red Blood Cell % 0 /100 WBC (0); Platelet Count 171 Thou/mm3 (140-440); RDW Standard Deviation 44.2 fL (36.4-46.3); Red Blood Count 3.36 Miln/mm3 (4.00-5.20); White Blood Count 14.1 Thou/mm3 (3.6-11.0)
[2025-07-01 00:03] VITALS: BP 126/81; PULSE 83; RESP 16; TEMP 36.9; O2SAT 97
[2025-07-01 03:52] VITALS: BP 129/86; PULSE 84; RESP 14; TEMP 36.9; O2SAT 96
--- NOTE | 2025-07-01 07:43 | PD.LDPPPRG ---
Subjective Subjective Interval history: The patient is a 24-year-old -0-0-1 status post vaginal delivery 06/30/25 at approximately 1500. This morning the patient is resting in bed working on breast-feeding. She states her perineal tear is throbbing. She has not tried a lot of pain medication lately for it. She is voiding, tolerating a general diet, and ambulating. Her bleeding is minimal. Her predelivery hemoglobin is 12.3 postdelivery is 11. Patient would like to go home later today if she is able. Exam Vital Signs Temp Pulse Resp BP Pulse Ox O2 Del Method 98.4 F 84 14 129/86 H 96 Room Air 07/01/25 03:52 07/01/25 03:52 07/01/25 03:52 07/01/25 03:52 07/01/25 03:52 07/01/25 03:52 Narrative Exam Patient is alert and oriented x 3 in no apparent distress. Fundus is firm at umbilicus extremities show no significant edema or erythema. Objective Labs 06/30/25 22:58 Labs: Laboratory Results - last 24 hr 06/30/25 06/30/25 06/30/25 09:00 22:58 23:21 WBC 11.9 H 14.1 H RBC 3.79 L 3.36 L Hgb 12.3 11.0 L Hct 35.5 L 31.3 L MCV 94 93 MCH 32.5 32.7 MCHC 34.6 35.1 RDW Std Deviation 44.3 44.2 Plt Count 184 171 Neut % (Auto) 80 78 Lymph % (Auto) 15 15 [place] % (Auto) 4 7 Eos % (Auto) 0 0 Baso % (Auto) 0 0 Neut # (Auto) 9.5 H 10.9 H Lymph # (Auto) 1.7 2.1 [place] # (Auto) 0.5 1.0 H Eos # (Auto) 0.0 0.0 Baso # (Auto) 0.0 0.0 Immature Gran # (Auto) 0.05 H 0.07 H Absolute Nucleated RBC 0.00 0.00 Immature Gran % 0 1 H Nucleated RBC % 0 0 Syphilis Serology Nonreactive Blood Type O Negative Rho(D) IG Studies Ready Antibody Screen POSITIVE Antibody Identification Anti-D from RhoGam Maternal Bleed Cancelled Negative Blood Bank Wristband ID Yes Assessment & Plan Problem List (1) Supervision of high risk , unspecified, third trimester: Status: Acute (2) care following vaginal delivery: Problem details: Discharge instructions given in occluding pelvic rest x 6 weeks. Follow-up in the clinic in 2 weeks for a check. Plan to discharge at 24 hours Status: Acute Time Spent With Patient Time: Total time spent is greater than 50% in coordination of care (as documented) at patient's floor/unit and/or counseling patient: Time with patient: less than 15 minutes
--- NOTE | 2025-07-01 07:51 | PD.LDDS ---
DS: Providers Provider Date of admission: 06/30/25 08:33 Primary care physician: Physician No Primary/Family Admitting Provider: Sandra Seals [facility] ([facility]) Attending Provider on Admission: Sandra Seals MD ([facility]) Consults: 06/30/25 16:28 Referral Routine Comment: Attending Provider on DC: Sandra Seals MD ([facility]) Discharging Provider: Sandra Seals MD ([facility]) Anticipated date of discharge: 07/01/25 DS: Diagnosis Discharge Diagnosis (1) Term delivered: Status: Acute Assessment & Plan: Discharge home day #1 in stable condition (2) care following vaginal delivery: Status: Acute Assessment & Plan: Patient doing well. Discharge instructions given. Problem List Completed Was Problem List Reviewed/Reconciled?: Yes Summary/Hosp Course Brief History: Patient is a 24-year-old G1, P0 at 40 and 1 sevenths weeks who presented in active labor. She was sent home last night at 2 cm she re-presented 3 cm walked for an hour progressed to 4 cm and was admitted. Patient had epidural placed on admission. care is uncomplicated with Dr. Amos. She denied leakage of fluids or heavy vaginal bleeding. Patient was admitted 06/30/2025. See history and physical for further details. Hospital course: Patient underwent an uncomplicated vaginal delivery around 1510 [id number]. Please see delivery note for further details. She had a second-degree perineal laceration. On day #1, patient was ambulating tolerating a general diet and voiding and taking pain medications by mouth. She was working on breast-feeding. She her predelivery hemoglobin is 12.3. Her postdelivery hemoglobin is 11. She was discharged home day #1 in stable condition. Peripartum Data Delivery Method: Normal Vaginal Delivery Episiotomy Description: None Laceration Description: see Delivery Summary complications: none Status at Discharge Cognitive/behavioral status at discharge: Patient is alert and orient x 3 in no apparent distress Functional status at discharge: independent ambulation Overall status at discharge: patient is progressing back to baseline Time Spent with Patient Time attestation: Total time spent providing and/or coordinating discharge services: Time spent: Less than 30 minutes Specific discharge activities: Pelvic rest x 6 weeks Exam Vital Signs Temp Pulse Resp BP Pulse Ox O2 Del Method 98.4 F 84 14 129/86 H 96 Room Air 07/01/25 03:52 07/01/25 03:52 07/01/25 03:52 07/01/25 03:52 07/01/25 03:52 07/01/25 03:52 Narrative Exam Patient is alert and orient x 3 no apparent distress. Fundus is firm at umbilicus nontender Extremities show no significant edema or erythema Discharge Plan Plan Patient Disposition: HOME (Self Care) Disposition Comment: Stable Patient condition on transfer: Stable Prescriptions/Referrals Prescriptions/Med Rec: New acetaminophen 325 mg Tablet 650 mg PO Q4H PRN (Reason: See Comments) Qty: 60 0RF hydrocodone-acetaminophen 5-325 mg Tablet 2 tab PO Q6HR MDD 4 PRN (Reason: Patient rated pain 9 to 10) Qty: 10 0RF ibuprofen 400 mg Tablet 800 mg PO Q8H PRN (Reason: See Comments) Qty: 60 0RF Continued Classic 28 mg iron- 800 mcg tablet 1 tab PO QDAY Discontinued aspirin 81 mg tablet 81 mg PO QDAY 90 Days Qty: 90 3RF (DME) Blood Glucose Test Strip See Rx Instructions .MEDSUPPLY Qty: 100 0RF Rx Instructions: As directed, 4 times a day (DME) blood-glucose meter Kit See Rx Instructions .MEDSUPPLY Qty: 1 0RF Rx Instructions: As directed, 4 times a day (DME) lancets 21 gauge misc See Rx Instructions .MEDSUPPLY Qty: 100 0RF Rx Instructions: As directed, 4 times a day Referrals: No Primary/Family,Physician [Primary Care Provider] Patient/Caregiver Discharge Instructions Discharge Activity: activity as tolerated Other Discharge Activity Instructions:: Pelvic rest x 6 weeks Other Discharge Diet Instructions: General diet as tolerated Education Materials: After a Vaginal , Breast Care After , : Caring for Yourself, Feel Healthy After Print Language: [place] Activity Restrictions/Additional Instructions: No intercourse tampons douching bathtubs x 6 weeks. Follow-up in clinic in 2 weeks. Call with heavy vaginal bleeding, fevers chills or severe depression. Stand Alone Forms: [facility] Award Info., Patient Portal Info Letter Discharge Order Discharge Orders: Discharge (Routine); Ordered 07/01/25 Ordered By: Sandra Seals ([facility]) Planned Discharge Date 07/01/25
[2025-07-01 08:00] VITALS: BP 125/85; PULSE 85; RESP 16; TEMP 36.2; O2SAT 98
[2025-07-01] MEDS: HYDROcodone/APAP 5/325 TABLET 1 TAB PO (08:33)
[2025-07-01 12:00] VITALS: BP 128/64; PULSE 81; RESP 16; TEMP 36.8; O2SAT 99
[2025-07-01 16:00] VITALS: BP 119/60; PULSE 78; RESP 16; TEMP 36.6; O2SAT 98
== END 2025-07-01 17:50 | disposition home or self-care (01) | DRG 807 ==
LOC: S4NX 23:48 → S4SX 23:48
PROVIDERS: Admitting Provider Obstetrics & Gynecology; Visit Provider Obstetrics & Gynecology
DX: O48.0 Post-term pregnancy (principal); O69.81X0 Labor and delivery complicated by cord around neck, without compression, not applicable or unspecified; O70.1 Second degree perineal laceration during delivery; O76 Abnormality in fetal heart rate and rhythm complicating labor and delivery; O77.0 Labor and delivery complicated by meconium in amniotic fluid; Z37.0 Single live birth; Z3A.40 40 weeks gestation of pregnancy
CPT/HCPCS: 36415; 85025; 85461; 86780; 86850; 86870; 86900; 86901; 94762; J2590; J2790; J2795; J3010; A9270

== ENCOUNTER 2025-07-25 10:01 | Outpatient (AMB) | payer BC, SELFPAY ==
[2025-07-25 10:21] VITALS: BP 128/88; PULSE 104; RESP 20; TEMP 36.4; O2SAT 96; BMI 29.7
--- NOTE | 2025-07-25 10:23 | AMBOBPPN_ITS ---
Vital Signs 07/25/25 10:21 07/25/25 10:24 Height 1.65 m Height Method Stated Weight 80.91 kg Weight Measurement Method Standing Scale BMI 29.7 BP 128/88 H 128/88 H Blood Pressure Source Automatic Cuff Blood Pressure Location Left Upper Arm Position Sitting Respiration 20 20 Pulse 104 H 104 H Pulse Source Monitor Temp 97.6 F 97.6 F Temp Source Oral Pulse Oximetry (%) 96 96 Oxygen Delivery Method Room Air Allergies/Home Meds Allergies & Medications Allergies No Known Allergies Allergy (Verified 08/07/25 10:43) Medication Reconciliation vits no.126-ferrous fum 28 mg iron-folic acid 800 mcg tablet (Classic ) 1 tab PO QDAY 12/06/24 [History Confirmed 08/07/25] acetaminophen 325 mg tablet 650 mg (2 x 325 mg) PO Q4H PRN See Comments #60 tabs 07/01/25 [Rx Confirmed 08/07/25] hydrocodone 5 mg-acetaminophen 325 mg tablet 2 tab PO Q6HR PRN Patient rated pain 9 to 10 #10 tabs 07/01/25 [Rx Confirmed 08/07/25] ibuprofen 400 mg tablet 800 mg (2 x 400 mg) PO Q8H PRN See Comments #60 tabs 07/01/25 [Rx Confirmed 08/07/25] Intake Visit Data Collection New Patient or Established: Established Patient (seen at [facility] within 3 years) Reason for Visit:: FOLLOW UP Seen by Clinical Staff ONLY (RN/MA): 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: No Do You Feel Safe at Home: Yes Authorities Contacted: N/A PCP or OBGYN visit in last 3 months: Yes Hx Now: No Are you currently on any form of Control: No Pain Present Currently: No Pain Scale Used: Maya-Hall/Numerical Pain scale:: 0 Smoking Status Smoking Status: Never smoker Immunizations Flu Vaccine in the Last 12 Months: Yes Flu Vaccine Exclusion Criteria: Already 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: Past Medical History Past Medical History: No Hx Neurological Disorders, Yes Hx Cardiac Disorders (hx tachycardia), No Hx Gastrointestinal Disorders, No Hx Renal Disease, No Hx Diabetes Mellitus Type 1 and No Hx Diabetes Mellitus Type 2 Questionnaires Covid-19 Vaccine Questionnaire Has patient been vacinated for Covid-19 Have you been vacinated for Covid-19: Yes Social History Living Situation History Lives With: Family Housing: House Tobacco History Smoking Status: Never smoker Second Hand Smoke Exposure: No Alcohol History Alcohol Intake: Never Domestic Abuse History Do You Feel Safe at Home: Yes EPDS - PP Depression Screening [place] Pospartum Depression Screen I have been able to laugh and see the funny side of things: (0) As much as I always could I have looked forward with enjoyment to things: (0) As much as I ever did I have blamed myself unnecessarily when things went wrong: (0) No, never I have been anxious or worried for no good reason: (0) No, not at all I have felt scared or panicky for no very good reason: (0) No, not at all Things have been getting on top of me: (0) No, I have been coping as well as ever I have been so unhappy that I have had difficulty sleeping: (0) No, not at all I have felt sad or miserable: (0) No, not at all I have been so unhappy that I have been crying: (0) No, never The thought of harming myself has occurred to me: (0) Never EPDS completed yes Care OB Visit Log OB Flowsheet Initial Weight: Not Recorded Date -?-?-?-?-?-?-?-?-?-?-?-?- EGA Weight BP Alb Glu CTX Pres Fundal ht FHR Mov Dilation Station Effacement Hx Notes Visit Note 11/21/24 -?-?-?-?-?-?-?-?-?-?-?-?- 8w 4d 84.028 kg 127/84 165 21-year-old , presents for her first visit. experiencing mild nausea but denies vomi ting. She also notes breast tenderness. Uterine fibroids, diagnosed via ultrasou nd in November 2023. - Ultrasound (ThuNov 21 2024): - Gestational sac visualized - heart rate: 165 bpm - Fibroid noted outside of s ac. - Perform initial lab tests - Schedule NIPT (non-invasive t esting) at 9 weeks gestation for genetic screening and optional sex determination - Schedule 12-week ultrasound for offici al dating and anatomical survey - Schedule 20-week ultrasound for detail ed anatomical survey - Follow-up appointment in 7-10 days to review lab results and repeat ultrasound 12/06/24 -?-?-?-?-?-?-?-?-?-?-?-?- 10w 5d 83.461 kg 134/87 165 No CTX/LOF/VB. Reports good FM. No TRINH/VS, Epig/RUQ pain. Nausea peaked around 9w and has now subs ided. Denies vomiting or other concerns. Ultrasound: FHR 165 bpm. head, bod y, limbs visualized. Labs: Blood type O Rh-negative, Ab scree n negative, TSH 0.53. UA: epithelial cells present. STI panel and infectious labs negative. Rubella immune, varicella IgG positive. NIPT pending. Assessment & Plan: 10w5d IUP, reassuring findings, resolved early symptoms. Rh-negative. Schedule NT scan at [place] Provide [facility] form for NIPT Care Consultant on Rhogam if any bleeding occurs Continue routine care Reviewed labor signs and routine counseling No CTX/LOF/VB. Reports good FM. No TRINH/VS, Epig/RUQ pain. Nausea peaked around 9w and has now subs ided. Denies vomiting or other concerns. Ultrasound: FHR 165 bpm. head, bod y, limbs visualized. Labs: Blood type O Rh-negative, Ab scree n negative, TSH 0.53. UA: epithelial cells present. STI panel and infectious labs negative. Rubella immune, varicella IgG positive. NIPT pending. Assessment & Plan: 10w5d IUP, reassuring findings, resolved early symptoms. Rh-negative. Schedule NT scan at [place] Provide [facility] form for NIPT Care Consultant on Rhogam if any bleeding occurs Continue routine care Reviewed labor signs and routine counseling. Laboratory, Imaging, and Diagnostic Test Results - Date: 11/21/2024 - Blood group: O negative - Antibody screen: Negative - TSH: 0.53 - Urinalysis: Squamous epithelial cell s present, otherwise within normal limits - Syphilis serology: Negative - Gonorrhea: Negative - Chlamydia: Negative - Hepatitis B: Negative - Hepatitis C: Negative - HIV 1 and 2: Negative - Rubella: Immune - Trichomonas: Negative - Varicella zoster antibody: Positive - Ultrasound (12/06/2024): - Gestational age: 10 weeks 2 days - heart rate: 165 bpm - anatomy: Head, body, hands, and legs visualized 01/04/25 -?-?-?-?-?-?-?-?-?-?-?-?- 14w 6d 83.064 kg 124/84 140 No movement no bleeding no contractions 02/01/25 -?-?-?-?-?-?-?-?-?-?-?-?- 18w 6d 83.121 kg 120/84 142 active at 18w6d, RASHAAD 06/29/25. Denies TRINH/VC/epigastric pain. Starting to feel FM ( flickers ) on right side. Hx elevated HR, followed by cardiology. Family hx HTN (father). FHR 142, cephalic presentation. US shows normal anatomy, female fetus. Genetics negative. Anatomy scan next week at [facility] FU ~24w with glucose screening, routine care. 03/15/25 -?-?-?-?-?-?-?-?-?-?-?-?- 24w 6d 84.368 kg 125/84 occasional cephalic 25 158 active - She reports an increase in vaginal discharge that is white with a slight yellow tinge. - Denies foul odor, itching, or pain a ssociated with the discharge. - Wonders if the discharge could be re lated to vitamins. - She mentions a history of tachycardia and monitors her blood pressure at home. - Reports one recent episode where her heart rate was 120 while resting, but blood pressure remained normal. - Had an EKG performed about a year ag o by cardiology with normal results. - She denies symptomatic palpitations. - Patient had a yeast infection about a year ago that was treated with Fluconazole. - Start aspirin daily until delivery for preeclampsia prevention due to family history of hypertension - Treat bacterial vaginosis with topical cream (avoid oral tablets) - Schedule fasting 1-hour glucose tolera nce test - Follow-up appointment in 4 weeks, then transition to every 2 weeks thereafter 04/21/25 -?-?-?-?-?-?-?-?-?-?-?-?- 30w 1d 87.203 kg 127/82 occasional cephalic 31 160 active - One-hour glucose tolerance test result of 183 mg/dL, leading to a diagnosis of gestational diabetes. - Patient reports a history of pre-diabe mirella since childhood. - Previously treated with metformin, b ut not currently on any medication. - Prior to , experienced low fasting glucose levels (70s-80s mg/dL) and post-meal spikes (160-180 mg/dL). - Reports active movement, particu larly at night. - Mentions having vaginal discharge. - Notes occasional frothy appearance of urine. - Denies any history of diabetes. - Start low-dose metformin for gestational diabetes management - Provide glucose meter and test strips for blood sugar monitoring - Administer Rhogam shot today - Schedule next appointment in 2 weeks - Plan for A1C and CBC tests at next oren ointment - Prescribe vaginal cream for discharge - Administer Tdap vaccine with Rhogam to day - Recommend flu and RSV vaccines when av ailable - Send prescription to [facility] on [address] 05/03/25 -?-?-?-?-?-?-?-?-?-?-?-?- 31w 6d 86.636 kg 130/84 occasional cephalic 32 145 active - She was started on metformin at the last visit for gestational diabetes management. - Patient reports possible episodes of r eactive hypoglycemia after taking metformin: - Experienced low blood sugar after ta niki medication - Ate cereal to raise glucose levels - Fasting blood glucose levels: - Generally within normal range - Highest reported fasting glucose was 99 mg/dL - Post-prandial glucose: - Reports a 2-hour post-prandial gluco se of 147 mg/dL after eating two chicken sandwiches - Current metformin regimen: - Taking 500 mg once daily - movement: - Patient believes the baby has change d position - Feels increased pressure in upper ab domen - Urinary symptoms: - Reports frequent urination, approxim ately every 1.5 hours - Describes feeling of bladder fullnes s - Experiences sensation of heaviness w hen waking at night - Denies any other significant symptoms or concerns - Hold metformin for a week, then resume taking it with lunch - Monitor for hypoglycemia; if it contin ues, discontinue metformin - Telephone appointment scheduled for xt Thursday to review glucose logs - A1c test ordered, can be done anytime (non-fasting) - Continue monitoring position; ul trasounds to be performed at each visit - Referral for hospital monitor at the [facility] has been sent and patient has been contacted - Follow-up in-person appointment in 2 w [facility] 05/08/25 -?-?-?-?-?-?-?-?-?-?-?-?- 32w 4d occasional cephalic 34 - María Chaparro is a female presenting for a televisit for glucose logs and A1c results. - She reports her 2-hour glucose was 76 without metformin, having not taken metformin for 2 days. - She continues to have issues with not being hungry early in the morning and inconsistent eating patterns. - She reports a recent episode of fluid on her underwear with a small amount of white discharge. - Describes the discharge as a tiny am ount of white discharge surrounded by a larger [place] of fluid. - Denies any associated cramping. - Episode appears to have been isolated and has stopped. - Discontinue metformin - If vaginal discharge with fluid contin ues, present to labor and delivery for ultrasound and amniotic fluid assessment - Continue consistent eating patterns - Follow up at scheduled in-person appoi ntment next week 05/19/25 -?-?-?-?-?-?-?-?-?-?-?-?- 34w 1d 87.09 kg 128/84 occasional cephalic 35 155 active - She reports the baby is active with no contractions or issues. - She had a [facility]'s ultrasound on 05/17/2025 showing single fetus at 33 weeks 6 days, cephalic presentation, estimated weight 2466 grams (5 pounds 7 ounces, 66th percentile), normal amniotic fluid index, and posterior placenta. - She notes discrepancy in amniotic flui d measurements between different facilities. - [facility]'s measured FELECIA at 14 .6 on recent visit - Another facility measured 5.5 on Thu, which she questions given the specialist measurement - Previous measurement was 6.4 - She continues working and plans to wor k until approximately 37 weeks gestation. - She denies heavy lifting at work and r eports she can manage her current workload. - She received Rhogam at 28 weeks but trinh s not yet received Tdap vaccine. - She has not received flu shot or RSV vaccine yet. - Administer Tdap vaccine today - Patient to obtain flu shot and RSV vac cine at pharmacy (can be given together) - Continue weekly visits, next appointment in 2 weeks - Plan for patient to work until 37 week s gestation - Provider to personally measure amnioti c fluid index at next Thursday's appointment 06/01/25 -?-?-?-?-?-?-?-?-?-?-?-?- 36w 0d 88.564 kg 134/80 occasional cephalic 36 165 active - She has s lightly elevated blood pressures today at 134/80 mmHg. - She has gestational diabetes mellitus and was previously on metformin, but discontinued the medication due to low glucose levels. - She reports her blood sugars have been okay with nothing super high since stopping metformin. - She is Rh-negative. - She had an amniotic fluid index (FELECIA) measurement yesterday which was 10, with the previous measurement being 12. - Hold metformin due to low glucose levels - GBS culture to be performed via self-s wab between 35-37 weeks - FELECIA monitoring - recent measurements a t labor and delivery have been acceptable (10-12), no repeat needed today given yesterday's measurement - Continue glucose monitoring 06/08/25 -?-?-?-?-?-?-?-?-?-?-?-?- 37w 0d 89.868 kg 122/85 occasional cephalic 37 145 active - She reports constant pelvic pressure that is not like contractions. - She experiences intermittent cramping that comes and goes. - She has noticed increased white vagina l discharge. - She reports losing some mucus plug fiona t is jelly-like, sticky, and stretchy. - She denies bleeding or leaking of ronnie r fluid. - Yesterday she noticed sticky fluid fro m her breast, consistent with early . - Baby remains active with good mo vement. - She is currently working but plans to finish next week at 38 week s gestation. - Check for cervical dilation at next visit - Obtain GBS culture results when [facility] portal is available - Patient to finish work at 38 weeks ( xt week is last week) - Return to Labor and Delivery anytime f or increased contractions or pressure - Follow up in one week - Have hospital bag ready and transporta tion arranged 06/22/25 -?-?-?-?-?-?-?-?-?-?-?-?- 39w 0d 89.584 kg 123/83 occasional cephalic 38 155 active - She reports mild cramping that feels similar to period cramps. - She denies having contractions yet, de scribing only the mild cramping sensation. - Yesterday after anesthesia, she experi enced something similar to contractions starting from the top and traveling down. - During this time, the baby was super active for maybe an hour straight. 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 - She has not been checked for cervical dilation at all during this . - Schedule induction for 41 weeks as backup in case patient does not go into labor spontaneously - Return for one-week follow-up appointm ent - Membrane sweep performed during today' s visit 06/27/25 -?-?-?-?-?-?-?-?-?-?-?-?- 39w 5d 89.471 kg 135/80 occasional cephalic 40 161 active - She reports no contractions currently. - She denies fever. - She reports no vaginal bleeding. - She continues taking aspirin as prescr ibed and inquired about continuing it until delivery. - She reports slightly elevated blood pr essure today, noting that her blood pressure tends to be higher on the right arm versus the left arm. - During NST visits, blood pressure ty pically normalizes after checking three times. - She experiences numbness and tingling in her arm, which she attributes to carpal tunnel symptoms. - She denies concerns about decreased fe julianne movement. - She denies any leaking of fluid. - Patient has scheduled NST appointments (tomorrow and next ay). - Induction scheduled for July 08 at 41+ weeks gestation - Patient to call at 8 AM on induction d ate for room assignment and arrival time - Continue aspirin until delivery - Monitor blood pressure at next NST oern ointment tomorrow; if her BP exceeds 140/100, she will need to induce sooner - Continue weekly NST appointments - Patient instructed to come to hospital for contractions every 5 minutes or closer, decreased movement, leaking fluid, or bleeding - Recheck blood pressure on left arm due to elevated reading on right arm RASHAAD Calculator Estimated Delivery Date Method Current WG Current Estimate 06/29/25 LMP (Certain) 45w 5d Specific Issue/Plans Rh-. Will need RhoGAM. Notes Visit Date: 05/03/25 Last Updated by: Miguel Amos MD - Ultrasound: - position: Head down, not engaged in lower pelvis Visit Date: 01/04/25 Last Updated by: Sandra Seals (OB Clinic)MD NIPT reviewed with patient and father the baby 46XX HPI Interval History: Patient is a female presenting for a 3-week visit following vaginal delivery on June 30, 2025. She delivered one day after her due date after initially being sent home from the hospital when she could not progress beyond 2 centimeters of cervical dilation. She returned to the hospital 3 hours later and was delivered by Dr. Seals, requiring a couple of stitches during delivery. The patient reports that her stitches have already been absorbed and are healing well without any issues. She is currently feeding her baby using both and bottle feeding. She has good support at home with many people helping her and reports getting enough sleep. She does not feel alone during this period. The patient inquired about aspirin use during , which she had been taking but stopped on the day of delivery as instructed. She is not interested in starting control at this time, having been on control in the past but preferring to wait. She does not plan on getting again but wants to delay contraception for now. The baby is doing well and is being seen by Dr. Avila at [facility] for pediatric care. The patient reports no other concerns or issues that are bothering her and feels she is doing okay overall. Surgical History: - Vaginal delivery on June 30, 2025 with perineal repair requiring sutures Obstetric History: - GTPAL: G1 T1 L1 - Recent delivery: Delivered on June 30 via spontaneous vaginal delivery, required sutures, delivered by Dr. Seals, currently 3 weeks Medications: - vitamins - Aspirin, discontinued the day of delivery Social History: - Lives with partner who cares for baby at home - Reports having a lot of people helping her and does not feel alone Exam General General Appearance: alert, in no apparent distress and healthy appearing Head Head exam: atraumatic Neck Neck exam: Present normal inspection and trachea midline Chest Chest inspection: Present normal inspection and symmetric chest wall rise External exam: Present normal external exam; Absent tenderness Neuro Neurological exam: Present oriented X3 Psych Psychiatric exam: Present normal affect and normal mood Office Procedures [facility] LOC & Office Proc's Nursing/Assessment Patient Status: Established Patient OB Clinic Nursing Assessment: Medication Reconciliation, Update PMH in EMR and Vital Signs OB Clinic Coordination of Care: Complex Care and Chronic Disease 1-5, Consent,records obtained, informed consent, Education Simp Pt/Fam, 1 Ins Authorization, Lab and Imaging orders, Results/Orders obtained and Staff clarify orders Established Patient Charge Established Patient Point Assignment: 120 Established Patient Point Charge: EP Level 4 (120-155) Assessment & Plan Diagnosis / Problem List (1) Encounter for routine follow-up: Status: Acute Plan status post vaginal delivery Assessment: Patient is 3 weeks following vaginal delivery on June 30. She received chromic sutures which have dissolved as expected. She is doing well overall with good support system and adequate sleep. She is combination feeding. 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 Plan: - Continue current recovery - Take multivitamin - High-dose vitamin D 5000 units daily for 6 months - Discontinue aspirin - Defer control initiation for first 3 months to avoid affecting breast milk output - Return visit scheduled for work clearance letter prior to August 14 return to work date
[2025-07-25 10:24] VITALS: BP 128/88; PULSE 104; RESP 20; TEMP 36.4; O2SAT 96
== END 2025-07-25 10:33 | disposition home or self-care (01) ==
LOC: HODSOBC 10:01
PROVIDERS: Supervising Provider Obstetrics & Gynecology; Visit Provider Obstetrics & Gynecology
DX: Z39.2 Encounter for routine postpartum follow-up (principal); Z39.1 Encounter for care and examination of lactating mother
CPT/HCPCS: 99214; G0463

== ENCOUNTER 2025-08-07 10:27 | Outpatient (AMB) | payer BC, SELFPAY ==
[2025-08-07 10:42] VITALS: BP 114/77; PULSE 66; RESP 18; TEMP 36.3; O2SAT 98; BMI 30.4
--- NOTE | 2025-08-07 10:42 | GYNCLNT_ITS ---
Vital Signs 08/07/25 10:42 Height 1.65 m Height Method Stated Weight 82.724 kg Weight Measurement Method Standing Scale BMI 30.4 BP 114/77 Blood Pressure Source Automatic Cuff Blood Pressure Location Right Upper Arm Position Sitting Respiration 18 Pulse 66 Pulse Source Monitor Temp 97.4 F Temp Source Temporal Artery Scan Pulse Oximetry (%) 98 Oxygen Delivery Method Room Air Allergies/Home Meds Allergies & Medications Allergies No Known Allergies Allergy (Verified 08/07/25 10:43) Medication Reconciliation vits no.126-ferrous fum 28 mg iron-folic acid 800 mcg tablet (Classic ) 1 tab PO QDAY 12/06/24 [History Confirmed 08/07/25] acetaminophen 325 mg tablet 650 mg (2 x 325 mg) PO Q4H PRN See Comments #60 tabs 07/01/25 [Rx Confirmed 08/07/25] hydrocodone 5 mg-acetaminophen 325 mg tablet 2 tab PO Q6HR PRN Patient rated pain 9 to 10 #10 tabs 07/01/25 [Rx Confirmed 08/07/25] ibuprofen 400 mg tablet 800 mg (2 x 400 mg) PO Q8H PRN See Comments #60 tabs 07/01/25 [Rx Confirmed 08/07/25] Intake Visit Data Collection New Patient or Established: Established Patient (seen at [facility] within 3 years) Reason for Visit:: WORK CLEARANCE Seen by Clinical Staff ONLY (RN/MA): No Nursing Admin Required: No Do You Feel Safe at Home: Yes Authorities Contacted: N/A PCP or OBGYN visit in last 3 months: Yes Date of Last PCP or OBGYN visit: 07/25/25 Hx Now: No Are you currently on any form of Control: No Pain Present Currently: No Pain Scale Used: Maya-Hall/Numerical Pain scale:: 0 Smoking Status Smoking Status: Never smoker Immunizations Flu Vaccine in the Last 12 Months: No Flu Vaccine Exclusion Criteria: No Exclusion Criteria [employer]: Past Medical History Past Medical History: No Hx Neurological Disorders, Yes Hx Cardiac Disorders (hx tachycardia), No Hx Gastrointestinal Disorders, No Hx Renal Disease, No Hx Diabetes Mellitus Type 1 and No Hx Diabetes Mellitus Type 2 Questionnaires Covid-19 Vaccine Questionnaire Has patient been vacinated for Covid-19 Have you been vacinated for Covid-19: No PHQ-9 PHQ-2 Over the last 2 weeks, how often have you been bothered by any of the following problems? 1. Little interest or pleasure in doing things: not at all 2. Feeling down, depressed, or hopeless: not at all Total score: 0 PHQ-9 3. Trouble falling or staying asleep, or sleeping too much: Not at all 4. Feeling tired or having little energy: Not at all 5. Poor appetite or overeating: Not at all 6. Feeling bad about yourself - or that you are a failure or have let yourself or your family down: Not at all 7. Trouble concentrating on things, such as reading the newspaper or watching television: Not at all 8. Moving or speaking so slowly that other people could have noticed? - Or the opposite - being so fidgety or restless that you have been moving around a lot more than usual: not at all 9. Thoughts that you would be better off or of hurting yourself in some way: Not at all Total score: 0 If you checked off any problems, how difficult have these problems made it for you to do your work, take care of things at home, or get along with other people?: not difficult at all Source: Developed by Drs. Brian Gamble, Marsha Calle, Nayan Regan and colleagues, with an educational rayray from [employer]. Depression screen completed yes Social History Living Situation History Marital Status: Lives With: Family Housing: House Tobacco History Smoking Status: Never smoker Second Hand Smoke Exposure: No Alcohol History Alcohol Intake: Never Domestic Abuse History Do You Feel Safe at Home: Yes History of Present Illness HPI Narrative María Chaparro presents for clearance to return to work following vaginal delivery. She reports being physically ready to return to work but expresses a desire to stay home longer if possible. She is scheduled to return to work on August 14 and requires a clearance letter without restrictions. The patient had an uncomplicated vaginal and denies any current physical limitations or concerns. She does not desire control at this time. She has a recent delivery via vaginal and is currently at her 6-week post visit. The patient is being cleared to return to work without restrictions after normal vaginal delivery. She is currently employed and planning to return to work on August 14. She [place] through her [place], with leave available until baby's first birthday. ROS: Negative except as stated above, limited to [employer] and pertinent complaints. Exam General General Appearance: alert, in no apparent distress and healthy appearing Head Head exam: atraumatic Neck Neck exam: Present normal inspection and trachea midline Chest Chest inspection: Present normal inspection and symmetric chest wall rise External exam: Present normal external exam; Absent tenderness Neuro Neurological exam: Present oriented X3 Psych Psychiatric exam: Present normal affect and normal mood Office Procedures [facility] Clinic LOC & Office Proc's Nursing/Assessment Patient Status: Established Patient OB Clinic Nursing Assessment: Medication Reconciliation, Update PMH in EMR and Vital Signs OB Clinic Coordination of Care: Complex Care and Chronic Disease 1-5, Education Complex Pt/Fam, Consent,records obtained, informed consent, Lab and Imaging orders, Results/Orders obtained and Staff clarify orders Established Patient Charge Established Patient Point Assignment: 110 Established Patient Point Charge: EP Level 3 (80-115) Assessment & Plan Diagnosis / Problem List (1) Term delivered: Status: Acute (2) Encounter for routine follow-up: Status: Acute Plan Return to Work Clearance: - 6 weeks following vaginal delivery. - Patient reports feeling physically ready to return to work. - Pelvic floor recovery adequate for normal work activities. - No medical restrictions indicated following uncomplicated vaginal delivery. Plan: - Provide work clearance letter for return to work August 14 without restrictions. - Advised to avoid sudden heavy lifting initially but no formal weight restrictions after vaginal delivery. - Counseled regarding [place] availability through employer for additional voluntary leave time until baby's first birthday. Contraceptive Counseling: - Patient declined contraception at this visit. Plan: - No contraception initiated per patient preference.
== END 2025-08-07 10:52 | disposition home or self-care (01) ==
LOC: HODSOBC 10:27
PROVIDERS: Supervising Provider Obstetrics & Gynecology; Visit Provider Obstetrics & Gynecology
DX: Z39.2 Encounter for routine postpartum follow-up (principal)
CPT/HCPCS: 99213; G0463